=== PATIENT | male | born 1970 | race Two or more races ===

== ENCOUNTER 2018-07-22 09:22 | Inpatient (IN) | payer SELFPAY ==
[~2018-07-22] VITALS: Ht 170.2 cm; Wt 80.5 kg
--- NOTE | 2018-07-22 09:30 | NUR ---
ED Nurse Note: patient was brought by RA from the street, complaining for abdomen pain 01/19, no N/V/D. pt. has unsteady gait, AAO x 4, skin is dry, has some abrasions on his arms, patient has jaundice. per patient he had 1 botle of beer last night. pt was placed on gown and connected to monotor.
[2018-07-22] MEDS ORDERED: Isovue-300 100ml vial INJ PRN (09:45)
[2018-07-22] MEDS ORDERED: Morphine Sulfate 4mg/ml Inj (IV/IM USE ONLY) IVP ONE (09:45)
[2018-07-22] MEDS ORDERED: LORazepam Inj 2mg/ml 1ml IV ONE (09:45)
[2018-07-22 09:53] LABS: HEMATOCRIT 38.5 % (42.0-52.0); MEAN CORPUSCULAR VOLUME 112 FL (80-99); PLATELET COUNT 136 K/UL (150-450); RED BLOOD COUNT 3.43 M/UL (4.70-6.10); RED CELL DISTRIBUTION WIDTH 14.2 % (11.6-14.8); WHITE BLOOD COUNT 6.8 K/UL (4.8-10.8)
[2018-07-22 10:02] LABS: ANION GAP 6 mmol/L (5-15); BLOOD UREA NITROGEN 5 mg/dL (7-18); CALCIUM 8.4 MG/DL (8.5-10.1); CARBON DIOXIDE 26 MMOL/L (21-32); CHLORIDE 94 MMOL/L (98-107); CREATININE 0.8 MG/DL (0.55-1.30); POTASSIUM 3.9 MMOL/L (3.5-5.1); SODIUM 126 MMOL/L (136-145)
[2018-07-22 10:07] LABS: ALANINE AMINOTRANSFERASE 59 U/L (12-78); ALBUMIN 2.4 G/DL (3.4-5.0); ALBUMIN/GLOBULIN RATIO 0.4 (1.0-2.7); ALKALINE PHOSPHATASE 320 U/L (46-116); ASPARTATE AMINO TRANSFERASE 152 U/L (15-37); BILIRUBIN,TOTAL 10.1 MG/DL (0.2-1.0)
[2018-07-22 10:16] LABS: BILIRUBIN,DIRECT 7.7 MG/DL (0.0-0.3)
--- NOTE | 2018-07-22 10:22 | Emergency Room Report ---
History of Present Illness General Chief Complaint: Abdominal Pain Source: Patient, EMS Present Illness HPI 48-year-old male presents ED for evaluation. Patient brought in by EMS from the street. Complaining of abdominal pain. Left-sided, sharp, 7 out of 10, nonradiating. Patient admits to alcohol use. States he had a drink this morning. Appears tremulous. States he drinks every day. States he's had paracentesis done before on his abdomen. Denies chest pain or shortness of breath. Denies fevers or chills. No other aggravating relieving factors. Denies any other associated symptoms Allergies: Coded Allergies: No Known Allergies (Unverified , 07/22/18) Patient History Past Medical History: none Past Surgical History: none Pertinent Family History: none Social History: Denies: smoking, alcohol use, drug use Immunizations: UTD Reviewed Nursing Documentation: PMH: Agreed; PSxH: Agreed Nursing Documentation-PMH Past Medical History: No Stated History Review of Systems All Other Systems: negative except mentioned in HPI Physical Exam Vital Signs Date Time Temp Pulse Resp B/P (MAP) Pulse Ox O2 Delivery O2 Flow Rate FiO2 07/22/18 09:16 98.1 91 14 120/83 97 Room Air Sp02 EP Interpretation: reviewed, normal General Appearance: no apparent distress, alert, GCS 15, other - tremulous Head: normocephalic, atraumatic Eyes: bilateral eye normal inspection, bilateral eye PERRL, bilateral eye scleral icterus ENT: hearing grossly normal, normal pharynx, no angioedema, normal voice Neck: full range of motion, supple/symm/no masses Respiratory: chest non-tender, lungs clear, normal breath sounds, speaking full sentences Cardiovascular #1: regular rate, rhythm, no edema Cardiovascular #2: 2+ carotid (R), 2+ carotid (L), 2+ radial (R), 2+ radial (L) , 2+ dorsalis pedis (R), 2+ dorsalis pedis (L) Gastrointestinal: normal bowel sounds, soft, no guarding, no rebound, distended Rectal: deferred Genitourinary: normal inspection, no CVA tenderness Musculoskeletal: back normal, gait/station normal, normal range of motion, non- tender Neurologic: alert, oriented x3, responsive, motor strength/tone normal, sensory intact, speech normal Psychiatric: judgement/insight normal, memory normal, mood/affect normal, no suicidal/homicidal ideation Reflexes: 3+ bicep (R), 3+ bicep (L), 3+ tricep (R), 3+ tricep (L), 3+ knee (R) , 3+ knee (L) Skin: normal color, no rash, warm/dry, well hydrated Lymphatic: no adenopathy Medical Decision Making Diagnostic Impression: Primary Impression: Cirrhosis Qualified Codes: K70.31 - Alcoholic cirrhosis of liver with ascites Additional Impressions: Ascites Qualified Codes: K70.31 - Alcoholic cirrhosis of liver with ascites Liver failure Qualified Codes: K72.90 - Hepatic failure, unspecified without coma Jaundice Portal hypertension Alcohol withdrawal Qualified Codes: F10.230 - Alcohol dependence with withdrawal, uncomplicated ER Course Hospital Course 48 yo M presents with jaundice, tremulous, LUQ pain Differential diagnoses include: pancreatitis, splenic rupture, ascites Clinical course Patient placed on stretcher. playground monitor. After initial history and physical I ordered labs, IV fluids, ativan, pain medication and CT scan Labs - no leukocytosis, Hb/Hct stable. Na 126, LFTs markedly elevated, ETOH elevated CT abdomen and pelvis - cirrhotic liver, portal hypertension, ascites, s/p splenectomy Ascites is not causing shortness of breath or instability. No indication for an emergent paracentesis in ED. Can be done by IR Dr. Monsivais will consult and see the patient. patient will be admitted to Dr Castro for inpatient management I feel this is a highly complex case requiring extensive working including EKG/ Rhythm strip, Xray/CT/US, Blood/urine lab work, repeat exams while in ED, and administration of strong opiates/narcotics for pain control, admission to hospital or close patient follow up. Diagnosis - cirrhosis, ascites, liver failure, jaundice, portal hypertension, alcohol withdrawal Patient admitted to floor in serious condition Labs Test 07/22/18 09:35 White Blood Count 6.8 K/UL (4.8-10.8) Red Blood Count 3.43 M/UL (4.70-6.10) Hemoglobin 13.0 G/DL (14.2-18.0) Hematocrit 38.5 % (42.0-52.0) Mean Corpuscular Volume 112 FL (80-99) Mean Corpuscular Hemoglobin 37.8 PG (27.0-31.0) Mean Corpuscular Hemoglobin Concent 33.7 G/DL (32.0-36.0) Red Cell Distribution Width 14.2 % (11.6-14.8) Platelet Count 136 K/UL (150-450) Mean Platelet Volume 6.9 FL (6.5-10.1) Neutrophils (%) (Auto) % (45.0-75.0) Lymphocytes (%) (Auto) % (20.0-45.0) Monocytes (%) (Auto) % (1.0-10.0) Eosinophils (%) (Auto) % (0.0-3.0) Basophils (%) (Auto) % (0.0-2.0) Differential Total Cells Counted 100 Neutrophils % (Manual) 62 % (45-75) Lymphocytes % (Manual) 23 % (20-45) Monocytes % (Manual) 12 % (1-10) Eosinophils % (Manual) 3 % (0-3) Basophils % (Manual) 0 % (0-2) Band Neutrophils 0 % (0-8) Platelet Estimate Decreased Platelet Morphology Normal Macrocytosis 2+ Target Cells 1+ Sodium Level 126 MMOL/L (136-145) Potassium Level 3.9 MMOL/L (3.5-5.1) Chloride Level 94 MMOL/L (98-107) Carbon Dioxide Level 26 MMOL/L (21-32) Anion Gap 6 mmol/L (5-15) Blood Urea Nitrogen 5 mg/dL (7-18) Creatinine 0.8 MG/DL (0.55-1.30) Estimat Glomerular Filtration Rate > 60 mL/min (>60) Glucose Level 95 MG/DL (74-106) Calcium Level 8.4 MG/DL (8.5-10.1) Total Bilirubin 10.1 MG/DL (0.2-1.0) Direct Bilirubin 7.7 MG/DL (0.0-0.3) Aspartate Amino Transf (AST/SGOT) 152 U/L (15-37) Alanine Aminotransferase (ALT/SGPT) 59 U/L (12-78) Alkaline Phosphatase 320 U/L (46-116) Total Protein 7.8 G/DL (6.4-8.2) Albumin 2.4 G/DL (3.4-5.0) Globulin 5.4 g/dL Albumin/Globulin Ratio 0.4 (1.0-2.7) Lipase 321 U/L (73-393) Serum Alcohol 239 mg/dL CT/MRI/US Diagnostic Results CT/MRI/US Diagnostic Results : Imaging Test Ordered: CT A/P Impression 1. Nodular liver surface suggestive of cirrhosis with moderate amount of ascites. Splenomegaly with paraesophageal varices suggestive of portal hypertension. 2. Status post splenectomy. Last Vital Signs Date Time Temp Pulse Resp B/P (MAP) Pulse Ox O2 Delivery O2 Flow Rate FiO2 07/22/18 09:16 98.1 91 14 120/83 97 Room Air Status: improved Disposition: ADMITTED INPATIENT Condition: Serious Scripts No Active Prescriptions or Reported Meds Yobani Fountain MD Jul 22, 2018 10:22
--- NOTE | 2018-07-22 10:30 | NUR ---
ED Nurse Note: patient went for CT of abdomen
--- NOTE | 2018-07-22 10:50 | NUR ---
ED Nurse Note: pt. came back from CT VSS, no s/s of acute disstress, pt connected back to monitor
[2018-07-22 10:52] VITALS: BP 138/87
[2018-07-22 11:12] VITALS: BP 114/68
--- NOTE | 2018-07-22 11:25 | Diagnostic Imaging Report ---
INDICATION: Abdominal pain TECHNIQUE: Multiple, contiguous axial cuts of the abdomen and pelvis are obtained from the lung bases to the ischial tuberosities. Sagittal and coronal reformatted images are available. One or more of the following dose reduction techniques were used: automated exposure control, adjustment of the mA and/or kV according to patient size, use of iterative reconstruction technique. COMPARISON: None FINDINGS: Mild bilateral lower lobe subsegmental atelectasis. The lung bases are otherwise clear. The liver surface is nodular, may be suggestive of cirrhosis. Moderate amount of ascites. Status post cholecystectomy. Splenomegaly at 13.7 cm indicative of portal hypertension. Paraesophageal varices are seen. The bile ducts and pancreas are normal. The adrenal gland are unremarkable. The kidneys are normal in size and contour. No stones, lesions or hydronephrosis. The appendix is unremarkable, as is the rest of the GI tract. Aorta is normal caliber. No adenopathy or extraluminal air. The osseous structures are normal IMPRESSION: 1. Nodular liver surface suggestive of cirrhosis with moderate amount of ascites. Splenomegaly with paraesophageal varices suggestive of portal hypertension. 2. Status post splenectomy. CTDI: 19.07 mGy DLP: 1183.55 mGycm
--- NOTE | 2018-07-22 12:07 | NUR ---
ED Nurse Note: pt prepared for inpt admission awaiting bed assignment. pt cleansed and swabs obtained. skin with mutliple abrasion and ecchymosis, pictures taken. pt tolerates well. no new orders noted
--- NOTE | 2018-07-22 12:38 | NUR ---
CASE MANAGEMENT: INITIAL REVIEW 48 YO M REY FROM THE STREET CC: ABD PAIN PMHx: DENIES SI:ETOH WITHDRAWAL. JAUNDICE. CIRRHOSIS. T 98.1 HR 91 RR 14 B/P 120/83 SATS 97% ON RA NA 126 CL 94 BUN 5 CA 8.4 TBILI 10.1 DBILI 7.7 AST 152 ALP 320 IS: PEPCID IV X1 MORPHINE IV X1 NS BOLUS X1 ATIVAN IV X1 PATIENT ADMITTED TO MED/SURG 07/22/2018 @ 1113 DCP: TO BE ARRANGED Addendum: 07/22/18 at 1532 by Ai Carmen CM INTERQUAL MET FOR ACUTE
--- NOTE | 2018-07-22 12:47 | NUR ---
ED Nurse Note: ATTEMPTED TO GIVE REPORT TO DAVID RN NOT AVAILABLE AND TO CALL BACK
[2018-07-22 12:48] VITALS: BP 103/77
--- NOTE | 2018-07-22 13:15 | NUR ---
ED Nurse Note: REPORT GIVEN TO 4 DAVID RN. PT WITH MINI COG TEST INITIATED IN ED PT UNABLE TO PERFOR. HOMELESS DC CRITERIA PAPERS SENT WITH PT CHART TO [facility] FOR PTS DC FROM INPATIENT WHEN PERFORMED
[2018-07-22] MEDS ORDERED: LORazepam Inj 2mg/ml 1ml IV PRN (14:45)
[2018-07-22 16:00] VITALS: BP 124/79
--- NOTE | 2018-07-22 16:44 | NUR ---
NURSE NOTES: Pt is difficult to assess intoxicated at this time. Wakes up spontaneously to answer some questions. Pt has been sleeping since arrival on floor. Pt is malodorous. Presence of bilateral edema . Abdomen is large and distended. Per report of Er nurse pt had incontinence episode of BM in ER. Bowel sounds present. Pt also has a small skin concern to left hip area
[2018-07-22] MEDS: Lactulose 20gm/30ml UDC ORAL SCH (18:28)
[2018-07-22] MEDS: Thiamine 100mg in D5W 55ml IVPB SCH (18:50)
[2018-07-22] MEDS: Folic Acid 1 MG, Magnesium Sulfate 2,000 MG, Multivitamin - 12 Injection 10 ML in Sodiu... IV SCH (18:50)
--- NOTE | 2018-07-22 19:26 | NUR ---
NURSE NOTES: Dr Jacobs called to inform him that pt has scrotal swelling as well as bilateral edema, and abdominal distention. Dr gave orders for paracentesis, and to elevate scrotal area . Pt family has been at bed side since earlier in shift. Informed mortgage underwriter that that pt does not have any other medical history besides alcohol abuse, cirrhosis. pt does not have hx of DM or heart issues. Per ex- has been seperated for over 5 years, but does want to be informed about any changes. Pt is slightly more talkative since admittance , but still remains to fall asleep quickly when spoken too. Orders placed for paracentesis, and order for Tylenol 325 mg tid for pain
[2018-07-22 20:00] VITALS: BP 141/89
--- NOTE | 2018-07-22 20:50 | NUR ---
NURSE NOTES: Received report from MOISES Buck. Patient A&Ox2. On room air, no signs labored breathing. IV intact, patent, and infusing IV fluids. Patient complaining of 10/10 pain and nausea. Notified MD to receive addition orders and received them. Will implement and continue to monitor. Bed in lowest position with call light in reach.
--- NOTE | 2018-07-22 20:58 | NUR ---
HAND-OFF: Report given to Aishwarya DE LEON.
--- NOTE | 2018-07-22 20:59 | NUR ---
NURSE NOTES: MD also aware of HR off 115, orders for pain medication have been give. MD also aware that patient has bilateral edema but SCDs have dev ordered. Will put in order for venous duplex per MD before SCDs can be applied.
[2018-07-22] MEDS: Morphine Sulfate 2mg/ml Inj IVP PRN (22:20)
[2018-07-23] VITALS: BP 118/63
[2018-07-23 04:00] VITALS: BP 110/65
--- NOTE | 2018-07-23 07:30 | NUR ---
NURSE NOTES: Received pt from MOISES LU. Pt is orient x3. No SOB or acute respiratory distress noted. pt has in tact iv access RAC 20g is running well. Dr RUCKER visited pt and is aware Urin is reddish with no new order.all needs attended, bed is locked and is in the lowest position. call light within easy reach. will continue to monitor.
[2018-07-23 08:00] VITALS: BP 106/68
[2018-07-23 08:15] LABS: ANION GAP 9 mmol/L (5-15); BLOOD UREA NITROGEN 5 mg/dL (7-18); CALCIUM 7.8 MG/DL (8.5-10.1); CARBON DIOXIDE 23 MMOL/L (21-32); CHLORIDE 99 MMOL/L (98-107); CREATININE 0.8 MG/DL (0.55-1.30); POTASSIUM 4.2 MMOL/L (3.5-5.1); SODIUM 131 MMOL/L (136-145)
--- NOTE | 2018-07-23 08:15 | History and Physical Report ---
DATE OF ADMISSION: 07/22/2018 CHIEF COMPLAINT: Cirrhosis, ascites, and end-stage liver disease. HISTORY OF PRESENT ILLNESS: The patient is a 48-year-old male. He has a history of cirrhosis, presented with complaints of alcohol intoxication. He was noted to be jaundiced with a bilirubin of 10. According to the patient, he has been drinking for "years." On evaluation of the emergency room, the patient had a CT scan of the abdomen showed moderate ascites with a nodular-appearing liver consistent with cirrhosis. The patient is now admitted with complaints of abdominal pain. He is noted to have lower extremity edema. PAST MEDICAL HISTORY: As above. PAST SURGICAL HISTORY: Includes cholecystectomy. CURRENT MEDICATIONS: Reconciled and reviewed. ALLERGIES: None. FAMILY HISTORY: Unknown. SOCIAL HISTORY: There is no known history of tobacco or drugs. The patient has been drinking for many years. PHYSICAL EXAMINATION: VITAL SIGNS: Temperature 98, pulse 106, respirations 18, and blood pressure 118/63. GENERAL: The patient is well developed. He is icteric. NECK: Supple. HEART: Regular rate and rhythm. LUNGS: Clear. ABDOMEN: Soft and distended with a fluid wave. EXTREMITIES: No clubbing or cyanosis. 1 to 2+ pitting edema. The patient has multiple abrasions on his feet. LABORATORY DATA: White count 6 and hemoglobin 13. Sodium 126 and potassium 3.9. Bilirubin of 10. Alcohol level was 239. ASSESSMENT: This is an unfortunate male with a history of end-stage liver disease, admitted with compensated liver failure secondary to persistent alcohol use. He has ascites and hyponatremia due to his liver disease. PLAN: 1. Fluid restriction. 2. Therapeutic paracentesis. 3. PPI treatment. 4. Ativan and IV hydration with multivitamins, thiamine, and folic acid. 5. we will follow up paracentesis results. Jeni Jalloh JOB#: [id number] CC:
--- NOTE | 2018-07-23 08:17 | NUR ---
HAND-OFF: Report given to MOISES Sharma.
--- NOTE | 2018-07-23 08:24 | NUR ---
NURSE NOTES: Received plt [address] jewell left massage regarding plt and HR waiting to call back. will continue to monitor.
[2018-07-23] MEDS: Spironolactone 50mg tab ORAL SCH (08:53)
[2018-07-23] MEDS: Lactulose 20gm/30ml UDC ORAL SCH ×3 (08:53→18:00)
--- NOTE | 2018-07-23 10:07 | NUR ---
NURSE NOTES: Dr RUCKER called back and he is aware about Temperature, HR, PLT, no new order. will continue to monitor.
[2018-07-23 12:00] VITALS: BP 108/64
[2018-07-23 12:16] LABS: INR 1.6 (0.9-1.1)
[2018-07-23 12:17] LABS: HEMATOCRIT 29.9 % (42.0-52.0); HEMOGLOBIN 10.2 G/DL (14.2-18.0); MEAN CORPUSCULAR VOLUME 113 FL (80-99); PLATELET COUNT 100 K/UL (150-450); RED BLOOD COUNT 2.64 M/UL (4.70-6.10); RED CELL DISTRIBUTION WIDTH 14.7 % (11.6-14.8); WHITE BLOOD COUNT 6.3 K/UL (4.8-10.8)
--- NOTE | 2018-07-23 12:37 | Consultation ---
History of Present Illness General Date patient seen: Jul 23, 2018 Reason for Hospitalization: Abdominal Pain Present Illness HPI 48 year old male with heavy EtOH history who is a poor historian presented with abdominal pain. states pain left side upper abdomen discomfort generalized. mild nausea. came in for evaluation of abdominal pain. CT demonstrated ascites and liver cirrhosis. surgery called to evaluate for abdominal pain. patient seen, chart reviewed, patient examined. Allergies: Coded Allergies: No Known Allergies (Unverified , 07/22/18) Medication History No Active Prescriptions or Reported Meds Patient History History Provided By: Patient, Medical Record, PMD Healthcare decision maker Resuscitation status Full Code Advanced Directive on File Past Medical/Surgical History Past Medical/Surgical History: (1) Abdominal pain (2) Ascites (3) Cirrhosis (4) Jaundice (5) Liver failure (6) Portal hypertension (7) Alcohol withdrawal Review of Systems Review of Symptoms General ROS: no weight loss or fever Psychological ROS: no depression or mood changes, no memory loss Ophthalmic ROS: no visual changes or eye irritation ENT ROS: no nasal congestion, hearing loss, dizziness Allergy and Immunology ROS: no allergic symptoms or urticaria Hematological and Lymphatic ROS: no swollen glands, unusual bleeding or bruising Endocrine ROS: no polyuria, polydipsia, weight changes, temperature intolerance Respiratory ROS: no cough, shortness of breath, or wheezing Cardiovascular ROS: no chest pain or dyspnea on exertion Gastrointestinal ROS: denies abdominal pain, bright red blood in stool. Musculoskeletal ROS: no myalgias or arthralgias Neurological ROS: no TIA or stroke symptoms Dermatological ROS: no new or changing skin lesions, rashes or pruritis Physical Exam Physical Exam General appearance: alert, cooperative, no distress, appears stated age Head: Normocephalic, without obvious abnormality, atraumatic Eyes: conjunctivae/corneas clear. PERRL, EOM's intact. Fundi benign Throat: Lips, mucosa, and tongue normal. Teeth and gums normal Neck: supple, symmetrical, trachea midline, no adenopathy, thyroid: not enlarged, symmetric, no tenderness/mass/nodules, no carotid bruit and no JVD Lungs: clear to auscultation bilaterally Heart: regular rate and rhythm, S1, S2 normal, no murmur, click, rub or gallop Abdomen: soft, non-tender. Bowel sounds normal. No masses, no organomegaly Extremities: extremities normal, atraumatic, no cyanosis or edema Pulses: 2+ and symmetric Skin: Skin color, texture, turgor normal. No rashes or lesions Neurologic: Grossly normal Last 24 Hour Vital Signs Date Time Temp Pulse Resp B/P (MAP) Pulse Ox O2 Delivery O2 Flow Rate FiO2 07/23/18 09:00 Room Air 07/23/18 08:54 124 106/68 07/23/18 08:00 99.8 124 20 106/68 (81) 98 07/23/18 04:00 99.2 116 18 110/65 (80) 95 07/23/18 00:00 98.7 106 18 118/63 (81) 94 07/22/18 21:00 Room Air 07/22/18 20:00 97.6 115 18 141/89 (106) 95 07/22/18 20:00 07/22/18 16:26 Room Air 07/22/18 16:00 Room Air 07/22/18 16:00 97.5 124/79 (94) 07/22/18 15:46 Room Air 07/22/18 15:41 Room Air 07/22/18 13:12 82 18 103/77 99 Room Air 07/22/18 12:48 82 18 103/77 99 Room Air Intake and Output 07/22/18 07/23/18 18:59 06:59 Intake Total 2260 ml 116 ml Output Total 400 ml 250 ml Balance 1860 ml -134 ml Intake Oral 260 ml 60 ml IV Total 2000 ml 56 ml Output Urine Total 400 ml 250 ml # Voids 1 # Bowel Movements 2 Laboratory Tests Test 07/23/18 07:00 07/23/18 11:45 Sodium Level 131 MMOL/L (136-145) L Potassium Level 4.2 MMOL/L (3.5-5.1) Chloride Level 99 MMOL/L (98-107) Carbon Dioxide Level 23 MMOL/L (21-32) Anion Gap 9 mmol/L (5-15) Blood Urea Nitrogen 5 mg/dL (7-18) L Creatinine 0.8 MG/DL (0.55-1.30) Estimat Glomerular Filtration Rate > 60 mL/min (>60) Glucose Level 73 MG/DL (74-106) L Calcium Level 7.8 MG/DL (8.5-10.1) L Ammonia 62 umol/L (11-32) H White Blood Count Pending Red Blood Count Pending Hemoglobin Pending Hematocrit Pending Mean Corpuscular Volume Pending Mean Corpuscular Hemoglobin Pending Mean Corpuscular Hemoglobin Concent Pending Red Cell Distribution Width Pending Platelet Count Pending Mean Platelet Volume Pending Neutrophils (%) (Auto) Pending Lymphocytes (%) (Auto) Pending Monocytes (%) (Auto) Pending Eosinophils (%) (Auto) Pending Basophils (%) (Auto) Pending Prothrombin Time Pending Prothromb Time International Ratio Pending Activated Partial Thromboplast Time Pending Height (Feet): 5 Height (Inches): 7.00 Weight (Pounds): 178 Medications Current Medications Medications (Trade) Dose Ordered Sig/Jm Route PRN Reason Start Time Stop Time Status Last Admin Dose Admin Acetaminophen (Tylenol) 325 mg TIDPRN PRN ORAL Mild Pain/Temp > 100.5 07/22/18 18:45 08/21/18 18:44 07/22/18 20:30 Folic Acid 1 mg/ Magnesium Sulfate 2000 mg/ Multivitamins 10 ml/Sodium Chloride 1,014.2 ml @ 125 mls/ hr Q24H IV 07/22/18 16:00 08/21/18 15:59 07/22/18 18:50 Furosemide (Lasix) 40 mg DAILY IV 07/23/18 09:00 08/22/18 08:59 07/23/18 08:54 Iopamidol (Isovue-300 100ml) 100 ml NOW PRN INJ Radiology Procedure 07/22/18 09:45 Labetalol HCl (Normodyne) 100 mg Q12HR ORAL 07/23/18 09:00 08/22/18 08:59 07/23/18 08:54 Lactulose (Cephulac) 30 gm THREE TIMES A DAY ORAL 07/22/18 18:00 08/21/18 17:59 07/23/18 08:53 Lorazepam (Ativan 2mg/ml 1ml) 1 mg Q4H PRN IV Agitation/withdrawal symptoms 07/22/18 14:45 07/29/18 14:44 Morphine Sulfate (Morphine Sulfate) 0.5 mg Q4H PRN IVP Pain 4-10 07/22/18 21:15 07/29/18 21:14 07/22/18 22:20 Ondansetron HCl (Zofran) 4 mg Q4H PRN IVP Nausea & Vomiting 07/22/18 21:15 08/21/18 21:14 Pantoprazole (Protonix) 40 mg DAILY ORAL 07/23/18 09:00 08/22/18 08:59 07/23/18 08:53 Sodium Chloride 1,000 ml @ 75 mls/hr [id number] IV 07/22/18 14:45 08/21/18 14:44 07/23/18 04:35 Spironolactone (Aldactone) 50 mg DAILY ORAL 07/23/18 09:00 08/22/18 08:59 07/23/18 08:53 Thiamine HCl 100 mg/Dextrose 56 ml @ 112 mls/hr Q24H IVPB 07/22/18 16:00 08/21/18 15:59 07/22/18 18:50 Assessment/Plan Problem List: (1) Abdominal pain Assessment & Plan: abdominal pain likely secondary to enlarged spleedn CT noted. no acute surgical intervention planned medical management of decompensated cirrhosis fluid restriction will consider paracentesis if needed trend labs thank you ICD Codes: R10.9 - Unspecified abdominal pain SNOMED: [id number] [facility] [place] Hospital declaration INPATIENT level of care is warranted for this patient because patient is a 89 year old with who presents with suspicion of . I have a high level of concern because . Patient is at high risk for . Plan of care/treatment include . Patient care is expected to be greater than 2 midnights. OBSERVATION level of care is warranted for this patient. Patient is a 89 year old with who presents with . Patient will be admitted for 1 midnight, but if additional night(s) is/are necessary, patient will be converted to inpatient status for the entire hospitalization Disposition: Once the patient is stable to leave the hospital, I anticipate the patient will likely be discharged to the following environment: Estimated discharge date: I spent 70 minutes on this patient's case, and minutes was dedicated to counseling and/or care coordination. MIPS (Merit-based Incentive Payment System) Applicable CPT: 74818, 02191 CHECK ALL THAT ARE MET: Measure #5 (CHF): All ages. Prescribe MAXIMO/ARB upon discharge for patients with left ventricular systolic dysfunction. If not, the reason is clearly documented in the medical chart. Measure #8 (CHF): All ages. Prescribe a beta manjula upon discharge for patients with left ventricular systolic dysfunction. If not, the reason is clearly documented in the medical chart. Measure #47 Advance care plan or surrogate decision maker documented in the medical record. Measure #130 The provider has documented, updated, or reviewed the patients current medication list and has documented it in the patients note. Measure #374 (All): Send report to referring provider. Measure #407(Sepsis due to MSSA bacteremia): Age 18+ Patient treated with a beta-lactam antibiotic (Nafcillin, Oxacillin or Cefazolin) as definitive therapy. MEDICAL COMPLEXITY High complexity medical decision making (need 2/3 categories) Problem - need 4 points Acute/new problem with new plan for workup (4 points, 1 max) Acute/new problem without additional workup (3 points, 1 max) Unstable chronic problem actively being managed (2 point each, 2 max) Stable chronic problem actively being managed (1 point each, 2 max) Self-limited/transient process (constipation, muscle ache, etc) (1 point each , 2 max) Data - need 4 points Reviewed labs/imaging studies (1 points, 2 max) Independent review of imaging (EKG, xrays, etc) (2 points, 2 max) Discussed case with consult/other MD/RN (2 points, 2 max) High Risk - qualify if have one of the following: Severe exacerbation of acute problem, acute mental status change, IV narcotics , monitoring drug levels (vancomycin, INR, tacrolimus etc) Zoran Monsivais Jul 23, 2018 12:37
--- NOTE | 2018-07-23 14:16 | NUR ---
NURSE NOTES: paracentesis finished with out put 5.7 lit. will continue to monitor.
--- NOTE | 2018-07-23 14:18 | Pre-Procedure Note/Attestation ---
Pre-Procedure Note/Attestation Complete Prior to Procedure Planned Procedure: not applicable Procedure Narrative: paracentesis Indications for Procedure Pre-Operative Diagnosis: ascites Attestation I attest that I discussed the nature of the procedure; its benefits; risks and complications; and alternatives (and the risks and benefits of such alternatives ), prior to the procedure, with the patient (or the patient's legal real estate representative). I attest that, if there was a reasonable possibility of needing a blood transfusion, the patient (or the patient's legal real estate representative) was given the [facility] standardized written summary, pursuant to the Trent Anay Blood Safety Act ([place] Health and Safety Code # 1645, as amended). I attest that I re-evaluated the patient just prior to the surgery and that there has been no change in the patient's H&P, except as documented below: Prasanth Bates MD Jul 23, 2018 14:18
--- NOTE | 2018-07-23 14:19 | Brief Operative Note ---
Immediate Post Operative Note Operative Note Chief Complaint: abdominal distention Pre-op Diagnosis: ascites Procedure: Paracentesis Post-op Diagnosis: same Post-op Diagnosis: same as pre-op Findings: consistent w/pre-op dx studies Surgeon: Kathy BATES Anesthesia: local Specimen: yes - fluid sent to the lab Complications: none Condition: stable Fluids: none Implant(s) used?: No Prasanth Bates MD Jul 23, 2018 14:19
[2018-07-23] MEDS: Thiamine 100mg in D5W 55ml IVPB SCH (15:40)
[2018-07-23] MEDS: Folic Acid 1 MG, Magnesium Sulfate 2,000 MG, Multivitamin - 12 Injection 10 ML in Sodiu... IV SCH (15:40)
[2018-07-23 16:00] VITALS: BP 104/59
--- NOTE | 2018-07-23 16:46 | NUR ---
Social Service Note MARIELENA spoke with both t's Ana Niki [phone] and India Niki [phone] to obtain history. Dgt's last seen patient during . Dgt's believe patient is homeless. Patient's Alexandra Tay has been from patient for about 5 years. Patient is a chronic alcoholic. India states she noticed patient with yellow eyes and significant weight loss during April. MARIELENA addressed code status, hospice and placement. Patient's will meet with [facility] tomorrow to complete application. India will attempt to speak with patient to determine if he understands the severity of his illness with her family. MARIELENA discussed with Dr. Castro with will discuss with family. Will monitor and follow up.
--- NOTE | 2018-07-23 17:25 | Diagnostic Imaging Report ---
Indications: Ascites Technique: Ultrasound used to localize optimal puncture site. Sterile prepping and draping . Local anesthesia with 1% lidocaine. Under real-time ultrasound guidance, puncture peritoneal space using paracentesis needle. Stylet removed. Catheter placed to vacuum bottle suction. Total 5.7 liters of fluid aspirated. Patient tolerated procedure well, without immediate complication. Specimen was sent to the lab Findings: Followup sonography demonstrates complete resolution of peritoneal fluid. Impression: Successful ultrasound-guided paracentesis, yielding 5.7 liters of fluid
--- NOTE | 2018-07-23 19:22 | NUR ---
HAND-OFF: Report given to VIDAL.
[2018-07-23 20:00] VITALS: BP 110/65
[2018-07-24] VITALS: BP 96/55
--- NOTE | 2018-07-24 02:00 | NUR ---
NURSE NOTES: Received patient in bed, and DTR by bedside. On RA, no SOB, no acute distress. IV intact, patent on RAC running fluids. Patient is shaky with unstable gait. Reminded to use call light for any assistance. Bed in lowest position, locked, alarms on. Call light in reach.
[2018-07-24 04:00] VITALS: BP 107/52
--- NOTE | 2018-07-24 07:15 | NUR ---
HAND-OFF: Report given to Edith DE LEON.
--- NOTE | 2018-07-24 07:20 | NUR ---
NURSE NOTES: Received pt from MOISES DRAKE. Pt is alert and orient x3. No SOB or acute respiratory distress noted. pt is eating breakfast by him self. pt is shaking and has unsteady walk. pt has intact iv access RAC 20g is running well. All needs attended, bed is locked and is in the lowest position. call light within easy reach. will continue to monitor.
[2018-07-24 08:00] VITALS: BP 113/59
--- NOTE | 2018-07-24 08:39 | General Progress Note ---
Assessment/Plan Problem List: (1) Cirrhosis ICD Codes: K74.60 - Unspecified cirrhosis of liver SNOMED: 73342952 Qualifiers: Qualified Codes: K70.31 - Alcoholic cirrhosis of liver with ascites (2) Jaundice ICD Codes: R17 - Unspecified jaundice SNOMED: 50667747 (3) Liver failure ICD Codes: K72.90 - Hepatic failure, unspecified without coma SNOMED: 19047599 Qualifiers: Qualified Codes: K72.90 - Hepatic failure, unspecified without coma (4) Portal hypertension ICD Codes: K76.6 - Portal hypertension SNOMED: 81234538 (5) Abdominal pain ICD Codes: R10.9 - Unspecified abdominal pain SNOMED: 33803617 (6) Alcohol withdrawal ICD Codes: F10.239 - Alcohol dependence with withdrawal, unspecified SNOMED: 570830956 Qualifiers: Qualified Codes: F10.230 - Alcohol dependence with withdrawal, uncomplicated Status: stable, progressing Assessment/Plan follow up labs. diuretics if sodium ok. d/w dtr poor prognosis Subjective ROS Limited/Unobtainable: No Constitutional: Reports: malaise, weakness HEENT: Reports: no symptoms Cardiovascular: Reports: no symptoms Respiratory: Reports: no symptoms Gastrointestinal/Abdominal: Reports: no symptoms Genitourinary: Reports: no symptoms Neurologic/Psychiatric: Reports: depressed, pre-existing deficit Endocrine: Reports: no symptoms Hematologic/Lymphatic: Reports: no symptoms Allergies: Coded Allergies: No Known Allergies (Unverified , 07/22/18) All Systems: reviewed and negative except above Subjective calm. less abd pain. s/p paracentesis. more comfortable. Objective Last 24 Hour Vital Signs Date Time Temp Pulse Resp B/P (MAP) Pulse Ox O2 Delivery O2 Flow Rate FiO2 07/24/18 04:00 98.6 79 20 107/52 (70) 98 07/24/18 00:00 98.7 73 20 96/55 (69) 96 07/23/18 21:00 87 110/65 07/23/18 21:00 Room Air 07/23/18 20:00 99.4 87 20 110/65 (80) 94 07/23/18 16:54 99.0 07/23/18 16:00 101.8 80 20 104/59 (74) 95 07/23/18 12:00 99.5 91 20 108/64 (79) 94 07/23/18 09:00 Room Air 07/23/18 08:54 124 106/68 Intake and Output 07/23/18 07/24/18 19:00 07:00 Intake Total 1536 ml 1000 ml Output Total 800 ml 400 ml Balance 736 ml 600 ml Intake Oral 480 ml 250 ml IV Total 1056 ml 750 ml Output Urine Total 800 ml 400 ml Laboratory Tests 07/23/18 11:45: White Blood Count 6.3, Red Blood Count 2.64L, Hemoglobin 10.2L, Hematocrit 29.9L , Mean Corpuscular Volume 113H, Mean Corpuscular Hemoglobin 38.5H, Mean Corpuscular Hemoglobin Concent 34.0, Red Cell Distribution Width 14.7, Platelet Count 100L, Mean Platelet Volume 6.8, Neutrophils (%) (Auto) , Lymphocytes (%) ( Auto) , Monocytes (%) (Auto) , Eosinophils (%) (Auto) , Basophils (%) (Auto) , Differential Total Cells Counted 100, Neutrophils % (Manual) 74, Lymphocytes % ( Manual) 15L, Monocytes % (Manual) 10, Eosinophils % (Manual) 1, Basophils % ( Manual) 0, Band Neutrophils 0, Platelet Estimate DecreasedL, Platelet Morphology Normal, Macrocytosis 1+, Target Cells 2+, Prothrombin Time 16.9H, Prothromb Time International Ratio 1.6H, Activated Partial Thromboplast Time 35H 07/23/18 14:00: Body Fluid Source Paracentesis, Body Fluid Volume 24, Body Fluid Appearance Hazy , Body Fluid RBC 216, Body Fluid Total Nucleated Cells 52, Body Fluid Polynuclear WBCs (%) 7, Body Fluid Mononuclear WBCs (%) 56, Body Fluid Mesothelial Cells (%) 37 Height (Feet): 5 Height (Inches): 7.00 Weight (Pounds): 178 General Appearance: WD/WN Neck: supple Cardiovascular: regular rhythm Respiratory/Chest: lungs clear Abdomen: normal bowel sounds, non tender, soft, no organomegaly Edema: no edema noted Arm (L), no edema noted Arm (R), no edema noted Leg (L), no edema noted Leg (R), no edema noted Pedal (L), no edema noted Pedal (R), no edema noted 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
[2018-07-24] MEDS: Lactulose 20gm/30ml UDC ORAL SCH ×3 (09:00→17:08)
[2018-07-24] MEDS: Spironolactone 50mg tab ORAL SCH (09:18)
[2018-07-24 10:24] LABS: ALANINE AMINOTRANSFERASE 36 U/L (12-78); ALBUMIN 1.6 G/DL (3.4-5.0); ALBUMIN/GLOBULIN RATIO 0.4 (1.0-2.7); ALKALINE PHOSPHATASE 219 U/L (46-116); ANION GAP 6 mmol/L (5-15); ASPARTATE AMINO TRANSFERASE 99 U/L (15-37); BILIRUBIN,TOTAL 8.8 MG/DL (0.2-1.0); BLOOD UREA NITROGEN 6 mg/dL (7-18); CALCIUM 7.3 MG/DL (8.5-10.1); CARBON DIOXIDE 26 MMOL/L (21-32); CHLORIDE 102 MMOL/L (98-107); CREATININE 0.8 MG/DL (0.55-1.30); POTASSIUM 3.1 MMOL/L (3.5-5.1); SODIUM 134 MMOL/L (136-145)
[2018-07-24 10:27] LABS: BILIRUBIN,DIRECT 6.3 MG/DL (0.0-0.3)
--- NOTE | 2018-07-24 11:33 | NUR ---
NURSE NOTES: K 3.1 Dr jewell is aware all orders noted and carried out. will continue to monitor.
[2018-07-24 12:00] VITALS: BP 103/56
--- NOTE | 2018-07-24 14:22 | Surgery Progress Note ---
Surgery Progress Note Subjective Additional Comments no acute events. s/p paracentesis. pain improved. wants water. labs improved Objective Last 24 Hour Vital Signs Date Time Temp Pulse Resp B/P (MAP) Pulse Ox O2 Delivery O2 Flow Rate FiO2 07/24/18 12:00 98.3 76 18 103/56 (72) 97 07/24/18 09:19 82 113/59 07/24/18 09:00 Room Air 07/24/18 08:00 98.5 82 18 113/59 (77) 99 07/24/18 04:00 98.6 79 20 107/52 (70) 98 07/24/18 00:00 98.7 73 20 96/55 (69) 96 07/23/18 21:00 87 110/65 07/23/18 21:00 Room Air 07/23/18 20:00 99.4 87 20 110/65 (80) 94 07/23/18 16:54 99.0 07/23/18 16:00 101.8 80 20 104/59 (74) 95 I&O Intake and Output 07/23/18 07/24/18 18:59 06:59 Intake Total 1536 ml 1000 ml Output Total 800 ml 400 ml Balance 736 ml 600 ml Intake Oral 480 ml 250 ml IV Total 1056 ml 750 ml Output Urine Total 800 ml 400 ml Cardiovascular: RSR Respiratory: clear Abdomen: soft, distended, non-tender, present bowel sounds Laboratory Tests Test 07/24/18 09:35 Sodium Level 134 MMOL/L (136-145) L Potassium Level 3.1 MMOL/L (3.5-5.1) L Chloride Level 102 MMOL/L (98-107) Carbon Dioxide Level 26 MMOL/L (21-32) Anion Gap 6 mmol/L (5-15) Blood Urea Nitrogen 6 mg/dL (7-18) L Creatinine 0.8 MG/DL (0.55-1.30) Estimat Glomerular Filtration Rate > 60 mL/min (>60) Glucose Level 110 MG/DL (74-106) H Calcium Level 7.3 MG/DL (8.5-10.1) L Total Bilirubin 8.8 MG/DL (0.2-1.0) H Direct Bilirubin 6.3 MG/DL (0.0-0.3) H Aspartate Amino Transf (AST/SGOT) 99 U/L (15-37) H Alanine Aminotransferase (ALT/SGPT) 36 U/L (12-78) Alkaline Phosphatase 219 U/L (46-116) H Total Protein 6.0 G/DL (6.4-8.2) L Albumin 1.6 G/DL (3.4-5.0) L Globulin 4.4 g/dL Albumin/Globulin Ratio 0.4 (1.0-2.7) L Plan Problems: (1) Abdominal pain Assessment & Plan: abdominal pain likely secondary to enlarged spleen CT noted. no acute surgical intervention planned medical management of decompensated cirrhosis fluid restriction s/p paracentesis. prognosis poor trend labs thank you Zoran Monsivais Jul 24, 2018 14:22
[2018-07-24] MEDS: Folic Acid 1 MG, Magnesium Sulfate 2,000 MG, Multivitamin - 12 Injection 10 ML in Sodiu... IV SCH (15:56)
[2018-07-24] MEDS: Thiamine 100mg in D5W 55ml IVPB SCH (15:57)
[2018-07-24 16:00] VITALS: BP 101/57
--- NOTE | 2018-07-24 16:00 | NUR ---
NURSE NOTES: pt is positive for VRE rectum, called Dr jewell x3 left massage no called back. Dr ramsey [id number] pt , he is aware no new order. will continue to monitor.
--- NOTE | 2018-07-24 19:26 | NUR ---
HAND-OFF: Report given to MOISES LAWSON.
--- NOTE | 2018-07-24 19:55 | NUR ---
NURSE NOTES: Received patient awake in bed, family at the bedside, pt able to verbalize needs, pt denies pain, no s/s of acute distress. IV site patent, asymptomatic, dressing dry and intact, IVF currently running at 125ml/hr. Bed on lowest position, 3 side rails up, family and ghost writer helped pt to the bathroom, returned safely to bed. Fluid restriction noted.
[2018-07-24 20:00] VITALS: BP 105/57
[2018-07-25 01:00] VITALS: BP 104/62
[2018-07-25 04:00] VITALS: BP 104/53
--- NOTE | 2018-07-25 07:11 | NUR ---
HAND-OFF: Report given to MOISES Naranjo. Endorsed fluid restriction.
[2018-07-25 08:00] VITALS: BP 105/66
[2018-07-25] MEDS: Spironolactone 50mg tab ORAL SCH (08:29)
[2018-07-25] MEDS: Lactulose 20gm/30ml UDC ORAL SCH ×3 (08:30→17:31)
--- NOTE | 2018-07-25 08:47 | General Progress Note ---
Assessment/Plan Problem List: (1) Cirrhosis ICD Codes: K74.60 - Unspecified cirrhosis of liver SNOMED: 86181832 Qualifiers: Qualified Codes: K70.31 - Alcoholic cirrhosis of liver with ascites (2) Jaundice ICD Codes: R17 - Unspecified jaundice SNOMED: 81845802 (3) Liver failure ICD Codes: K72.90 - Hepatic failure, unspecified without coma SNOMED: 84620685 Qualifiers: Qualified Codes: K72.90 - Hepatic failure, unspecified without coma (4) Portal hypertension ICD Codes: K76.6 - Portal hypertension SNOMED: 68819814 (5) Abdominal pain ICD Codes: R10.9 - Unspecified abdominal pain SNOMED: 65126776 (6) Alcohol withdrawal ICD Codes: F10.239 - Alcohol dependence with withdrawal, unspecified SNOMED: 634023773 Qualifiers: Qualified Codes: F10.230 - Alcohol dependence with withdrawal, uncomplicated Status: stable, progressing Assessment/Plan follow up labs. diuretics if sodium ok. d/w dtr poor prognosis dc planning Subjective ROS Limited/Unobtainable: No Constitutional: Reports: malaise, weakness HEENT: Reports: no symptoms Cardiovascular: Reports: no symptoms Respiratory: Reports: no symptoms Gastrointestinal/Abdominal: Reports: no symptoms Genitourinary: Reports: no symptoms Neurologic/Psychiatric: Reports: no symptoms Endocrine: Reports: no symptoms Hematologic/Lymphatic: Reports: no symptoms Allergies: Coded Allergies: No Known Allergies (Unverified , 07/22/18) All Systems: reviewed and negative except above Subjective calm. less abd pain. s/p paracentesis. more comfortable. alert and oriented Objective Last 24 Hour Vital Signs Date Time Temp Pulse Resp B/P (MAP) Pulse Ox O2 Delivery O2 Flow Rate FiO2 07/25/18 04:00 99.2 78 18 104/53 (70) 95 07/25/18 01:00 99.5 83 18 104/62 (76) 95 07/24/18 21:13 78 101/57 07/24/18 21:00 Room Air 07/24/18 20:00 99.8 84 18 105/57 (73) 96 07/24/18 16:00 98.7 78 18 101/57 (72) 99 07/24/18 12:00 98.3 76 18 103/56 (72) 97 2/12/19 09:19 82 113/59 07/24/18 09:00 Room Air Intake and Output 07/24/18 07/25/18 19:00 07:00 Intake Total 1461 ml 1035 ml Output Total 1200 ml Balance 261 ml 1035 ml Intake Oral 480 ml 110 ml IV Total 981 ml 925 ml Output Urine Total 1200 ml # Voids 3 # Bowel Movements 3 Laboratory Tests 07/24/18 09:35: Sodium Level 134L, Potassium Level 3.1L, Chloride Level 102, Carbon Dioxide Level 26, Anion Gap 6, Blood Urea Nitrogen 6L, Creatinine 0.8, Estimat Glomerular Filtration Rate > 60, Glucose Level 110H, Calcium Level 7.3L, Total Bilirubin 8.8H, Direct Bilirubin 6.3H, Aspartate Amino Transf (AST/SGOT) 99H, Alanine Aminotransferase (ALT/SGPT) 36, Alkaline Phosphatase 219H, Total Protein 6.0L, Albumin 1.6L, Globulin 4.4, Albumin/Globulin Ratio 0.4L Height (Feet): 5 Height (Inches): 7.00 Weight (Pounds): 177 Objective General Appearance: WD/WN Neck: supple Cardiovascular: regular rhythm Respiratory/Chest: lungs clear Abdomen: normal bowel sounds, non tender, soft, no organomegaly Edema: no edema noted Arm (L), no edema noted Arm (R), no edema noted Leg (L), no edema noted Leg (R), no edema noted Pedal (L), no edema noted Pedal (R), no edema noted Generalized 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
[2018-07-25 10:00] LABS: AMMONIA 92 umol/L (11-32)
[2018-07-25 10:08] LABS: ALANINE AMINOTRANSFERASE 30 U/L (12-78); ALBUMIN 1.6 G/DL (3.4-5.0); ALBUMIN/GLOBULIN RATIO 0.4 (1.0-2.7); ALKALINE PHOSPHATASE 197 U/L (46-116); ANION GAP 8 mmol/L (5-15); ASPARTATE AMINO TRANSFERASE 85 U/L (15-37); BILIRUBIN,DIRECT 5.6 MG/DL (0.0-0.3); BILIRUBIN,TOTAL 7.1 MG/DL (0.2-1.0); BLOOD UREA NITROGEN 11 mg/dL (7-18); CALCIUM 7.1 MG/DL (8.5-10.1); CARBON DIOXIDE 23 MMOL/L (21-32); CHLORIDE 102 MMOL/L (98-107); SODIUM 133 MMOL/L (136-145)
[2018-07-25] MEDS: Morphine Sulfate 2mg/ml Inj IVP PRN (11:55)
[2018-07-25 12:00] VITALS: BP 100/52
--- NOTE | 2018-07-25 13:11 | Surgery Progress Note ---
Surgery Progress Note Subjective Additional Comments no acute events. pain resolved. no n/v/f/c. tolerating diet. labs okay Objective Last 24 Hour Vital Signs Date Time Temp Pulse Resp B/P (MAP) Pulse Ox O2 Delivery O2 Flow Rate FiO2 07/25/18 12:00 98.8 80 20 100/52 (68) 97 07/25/18 09:00 Room Air 07/25/18 08:30 83 105/66 07/25/18 08:00 98.2 83 18 105/66 (79) 98 07/25/18 04:00 99.2 78 18 104/53 (70) 95 07/25/18 01:00 99.5 83 18 104/62 (76) 95 07/24/18 21:13 78 101/57 07/24/18 21:00 Room Air 07/24/18 20:00 99.8 84 18 105/57 (73) 96 07/24/18 16:00 98.7 78 18 101/57 (72) 99 I&O Intake and Output 07/24/18 07/25/18 18:59 06:59 Intake Total 1536 ml 1035 ml Output Total 1200 ml Balance 336 ml 1035 ml Intake Oral 480 ml 110 ml IV Total 1056 ml 925 ml Output Urine Total 1200 ml # Voids 3 # Bowel Movements 3 Cardiovascular: RSR Respiratory: clear Abdomen: soft, flat, non-tender, present bowel sounds Extremities: no cyanosis Laboratory Tests Test 07/25/18 09:30 Sodium Level 133 MMOL/L (136-145) L Potassium Level 3.0 MMOL/L (3.5-5.1) L Chloride Level 102 MMOL/L (98-107) Carbon Dioxide Level 23 MMOL/L (21-32) Anion Gap 8 mmol/L (5-15) Blood Urea Nitrogen 11 mg/dL (7-18) Creatinine 1.0 MG/DL (0.55-1.30) Estimat Glomerular Filtration Rate > 60 mL/min (>60) Glucose Level 112 MG/DL (74-106) H Calcium Level 7.1 MG/DL (8.5-10.1) L Total Bilirubin 7.1 MG/DL (0.2-1.0) H Direct Bilirubin 5.6 MG/DL (0.0-0.3) H Aspartate Amino Transf (AST/SGOT) 85 U/L (15-37) H Alanine Aminotransferase (ALT/SGPT) 30 U/L (12-78) Alkaline Phosphatase 197 U/L (46-116) H Ammonia 92 umol/L (11-32) H Total Protein 5.6 G/DL (6.4-8.2) L Albumin 1.6 G/DL (3.4-5.0) L Globulin 4.0 g/dL Albumin/Globulin Ratio 0.4 (1.0-2.7) L Plan Problems: (1) Abdominal pain Assessment & Plan: abdominal pain likely secondary to enlarged spleen CT noted. no acute surgical intervention planned medical management of decompensated cirrhosis fluid restriction s/p paracentesis. prognosis poor trend labs thank you Zoran Monsivais Jul 25, 2018 13:11
--- NOTE | 2018-07-25 14:57 | NUR ---
RD ASSESSMENT & RECOMMENDATIONS SEE CARE ACTIVITY FOR COMPLETE ASSESSMENT DAILY ESTIMATED NEEDS: Needs based on Liver dysfunction/ 76kg abw 25-30 kcals/kg 9731-6567 total kcals 1-1.5 g protein/kg 76-114 g total protein 1 L fluid restriction per MD NUTRITION DIAGNOSIS: Decreased sodium intake needs R/T liver dysfunction as evidenced by dx of cirrhosis, liver failure, and ascites, s/p paracentesis w/ 5.7 L removed. CURRENT DIET:REGULAR w/ 1 L fluid restriction PO DIET RECOMMENDATIONS: LOW NA/ texture as tolerated ADDITIONAL RECOMMENDATIONS: * Standing wt as able for accurate CBW * Monitor lytes daily while on diuretics, replete as needed * Fluid restriction per MD
--- NOTE | 2018-07-25 15:40 | NUR ---
Social Service Note MARIELENA met with patient's dgt [place] at bedside. SW explained skilled care, medi-elder coverage and homeless placement. Dgt states her mother (pt's ex-) and younger dgt will not be able to provide housing to patient. Patient will not relocate to [facility] and dgt is currently in school daytime caregiver and works. Family believes it is to soon to agree for hospice as patient has shown improvement in responding to medical intervention. MARIELENA contacted [facility] authority to assist with placement and possible substance abuse support. MARIELENA recommended PT eval and treatment. Will continue to monitor and assist.
[2018-07-25 15:56] VITALS: BP 114/68
[2018-07-25] MEDS: Folic Acid 1 MG, Magnesium Sulfate 2,000 MG, Multivitamin - 12 Injection 10 ML in Sodiu... IV SCH (17:31)
[2018-07-25] MEDS: Thiamine 100mg in D5W 55ml IVPB SCH (17:31)
--- NOTE | 2018-07-25 19:53 | NUR ---
HAND-OFF: Report given to Rodri KIM RN.
[2018-07-25 20:00] VITALS: BP 107/64
--- NOTE | 2018-07-25 20:15 | NUR ---
NURSE NOTES: Received report from Jose A Beard RN. Patient A&Ox4, primarily Gambian speaking. On room air, no signs of distress or labored breathing. IV intact, patent and infusing IV fluids. Bed in lowest position with call light in reach. Will continue with plan of care.
[2018-07-26] VITALS: BP 104/57
--- NOTE | 2018-07-26 07:24 | General Progress Note ---
Assessment/Plan Problem List: (1) Cirrhosis ICD Codes: K74.60 - Unspecified cirrhosis of liver SNOMED: 65396234 Qualifiers: Qualified Codes: K70.31 - Alcoholic cirrhosis of liver with ascites (2) Jaundice ICD Codes: R17 - Unspecified jaundice SNOMED: 79348398 (3) Liver failure ICD Codes: K72.90 - Hepatic failure, unspecified without coma SNOMED: 79048796 Qualifiers: Qualified Codes: K72.90 - Hepatic failure, unspecified without coma (4) Portal hypertension ICD Codes: K76.6 - Portal hypertension SNOMED: 88163068 (5) Abdominal pain ICD Codes: R10.9 - Unspecified abdominal pain SNOMED: 85323447 (6) Alcohol withdrawal ICD Codes: F10.239 - Alcohol dependence with withdrawal, unspecified SNOMED: 316598117 Qualifiers: Qualified Codes: F10.230 - Alcohol dependence with withdrawal, uncomplicated Status: stable, progressing Assessment/Plan follow up labs. diuretics if sodium ok. d/w dtr poor prognosis dc planning Subjective ROS Limited/Unobtainable: No Constitutional: Reports: malaise, weakness HEENT: Reports: no symptoms Cardiovascular: Reports: no symptoms Respiratory: Reports: no symptoms Gastrointestinal/Abdominal: Reports: abdomen distended Genitourinary: Reports: no symptoms Neurologic/Psychiatric: Reports: no symptoms Endocrine: Reports: no symptoms Hematologic/Lymphatic: Reports: no symptoms Allergies: Coded Allergies: No Known Allergies (Unverified , 07/22/18) All Systems: reviewed and negative except above Subjective calm. less abd pain. s/p paracentesis. more comfortable. alert and oriented labs pending Objective Last 24 Hour Vital Signs Date Time Temp Pulse Resp B/P (MAP) Pulse Ox O2 Delivery O2 Flow Rate FiO2 07/26/18 00:00 98.8 81 18 104/57 (73) 97 07/25/18 21:00 Room Air 07/25/18 21:00 82 107/64 07/25/18 20:00 98.5 82 18 107/64 (78) 97 07/25/18 15:56 97.7 77 19 114/68 (83) 98 07/25/18 12:00 98.8 80 20 100/52 (68) 97 07/25/18 09:00 Room Air 07/25/18 08:30 83 105/66 07/25/18 08:00 98.2 83 18 105/66 (79) 98 Intake and Output 07/25/18 07/26/18 19:00 07:00 Intake Total 1515 ml 625 ml Balance 1515 ml 625 ml Intake Oral 840 ml IV Total 675 ml 625 ml # Voids 8 3 # Bowel Movements 1 2 Laboratory Tests 07/25/18 09:30: Sodium Level 133L, Potassium Level 3.0L, Chloride Level 102, Carbon Dioxide Level 23, Anion Gap 8, Blood Urea Nitrogen 11, Creatinine 1.0, Estimat Glomerular Filtration Rate > 60, Glucose Level 112H, Calcium Level 7.1L, Total Bilirubin 7.1H, Direct Bilirubin 5.6H, Aspartate Amino Transf (AST/SGOT) 85H, Alanine Aminotransferase (ALT/SGPT) 30, Alkaline Phosphatase 197H, Ammonia 92H, Total Protein 5.6L, Albumin 1.6L, Globulin 4.0, Albumin/Globulin Ratio 0.4L Height (Feet): 5 Height (Inches): 7.00 Weight (Pounds): 177 Objective General Appearance: WD/WN Neck: supple Cardiovascular: regular rhythm Respiratory/Chest: lungs clear Abdomen: normal bowel sounds, non tender, soft, no organomegaly Edema: no edema noted Arm (L), no edema noted Arm (R), no edema noted Leg (L), no edema noted Leg (R), no edema noted Pedal (L), no edema noted Pedal (R), no edema noted 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
--- NOTE | 2018-07-26 07:34 | NUR ---
HAND-OFF: Report given to Jose A Beard RN.
[2018-07-26 08:00] VITALS: BP 100/58
[2018-07-26] MEDS: Lactulose 20gm/30ml UDC ORAL SCH ×3 (09:17→17:21)
[2018-07-26] MEDS: Spironolactone 50mg tab ORAL SCH (09:17)
--- NOTE | 2018-07-26 10:30 | NUR ---
PT EVALUATION NOTE: Patient seen for PT evaluation. Patient is independent with all functional mobility. Skilled inpatient PT intervention not indicated at this time, patient discharged from PT, Jose A RN notified. Discharge disposition to be determined. No DME needs at this time.
--- NOTE | 2018-07-26 11:24 | NUR ---
NURSE NOTES: RN LEFT MESSAGE FOR FREDY REGARDING FAMILY BRINGING IN MEDI-[employer]ICHOL PAPERWORK AND REQUEST FOR ROSS'S NOTE FOR MISSING SCHOOL YESTERDAY. PT'S MEDI[employer]NICHOL PAPERWORK PLACED IN PT'S CHART.
[2018-07-26 12:00] VITALS: BP 108/64
[2018-07-26 15:41] VITALS: BP 119/86
[2018-07-26] MEDS: Folic Acid 1 MG, Magnesium Sulfate 2,000 MG, Multivitamin - 12 Injection 10 ML in Sodiu... IV SCH (16:26)
[2018-07-26] MEDS: Thiamine 100mg in D5W 55ml IVPB SCH (16:26)
--- NOTE | 2018-07-26 17:07 | Surgery Progress Note ---
Surgery Progress Note Subjective Additional Comments no acute events. comfortable. pain improving. still with LUQ discomfort Objective Last 24 Hour Vital Signs Date Time Temp Pulse Resp B/P (MAP) Pulse Ox O2 Delivery O2 Flow Rate FiO2 07/26/18 15:41 97.5 64 18 119/86 (97) 100 07/26/18 12:00 98.9 75 18 108/64 (79) 98 07/26/18 09:00 Room Air 07/26/18 09:00 86 100/58 07/26/18 08:00 97.4 86 19 100/58 (72) 96 07/26/18 00:00 98.8 81 18 104/57 (73) 97 07/25/18 21:00 Room Air 07/25/18 21:00 82 107/64 07/25/18 20:00 98.5 82 18 107/64 (78) 97 I&O Intake and Output 07/25/18 07/26/18 19:00 07:00 Intake Total 1515 ml 700 ml Balance 1515 ml 700 ml Intake Oral 840 ml IV Total 675 ml 700 ml # Voids 8 3 # Bowel Movements 1 2 Drains: none Cardiovascular: RSR Respiratory: clear Abdomen: soft, non-tender, present bowel sounds, non-distended - fluid Extremities: other Plan Problems: (1) Abdominal pain Assessment & Plan: abdominal pain likely secondary to enlarged spleen CT noted. no acute surgical intervention planned medical management of decompensated cirrhosis fluid restriction s/p paracentesis. prognosis poor trend labs pain improving spoke with daughter at bedside. s he understands his condition thank you Zoran Monsivais Jul 26, 2018 17:07
--- NOTE | 2018-07-26 19:31 | NUR ---
HAND-OFF: Report given to Guille PRESTON RN.
[2018-07-26 20:00] VITALS: BP 93/50
--- NOTE | 2018-07-26 20:00 | NUR ---
NURSE NOTES: Patient received in bed, aox4, family at bedside. NAD. IV intact and patent. Noted with decreased BP, patient denies any symptoms, no dizizines, nausea or weakness at this time. Instructed to call for assistance prior to ambulating, verbalized understanding. Call light in reach, Will continue to monitor.
--- NOTE | 2018-07-26 20:45 | NUR ---
CASE MANAGEMENT: REVIEW 07/26/2018 SI:ETOH WITHDRAWAL. JAUNDICE. CIRRHOSIS. T 97.5 HR 64 RR 18 B/P 119/86 SATS 100% ON RA NO LABS TODAY IS: IVF @ 75 mL/HR PROTONIX PO QD LASIX IV QD MULTIVITAMINS IV @ 125 mL/HR THIAMINE IV Q24H MED/SURG STATUS DCP: TO BE ARRANGED
[2018-07-27] VITALS: BP 94/49
[2018-07-27] MEDS ORDERED: Thiamine 100mg tab ORAL SCH
[2018-07-27] MEDS ORDERED: Spironolactone 50mg tab ORAL SCH
[2018-07-27] MEDS ORDERED: Furosemide 40mg tab ORAL SCH
[2018-07-27 04:00] VITALS: BP 118/58
--- NOTE | 2018-07-27 06:06 | General Progress Note ---
Assessment/Plan Problem List: (1) Cirrhosis ICD Codes: K74.60 - Unspecified cirrhosis of liver SNOMED: 20117321 Qualifiers: Qualified Codes: K70.31 - Alcoholic cirrhosis of liver with ascites (2) Jaundice ICD Codes: R17 - Unspecified jaundice SNOMED: 09665160 (3) Liver failure ICD Codes: K72.90 - Hepatic failure, unspecified without coma SNOMED: 83460652 Qualifiers: Qualified Codes: K72.90 - Hepatic failure, unspecified without coma (4) Portal hypertension ICD Codes: K76.6 - Portal hypertension SNOMED: 48822244 (5) Abdominal pain ICD Codes: R10.9 - Unspecified abdominal pain SNOMED: 77097314 (6) Alcohol withdrawal ICD Codes: F10.239 - Alcohol dependence with withdrawal, unspecified SNOMED: 809723978 Qualifiers: Qualified Codes: F10.230 - Alcohol dependence with withdrawal, uncomplicated Status: stable Assessment/Plan follow up labs. diuretics if sodium ok. d/w dtr poor prognosis add lexapro dc planning Subjective ROS Limited/Unobtainable: No Constitutional: Reports: malaise, weakness HEENT: Reports: no symptoms Cardiovascular: Reports: no symptoms Respiratory: Reports: no symptoms Gastrointestinal/Abdominal: Reports: no symptoms Genitourinary: Reports: no symptoms Neurologic/Psychiatric: Reports: no symptoms Endocrine: Reports: no symptoms Hematologic/Lymphatic: Reports: no symptoms Allergies: Coded Allergies: No Known Allergies (Unverified , 07/22/18) All Systems: reviewed and negative except above Subjective no complaints. family concerned pt is depressed. no si/hi. +diarrhea- pn lactulose Objective Last 24 Hour Vital Signs Date Time Temp Pulse Resp B/P (MAP) Pulse Ox O2 Delivery O2 Flow Rate FiO2 07/27/18 04:00 97.7 72 19 118/58 (78) 99 07/27/18 00:00 98.4 79 19 94/49 (64) 95 07/26/18 21:00 Room Air 07/26/18 20:29 63 93/50 07/26/18 20:00 98.7 63 18 93/50 (64) 94 07/26/18 15:41 97.5 64 18 119/86 (97) 100 07/26/18 12:00 98.9 75 18 108/64 (79) 98 07/26/18 09:00 Room Air 07/26/18 09:00 86 100/58 07/26/18 08:00 97.4 86 19 100/58 (72) 96 Intake and Output 07/26/18 07/27/18 19:00 07:00 Intake Total 1506 ml 914.2 ml Balance 1506 ml 914.2 ml IV Total 906 ml 914.2 ml Other 600 ml Height (Feet): 5 Height (Inches): 7.00 Weight (Pounds): 177 Objective General Appearance: WD/WN Neck: supple Cardiovascular: regular rhythm Respiratory/Chest: lungs clear Abdomen: normal bowel sounds, non tender, soft, no organomegaly Edema: no edema noted Arm (L), no edema noted Arm (R), no edema noted Leg (L), no edema noted Leg (R), no edema noted Pedal (L), no edema noted Pedal (R), no edema noted Generalized 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
--- NOTE | 2018-07-27 07:28 | NUR ---
HAND-OFF: Report given to Edith DE LEON.
[2018-07-27 08:00] VITALS: BP 115/66
--- NOTE | 2018-07-27 08:02 | NUR ---
NURSE NOTES: Received pt from RN TABITHA. Pt is alert and orient x4. No SOB or acute respiratory distress noted. pt has intact iv access LFA 22g is running well. all needs attended, bed is locked and is in the lowest position. call light within easy reach. will continue to monitor.
[2018-07-27] MEDS: Spironolactone 50mg tab ORAL SCH (08:38)
[2018-07-27] MEDS: Lactulose 20gm/30ml UDC ORAL SCH ×3 (08:38→17:28)
[2018-07-27 09:25] LABS: AMMONIA 42 umol/L (11-32)
[2018-07-27 09:35] LABS: ALANINE AMINOTRANSFERASE 37 U/L (12-78); ALBUMIN 1.7 G/DL (3.4-5.0); ALBUMIN/GLOBULIN RATIO 0.4 (1.0-2.7); ALKALINE PHOSPHATASE 199 U/L (46-116); ANION GAP 7 mmol/L (5-15); ASPARTATE AMINO TRANSFERASE 90 U/L (15-37); BILIRUBIN,TOTAL 6.6 MG/DL (0.2-1.0); BLOOD UREA NITROGEN 14 mg/dL (7-18); CALCIUM 7.8 MG/DL (8.5-10.1); CARBON DIOXIDE 24 MMOL/L (21-32); CHLORIDE 105 MMOL/L (98-107); POTASSIUM 3.1 MMOL/L (3.5-5.1); SODIUM 136 MMOL/L (136-145)
[2018-07-27 09:38] LABS: BILIRUBIN,DIRECT 5.1 MG/DL (0.0-0.3)
--- NOTE | 2018-07-27 10:27 | NUR ---
NURSE NOTES: called Dr RUCKER regarding k level and drainage from paracentesis site, left massage, waiting to call back. will continue to monitor.
[2018-07-27 12:00] VITALS: BP 110/61
--- NOTE | 2018-07-27 14:29 | Surgery Progress Note ---
Surgery Progress Note Subjective Additional Comments no acute events. doing well. comfortable. Objective Last 24 Hour Vital Signs Date Time Temp Pulse Resp B/P (MAP) Pulse Ox O2 Delivery O2 Flow Rate FiO2 07/27/18 09:00 Room Air 07/27/18 08:38 84 115/66 07/27/18 08:00 98.1 84 20 115/66 (82) 98 07/27/18 04:00 97.7 72 19 118/58 (78) 99 07/27/18 00:00 98.4 79 19 94/49 (64) 95 07/26/18 21:00 Room Air 07/26/18 20:29 63 93/50 07/26/18 20:00 98.7 63 18 93/50 (64) 94 07/26/18 15:41 97.5 64 18 119/86 (97) 100 I&O Intake and Output 07/26/18 07/27/18 19:00 07:00 Intake Total 1506 ml 1289.2 ml Balance 1506 ml 1289.2 ml Intake Oral 150 ml IV Total 906 ml 1139.2 ml Other 600 ml # Voids 2 # Bowel Movements 1 Cardiovascular: RSR Respiratory: clear Abdomen: soft, flat, tenderness - minimal LUQ, non-distended Extremities: other Laboratory Tests Test 07/27/18 08:53 Sodium Level 136 MMOL/L (136-145) Potassium Level 3.1 MMOL/L (3.5-5.1) L Chloride Level 105 MMOL/L (98-107) Carbon Dioxide Level 24 MMOL/L (21-32) Anion Gap 7 mmol/L (5-15) Blood Urea Nitrogen 14 mg/dL (7-18) Creatinine 1.0 MG/DL (0.55-1.30) Estimat Glomerular Filtration Rate > 60 mL/min (>60) Glucose Level 131 MG/DL (74-106) H Calcium Level 7.8 MG/DL (8.5-10.1) L Total Bilirubin 6.6 MG/DL (0.2-1.0) H Direct Bilirubin 5.1 MG/DL (0.0-0.3) H Aspartate Amino Transf (AST/SGOT) 90 U/L (15-37) H Alanine Aminotransferase (ALT/SGPT) 37 U/L (12-78) Alkaline Phosphatase 199 U/L (46-116) H Ammonia 42 umol/L (11-32) H Total Protein 6.2 G/DL (6.4-8.2) L Albumin 1.7 G/DL (3.4-5.0) L Globulin 4.5 g/dL Albumin/Globulin Ratio 0.4 (1.0-2.7) L Plan Problems: (1) Abdominal pain Assessment & Plan: abdominal pain likely secondary to enlarged spleen CT noted. no acute surgical intervention planned medical management of decompensated cirrhosis fluid restriction s/p paracentesis. prognosis poor trend labs pain improving spoke with daughter at bedside. s he understands his condition okay to d/c from surgical standpoint thank you Zoran Monsivais Jul 27, 2018 14:29
[2018-07-27 16:00] VITALS: BP 103/57
--- NOTE | 2018-07-27 16:53 | NUR ---
NURSE NOTES: AGAIN CALLED DR. RUCKER REGARDING K LEVEL AND DRAINAGE FROM PARACENTESIS SITE, LEFT MASSAGE, WAITING TO CALL BACK. WILL CONTINUE TO MONITOR.
--- NOTE | 2018-07-27 17:00 | NUR ---
NURSE NOTES: Dr jewell called back and ordered to KCL 40MEQ PO ONCE and COVER THE SITE OF PARACENTESIS WITH PAD. NOTED AND CARRIED OUT. WILL CONTINUE TO MONITOR.
--- NOTE | 2018-07-27 17:09 | NUR ---
Social Work Kathy in Intake, [facility] has accepted patient to the following location: [address] [facility], [place] phone: [phone]. Patient informed by this SW with Chiquis, Case Management [place]ian Interpretation and in agreement with discharge to this location (signed consent form by patient in front of chart). Nursing to arrange cab to this location upon discharge. This left a message for daughter, Castillo Prince ([phone]) regarding discharge, location and contact number (informed daughter patient does not qualify for care home placement due to no insurance). Patient remains alert/oriented x4, making his own decisions and showing independence with ADLS, ambulation. This Sw also sent referral for long term care administrator homelessness/substance abuse ([facility]). Spoke with Arias ([phone]), intake who explains they will not have any openings until next week; Arias to follow up with patient at [facility].
[2018-07-27] MEDS: Thiamine 100mg in D5W 55ml IVPB SCH (17:38)
[2018-07-27] MEDS ORDERED: SPIRONOLACTONE50 MG ORAL (18:08)
[2018-07-27] MEDS ORDERED: FUROSEMIDE40 MG ORAL (18:08)
[2018-07-27] MEDS ORDERED: PROTONIX40 MG ORAL (18:09)
[2018-07-27] MEDS ORDERED: LABETALOL H5 MG/1 M1 PO (18:09)
[2018-07-27] MEDS ORDERED: FOLIC ACID1 MG ORAL (18:10)
[2018-07-27] MEDS ORDERED: VITAMIN B-1100 MG ORAL (18:10)
[2018-07-27] MEDS ORDERED: LABETALOL HCL100 MG ORAL (18:13)
--- NOTE | 2018-07-27 19:11 | NUR ---
NURSE NOTES: Received D/C order. pt is stable. V/S stable. all discharge assessments and instructions done and pt and his daughter CARMELINA verbally confirmed to understand all. pt has prescription and all meds received from pharmacy and given to pt and instructed them one by one and pt and his daughter CARMELINA verbally confirmed to understand all. pt has Pam[place] about labetalol. paracentesis site covered with pad as order. pt is aware about fluid restrictions 1lit/24hours. all belongings are with pt. called taxi to pick pt up. waiting for taxi. will continue to monitor.
--- NOTE | 2018-07-27 19:54 | NUR ---
HAND-OFF: Report given to MOISES LU. Pt signed homeless discharge checklist.
--- NOTE | 2018-07-27 20:10 | NUR ---
NURSE NOTES: Patient discharged to the address of rec care, per SW notes, via taxi. Accompanied to taxi via wheelchair, all belongings with patient, patient with family. IV and ID band removed. Taxi voucher given to certified driver examiner. Remained stable and free from injury.
--- NOTE | 2018-07-30 07:53 | Discharge Summary ---
Discharge Summary Discharge Summary _ DATE OF ADMISSION: 07/22/2018 DATE OF DISCHARGE: 07/27/2018 DISCHARGED BY: Dr. Castro REASON FOR ADMISSION: 48 years old male with past medical history of cirrhosis, alcohol abuse, abuse, status post cholecystectomy, presented with alcohol intoxication and complaints of abdominal pain. Upon evaluation patient was jaundiced. Total bilirubin 10.1, direct bilirubin 7.7. AST 152, ALT 59. Sodium 126. Albumin 2.4. Serum alcohol level 231. Platelet count 136. CT of the abdomen pelvis revealed evidence of cirrhosis with moderate amount of ascites. Splenomegaly with paraesophageal varices suggestive of portal hypertension. Patient admitted to Med Surg floor for further management. CONSULTANTS: Surgery Dr. Monsivais [facility]: Patient admitted and started on IV fludis with multivitamins, thiamine and folic acid. Ativan was on board as needed for withdrawal symptoms or seizures. Therapeutic paracentesis was done the same day which yielded 5.7 L of fluid. Follow-up ultrasound revealed complete resolution of peritoneal fluid. Culture of ascitic fluid was negative. Pathology of ascitic fluid was negative for malignant cells. Patient was started on PPI. Surgery consult was requested due to complaints of abdominal pain. No acute surgical intervention was necessary at this time. Surgeon recommended medical management of decompensated cirrhosis. Patient started on diuresis with close monitoring of volumes , electrolytes and renal parameters. Sodium normalized 136 on the day of discharge. Potassium replaced. Bilirubin and LFTs were closely monitored, showed small trend down. Beta-manjula provided for management of portal hypertension. Venous duplex bilateral lower extremity revealed no evidence of DVT. Supportive care provided. Pain management was addressed. Patient was able to tolerate diet. Patient was counseled on abstinence from ETOH. Placement was found at recuperative care. Patient was stable for discharge FINAL DIAGNOSES: Decompensated liver failure secondary to persistent alcohol use Cirrhosis Ascites , s/p paracentesis Hyponatremia-resolved Portal hypertension Alcohol withdrawal DISCHARGE MEDICATIONS: See Medication Reconciliation list. DISCHARGE INSTRUCTIONS: Patient was discharged to recuperative care. Patient was counseled on abstinence from ETOH. I have been assigned to dictate discharge summary for this account. I was not involved in the patient's management Ophelia Wang NP Jul 30, 2018 07:53
--- NOTE | 2018-07-30 21:54 | Diagnostic Imaging Report ---
APPROVED REPORT CPT Code: 75217 Present Symptoms Lower Extremity Pain: Bilateral Lower Extremity Edema: Bilateral BILATERAL: Imaging reveals a patent deep venous system bilaterally. There is no evidence of thrombus within the common femoral, superficial femoral, popliteal or tibial segments. The greater saphenous veins are also within normal limits. Doppler indicates normal spontaneous flow within these segments.
== END 2018-07-27 20:14 | DRG 433 ==
LOC: EDBD 09:22 → EMR 10:33 → 4E 11:13 → EDBEDREQ 12:12 → 4E 07-23 01:05
PROC: 0W9G3ZZ Drainage of Peritoneal Cavity, Percutaneous Approach (ICD-10-PCS; principal; 2018-07-22)
DX: K70.31 Alcoholic cirrhosis of liver with ascites (principal); F10.239 Alcohol dependence with withdrawal, unspecified; E87.1 Hypo-osmolality and hyponatremia; K76.6 Portal hypertension; Z90.49 Acquired absence of other specified parts of digestive tract; Z59.0 Homelessness
CPT/HCPCS: 36415; 74177; 76942; 80048; 80053; 80329; 82140; 82248; 83690; 85007; 85025; 85610; 85730; 87070; 87081; 87205; 88104; 89051; 93970; 96361; 96374; 96375; 99285; J8499

== ENCOUNTER 2018-08-09 22:17 | Emergency (ER) | payer SELFPAY ==
[~2018-08-09] VITALS: Ht 177.8 cm; Wt 95.3 kg
[~2018-08-09 22:17] MED LIST: FOLIC ACID1 MG ORAL; FUROSEMIDE40 MG ORAL; LABETALOL H5 MG/1 M1 PO; LABETALOL HCL100 MG ORAL; PROTONIX40 MG ORAL; SPIRONOLACTONE50 MG ORAL; VITAMIN B-1100 MG ORAL
[2018-08-09 22:20] VITALS: BP 100/63
--- NOTE | 2018-08-09 22:20 | NUR ---
ED Nurse Note: Patient biba from a senior care c/o abdominal pain for 1 hour, patient rates his pain a 10/10 pain. patient is alert and oriented x4
[2018-08-09] MEDS ORDERED: Morphine Sulfate 2mg/ml Inj(IV/IM USE ONLY) IM ONE (22:45)
[2018-08-09] MEDS ORDERED: OXYCODONE HCL5 M2 ORAL (23:06)
--- NOTE | 2018-08-09 23:06 | Emergency Room Report ---
History of Present Illness General Chief Complaint: Abdominal Pain Source: Patient Present Illness HPI This is a 48-year-old male with a history of decompensated cirrhosis secondary to alcohol abuse. He was admitted here 3 weeks ago in had workup done. He had paracentesis. Negative for neoplastic process. He said he stopped drinking since then. He presents with chief complaint abdominal pain. Increasing distention. Pain is chronic in nature. Was in the last couple days. No fever chills but no nausea no vomiting. Pain is 7 out of 10. He said he did not receive any pain medication. Just got medical insurance and has not follow-up with any doctor yet. No fever or chills. No drainage. Allergies: Coded Allergies: No Known Allergies (Unverified , 07/22/18) Patient History Past Medical History: see triage record, old chart reviewed Past Surgical History: other Pertinent Family History: none Social History: Reports: alcohol use Immunizations: other Reviewed Nursing Documentation: PMH: Agreed; PSxH: Agreed Nursing Documentation-PMH Past Medical History: No Stated History Hx Gastrointestinal Problems: Yes Hx Neurological Problems: No Hx Cerebrovascular Accident: No Hx Transient Ischemic Attacks: No Hx Dementia: No Hx Alzheimer's Disease: No Hx Parkinson's Disease: No Hx Meningitis: No Hx Encephalitis: No Hx Seizures: No Hx Epilepsy: No Hx Multiple Sclerosis: No Hx Cerebral Palsy: No Hx Amyotrophic Lat Sclerosis: No Hx Guillian-[place] Syndrome: No Hx Paralysis: No Hx Peripheral Neuropathy: No Hx Spinal Cord Injury: No Hx Head Trauma: No Hx Traumatic Brain Injury: No Hx Memory Loss: No Hx Concentration Difficulty: No Hx Tremors: No Hx Vertigo: No Hx Headaches: No Hx Aphasia: No Hx Dysphasia: No Hx Weakness: Yes Hx Fatigue: Yes Review of Systems Eye: Denies: eye pain, blurred vision ENT: Denies: ear pain, nose congestion, throat swelling Respiratory: Denies: cough, shortness of breath Cardiovascular: Denies: chest pain, palpitations Gastrointestinal: Reports: abdominal pain; Denies: diarrhea, nausea, vomiting Musculoskeletal: Denies: back pain, joint pain Skin: Denies: rash Neurological: Denies: headache, numbness Endocrine: Denies: increased thirst, increased urine Hematologic/Lymphatic: Denies: easy bruising All Other Systems: negative except mentioned in HPI Physical Exam Vital Signs Date Time Temp Pulse Resp B/P (MAP) Pulse Ox O2 Delivery O2 Flow Rate FiO2 08/09/18 22:16 98.2 71 16 100/63 94 Room Air vitals normal Sp02 EP Interpretation: reviewed, normal General Appearance: well appearing, no apparent distress, alert Head: normocephalic, atraumatic Eyes: bilateral eye PERRL, bilateral eye EOMI, bilateral eye scleral icterus, bilateral eye other ENT: hearing grossly normal, normal pharynx Neck: full range of motion, supple, no meningismus Respiratory: chest non-tender, lungs clear, normal breath sounds Cardiovascular #1: regular rate, rhythm, no murmur Gastrointestinal: normal bowel sounds, no mass, no organomegaly, no bruit, non- distended, tenderness - mild, ascites; soft Musculoskeletal: back normal, gait/station normal, normal range of motion Neurologic: alert, oriented x3 Psychiatric: mood/affect normal Skin: warm/dry, jaundice Medical Decision Making Diagnostic Impression: Primary Impression: Abdominal pain Qualified Codes: R10.84 - Generalized abdominal pain Additional Impression: Cirrhosis of liver with ascites Qualified Codes: K70.31 - Alcoholic cirrhosis of liver with ascites ER Course Patient with exacerbation of chronic abdominal pain with cirrhosis and ascites. He has no fever to indicate that he has spontaneous bacterial peritonitis. Abdominal exam is soft. No distention. I see no need for paracentesis at this moment in time. Discussed the case with patient and his daughters regarding follow-up with liver specialist and possible transplant. We'll discharge home. Last Vital Signs Date Time Temp Pulse Resp B/P (MAP) Pulse Ox O2 Delivery O2 Flow Rate FiO2 08/09/18 22:16 98.2 71 16 100/63 94 Room Air Status: improved Disposition: HOME, SELF-CARE Condition: Stable Scripts Oxycodone Hcl* (OXYCODONE HCL*) 5 Mg Capsule 5 MG ORAL Q6H PRN for For Pain, #30 CAP 0 Refills Prov: Kye Mistry MD 08/09/18 Additional Instructions: Follow-up with [facility] or [facility] within a week. You will need a referral to the liver specialist. Return if symptom worsen. Kye Mistry MD Aug 09, 2018 23:06
[2018-08-10] VITALS: BP 115/67
--- NOTE | 2018-08-10 | NUR ---
ER DISCHARGE NOTE: Patient is cleared to be discharged per ERMD, pt is aox4, on room air, with stable vital signs. pt was given dc and prescription instructions, pt was able to verbalize understanding, pt id band removed pt is able to ambulate with steady gait. pt took all belongings. Patient was given taxi voucher as a method of transportation, daughter states that he is unable to be given a ride home unless its a taxi voucher
[2018-08-11] MEDS ORDERED: PROTONIX40 MG ORAL (17:55)
[2018-08-11] MEDS ORDERED: SPIRONOLACTONE50 MG ORAL (17:55)
== END 2018-08-10 | disposition home or self-care (01) ==
LOC: EDBD 22:17 → EMR 22:50
DX: K70.31 Alcoholic cirrhosis of liver with ascites (principal); R10.84 Generalized abdominal pain
CPT/HCPCS: 99283; J2270

== ENCOUNTER 2018-09-02 16:52 | Emergency (ER) | payer SELFPAY ==
[~2018-09-02] VITALS: Ht 180.3 cm; Wt 86.2 kg
[~2018-09-02 16:52] MED LIST changes: +OXYCODONE HCL5 M2 ORAL
[2018-09-02 16:53] VITALS: BP 116/90
--- NOTE | 2018-09-02 17:00 | NUR ---
ED Nurse Note: Patient biba from group home c/o bilateral leg swelling as well as a distended adbdomen for 3 days. patient was just here last month for the same reasons. at time of arrival patient does not present with an edema however patients abdomen is distended.
--- NOTE | 2018-09-02 17:11 | Emergency Room Report ---
History of Present Illness General Chief Complaint: Edema Source: Patient, EMS Present Illness HPI Patient present with complaints of swelling to his legs and increased discomfort from the pressure Reports that he was at [facility] 2 weeks ago He takes diuretics however has not been taking them over the past few days Denies any chest pain or shortness of breath denies any back or flank pain Patient reports increased difficulty ambulating given the swelling Patient has had fairly extensive workup with inpatient hospitalization last month revealing liver cirrhosis and ascites Allergies: Coded Allergies: No Known Allergies (Unverified , 07/22/18) Patient History Past Medical History: see triage record Pertinent Family History: none Reviewed Nursing Documentation: PMH: Agreed; PSxH: Agreed Nursing Documentation-PMH Hx Cardiac Problems: Yes Hx Gastrointestinal Problems: Yes Hx Neurological Problems: No Hx Cerebrovascular Accident: No Hx Transient Ischemic Attacks: No Hx Dementia: No Hx Alzheimer's Disease: No Hx Parkinson's Disease: No Hx Meningitis: No Hx Encephalitis: No Hx Seizures: No Hx Epilepsy: No Hx Multiple Sclerosis: No Hx Cerebral Palsy: No Hx Amyotrophic Lat Sclerosis: No Hx Guillian-[place] Syndrome: No Hx Paralysis: No Hx Peripheral Neuropathy: No Hx Spinal Cord Injury: No Hx Head Trauma: No Hx Traumatic Brain Injury: No Hx Memory Loss: No Hx Concentration Difficulty: No Hx Tremors: No Hx Vertigo: No Hx Headaches: No Hx Aphasia: No Hx Dysphasia: No Hx Weakness: Yes Hx Fatigue: Yes Review of Systems All Other Systems: negative except mentioned in HPI Physical Exam Vital Signs Date Time Temp Pulse Resp B/P (MAP) Pulse Ox O2 Delivery O2 Flow Rate FiO2 09/02/18 16:46 98.2 101 16 116/90 99 Room Air Sp02 EP Interpretation: reviewed, normal General Appearance: no apparent distress Eyes: bilateral eye PERRL, bilateral eye EOMI ENT: normal pharynx Neck: supple, thyroid normal Respiratory: lungs clear, no retraction, no accessory muscle use Cardiovascular #1: regular rate, rhythm Gastrointestinal: other - Distended abdomen with ascites and hepatomegaly Musculoskeletal: other - Edema involving bilateral lower extremity Neurologic: alert, oriented x3, responsive Skin: other - As noted above Lymphatic: no adenopathy Medical Decision Making Diagnostic Impression: Primary Impression: Edema Additional Impression: Cirrhosis ER Course With the history exam and presentation, multiple differentials considered, including but not limited to appendicitis, gastritis, cholecystitis, diverticulitis Given the patient's history consideration for worsening ascites as well Patient requires further diuretic input Also requires appropriate outpatient follow-up Does not meet any criteria for further emergency evaluation further Last Vital Signs Date Time Temp Pulse Resp B/P (MAP) Pulse Ox O2 Delivery O2 Flow Rate FiO2 09/02/18 16:46 98.2 101 16 116/90 99 Room Air Status: unchanged Disposition: HOME, SELF-CARE Condition: Improved Additional Instructions: Patient is provided with the discharge instructions notified to follow up with primary doctor in the next 2-3 days otherwise return to the er with any worsening symptoms. Please note that this report is being documented using Synchro technology. This can lead to erroneous entry secondary to incorrect interpretation by the dictating instrument. Lonnie Orellana DO Sep 02, 2018 17:11
[2018-09-02 19:10] VITALS: BP 129/85
--- NOTE | 2018-09-02 19:30 | NUR ---
ER DISCHARGE NOTE: Patient is cleared to be discharged per ERMD, pt is aox4, on room air, with stable vital signs. pt was given dc and prescription instructions, pt was able to verbalize understanding, pt id band removed without complications. pt is able to ambulate with steady gait. pt took all belongings.
== END 2018-09-02 19:30 | disposition home or self-care (01) ==
LOC: EDBD 16:52 → EMR 17:25
DX: R60.0 Localized edema (principal); K74.60 Unspecified cirrhosis of liver
CPT/HCPCS: 99282

== ENCOUNTER 2018-09-05 16:44 | Inpatient (IN) | payer MEDICAID ==
[~2018-09-05] VITALS: Ht 162.6 cm; Wt 90.7 kg
--- NOTE | 2018-09-05 17:15 | Emergency Room Report ---
History of Present Illness General Chief Complaint: Abdominal Pain Source: Patient Present Illness HPI 48-year-old male presents ED for evaluation. Patient complaining of abdominal pain and distention for the last 9 days. Pain is sharp, 10 out of 10, nonradiating. States he has history of cirrhosis. States his last paracentesis was in July here at [facility]. Denies fevers or chills. Denies chest pain or shortness of breath. No other aggravating relieving factors. Denies any other associated symptoms Allergies: Coded Allergies: No Known Allergies (Unverified , 07/22/18) Patient History Past Medical History: HTN, other - cirrhosis Past Surgical History: none Pertinent Family History: none Social History: Reports: alcohol use; Denies: smoking, drug use Immunizations: UTD Reviewed Nursing Documentation: PMH: Agreed; PSxH: Agreed Nursing Documentation-PMH Past Medical History: No History, Except For Hx Cardiac Problems: Yes Hx Gastrointestinal Problems: Yes - cirrhosis Hx Neurological Problems: No Hx Cerebrovascular Accident: No Hx Transient Ischemic Attacks: No Hx Dementia: No Hx Alzheimer's Disease: No Hx Parkinson's Disease: No Hx Meningitis: No Hx Encephalitis: No Hx Seizures: No Hx Epilepsy: No Hx Multiple Sclerosis: No Hx Cerebral Palsy: No Hx Amyotrophic Lat Sclerosis: No Hx Guillian-Davidson Syndrome: No Hx Paralysis: No Hx Peripheral Neuropathy: No Hx Spinal Cord Injury: No Hx Head Trauma: No Hx Traumatic Brain Injury: No Hx Memory Loss: No Hx Concentration Difficulty: No Hx Tremors: No Hx Vertigo: No Hx Headaches: No Hx Aphasia: No Hx Dysphasia: No Hx Weakness: Yes Hx Fatigue: Yes Review of Systems All Other Systems: negative except mentioned in HPI Physical Exam Vital Signs Date Time Temp Pulse Resp B/P (MAP) Pulse Ox O2 Delivery O2 Flow Rate FiO2 09/05/18 16:54 98.1 117 28 150/94 98 Room Air Sp02 EP Interpretation: reviewed, normal General Appearance: no apparent distress, alert, GCS 15, non-toxic Head: normocephalic, atraumatic Eyes: bilateral eye normal inspection, bilateral eye PERRL ENT: hearing grossly normal, normal pharynx, no angioedema, normal voice Neck: full range of motion, supple/symm/no masses Respiratory: chest non-tender, lungs clear, normal breath sounds, speaking full sentences Cardiovascular #1: regular rate, rhythm, no edema Cardiovascular #2: 2+ carotid (R), 2+ carotid (L), 2+ radial (R), 2+ radial (L) , 2+ dorsalis pedis (R), 2+ dorsalis pedis (L) Gastrointestinal: normal bowel sounds, no guarding, no rebound, tenderness Rectal: deferred Genitourinary: normal inspection, no CVA tenderness Musculoskeletal: back normal, gait/station normal, normal range of motion, non- tender Neurologic: alert, oriented x3, responsive, motor strength/tone normal, sensory intact, speech normal Psychiatric: judgement/insight normal, memory normal, mood/affect normal, no suicidal/homicidal ideation Reflexes: 3+ bicep (R), 3+ bicep (L), 3+ tricep (R), 3+ tricep (L), 3+ knee (R) , 3+ knee (L) Skin: normal color, no rash, warm/dry, well hydrated Lymphatic: no adenopathy Medical Decision Making Diagnostic Impression: Primary Impression: Cirrhosis Qualified Codes: K74.60 - Unspecified cirrhosis of liver; R18.8 - Other ascites Additional Impression: Abdominal pain Qualified Codes: R10.84 - Generalized abdominal pain ER Course Hospital Course 48-year-old male presents ED for evaluation of abdominal pain and distention. History of cirrhosis Differential diagnoses include: Cirrhosis, ascites, SBP Clinical course Patient placed on stretcher. night monitor. After initial history and physical I ordered labs, IV fluids, Labs - no leukocytosis, Hb/Hct stable, coags ok, K 3.0, LFTs elevated Patient afebrile, nontoxic appearing. No suspicion for SBP. Potassium repleted. No emergent indication for paracentesis in ER. Can be done by radiology Case discussed with Dr. Byrd and he agreed to accept the patient to his service for further care and support I feel this is a highly complex case requiring extensive working including EKG/ Rhythm strip, Xray/CT/US, Blood/urine lab work, repeat exams while in ED, and administration of strong opiates/narcotics for pain control, admission to hospital or close patient follow up. Diagnosis - cirrhosis, abdominal pain Patient admitted to floor in serious condition Labs Test 09/05/18 17:45 09/05/18 20:20 White Blood Count 9.2 K/UL (4.8-10.8) Red Blood Count 3.32 M/UL (4.70-6.10) Hemoglobin 11.6 G/DL (14.2-18.0) Hematocrit 34.1 % (42.0-52.0) Mean Corpuscular Volume 103 FL (80-99) Mean Corpuscular Hemoglobin 35.1 PG (27.0-31.0) Mean Corpuscular Hemoglobin Concent 34.1 G/DL (32.0-36.0) Red Cell Distribution Width 11.8 % (11.6-14.8) Platelet Count 196 K/UL (150-450) Mean Platelet Volume 4.8 FL (6.5-10.1) Neutrophils (%) (Auto) 50.2 % (45.0-75.0) Lymphocytes (%) (Auto) 25.3 % (20.0-45.0) Monocytes (%) (Auto) 17.0 % (1.0-10.0) Eosinophils (%) (Auto) 6.1 % (0.0-3.0) Basophils (%) (Auto) 1.5 % (0.0-2.0) Prothrombin Time 14.1 SEC (9.30-11.50) Prothromb Time International Ratio 1.4 (0.9-1.1) Activated Partial Thromboplast Time 30 SEC (23-33) Sodium Level 140 MMOL/L (136-145) Potassium Level 3.0 MMOL/L (3.5-5.1) Chloride Level 104 MMOL/L (98-107) Carbon Dioxide Level 28 MMOL/L (21-32) Anion Gap 9 mmol/L (5-15) Blood Urea Nitrogen 13 mg/dL (7-18) Creatinine 0.9 MG/DL (0.55-1.30) Estimat Glomerular Filtration Rate > 60 mL/min (>60) Glucose Level 94 MG/DL (74-106) Calcium Level 8.5 MG/DL (8.5-10.1) Total Bilirubin 2.4 MG/DL (0.2-1.0) Direct Bilirubin 1.6 MG/DL (0.0-0.3) Aspartate Amino Transf (AST/SGOT) 40 U/L (15-37) Alanine Aminotransferase (ALT/SGPT) 26 U/L (12-78) Alkaline Phosphatase 174 U/L (46-116) Total Protein 7.4 G/DL (6.4-8.2) Albumin 2.0 G/DL (3.4-5.0) Globulin 5.4 g/dL Albumin/Globulin Ratio 0.4 (1.0-2.7) Lipase 231 U/L (73-393) Urine Color Lizzeth Urine Appearance Slightly cloudy Urine pH 6 (4.5-8.0) Urine Specific [place] 1.020 (1.005-1.035) Urine Protein 1+ (NEGATIVE) Urine Glucose (UA) Negative (NEGATIVE) Urine Ketones Negative (NEGATIVE) Urine Blood 1+ (NEGATIVE) Urine Nitrite Negative (NEGATIVE) Urine Bilirubin 2+ (NEGATIVE) Urine Ictotest Positive (NEGATIVE) Urine Urobilinogen 12 MG/DL (0.0-1.0) Urine Leukocyte Esterase 1+ (NEGATIVE) Urine RBC 2-4 /HPF (0 - 0) Urine WBC 2-4 /HPF (0 - 0) Urine Squamous Epithelial Cells Moderate /LPF (NONE/OCC) Urine Bacteria Few /HPF (NONE) Urine Mucus Moderate /LPF (NONE/OCC) Last Vital Signs Date Time Temp Pulse Resp B/P (MAP) Pulse Ox O2 Delivery O2 Flow Rate FiO2 09/05/18 16:54 98.1 117 28 150/94 98 Room Air Status: improved Disposition: ADMITTED INPATIENT Condition: Serious Yobani Fountain MD Sep 05, 2018 17:15
--- NOTE | 2018-09-05 17:16 | NUR ---
ED Nurse Note: Pt arrived to ED c/o Abd pain. Pt states having Hx of cirrhosis. Pt has a distended abd. Pt is AAOx 4respirations ar eeven aand unlabored. Pt is able to ambualte with stady gait w/ assistance of walker.
[2018-09-05 18:01] LABS: BASOPHILS % (AUTO) 1.5 % (0.0-2.0); EOSINOPHILS % (AUTO) 6.1 % (0.0-3.0); HEMATOCRIT 34.1 % (42.0-52.0); HEMOGLOBIN 11.6 G/DL (14.2-18.0); LYMPHOCYTES % (AUTO) 25.3 % (20.0-45.0); MEAN CORPUSCULAR VOLUME 103 FL (80-99); NEUTROPHILS % (AUTO) 50.2 % (45.0-75.0); PLATELET COUNT 196 K/UL (150-450); RED BLOOD COUNT 3.32 M/UL (4.70-6.10); RED CELL DISTRIBUTION WIDTH 11.8 % (11.6-14.8); WHITE BLOOD COUNT 9.2 K/UL (4.8-10.8)
[2018-09-05 18:08] LABS: INR 1.4 (0.9-1.1)
[2018-09-05 18:19] LABS: ANION GAP 9 mmol/L (5-15); BLOOD UREA NITROGEN 13 mg/dL (7-18); CALCIUM 8.5 MG/DL (8.5-10.1); CARBON DIOXIDE 28 MMOL/L (21-32); CHLORIDE 104 MMOL/L (98-107); CREATININE 0.9 MG/DL (0.55-1.30); SODIUM 140 MMOL/L (136-145)
[2018-09-05 18:33] LABS: ALANINE AMINOTRANSFERASE 26 U/L (12-78); ALBUMIN/GLOBULIN RATIO 0.4 (1.0-2.7); ALKALINE PHOSPHATASE 174 U/L (46-116); ASPARTATE AMINO TRANSFERASE 40 U/L (15-37); BILIRUBIN,TOTAL 2.4 MG/DL (0.2-1.0)
[2018-09-05 18:43] LABS: BILIRUBIN,DIRECT 1.6 MG/DL (0.0-0.3)
--- NOTE | 2018-09-05 19:09 | NUR ---
HAND-OFF: Report given to piter COON.
[2018-09-05] MEDS ORDERED: NS w/KCl 40mEq 1,000 ML IV SCH (19:15)
--- NOTE | 2018-09-05 19:46 | NUR ---
ED Nurse Note: Urine collected; sent down to lab.
[2018-09-05 20:03] VITALS: BP 137/99
--- NOTE | 2018-09-05 20:35 | NUR ---
NURSE NOTES: Received a report from David Ornelas. Waiting for pt's arrival.
--- NOTE | 2018-09-05 20:38 | NUR ---
ED Nurse Note: Report given to MOISES Mcdonald. Patient to be admitted to Med Surg 420-2 under the care of MD Rochelle.
[2018-09-05 20:44] LABS: APPEARANCE,URINE SLIGHTLY CLOUDY; BILIRUBIN, URINE 2+ (NEGATIVE); GLUCOSE, URINE (UA) NEGATIVE (NEGATIVE); KETONES,URINE NEGATIVE (NEGATIVE); LEUKOCYTE ESTERASE ,URINE 1+ (NEGATIVE); NITRITE,URINE NEGATIVE (NEGATIVE); PH,URINE 6 (4.5-8.0); PROTEIN,URINE 1+ (NEGATIVE); UROBILINOGEN,URINE 12 MG/DL (0.0-1.0)
--- NOTE | 2018-09-05 20:45 | NUR ---
TRANSFER TO FLOOR: Patient transfered to Med Surg with 420-2 with [facility].
[2018-09-05 20:53] LABS: COLOR,URINE AMBER
--- NOTE | 2018-09-05 21:00 | NUR ---
NURSE NOTES: Pt has arrived in the unit. AAOX4. Grenadian speaker but can understand Spanish. Daughter and at the bedside. IV site is patent and intact. Skin is intact. Abdominal distension. C/O ABD pain, rated 9/10. Will give pain med later. Swollen scrotum, retracted penis. Lower extremities are also swollen. Belongings checked and with the pt. Bed in lowest position. Call light within reach. Will continue to monitor.
--- NOTE | 2018-09-05 21:05 | History & Physical ---
History and Physical History & Physicial History and Physical HPI 48-year-old male with history of Cirrhosis, ascites, Hypertension. Patient complaining of abdominal pain and distention for the last 9 days. Pain is sharp , 10 out of 10, nonradiating. States he has history of cirrhosis. States his last paracentesis was [place] [facility] Denies fevers or chills. Denies chest pain or shortness of breath. No other aggravating relieving factors. Denies any other associated symptoms Allergies: No Known Allergies Past Medical History: Hypertension, other - cirrhosis All Other Systems: negative except mentioned in HPI Physical Exam Vital Signs Noted Date Time Temp Pulse Resp B/P (MAP) Pulse Ox O2 Delivery O2 Flow Rate FiO2 09/05/18 16:54 98.1 117 28 150/94 98 Room Air General Appearance: no apparent distress, alert, GCS 15, non-toxic Head: normocephalic, atraumatic Eyes: bilateral eye normal inspection, bilateral eye PERRL ENT: hearing grossly normal, normal pharynx, no angioedema, normal voice Neck: full range of motion, supple/symm/no masses Respiratory: chest non-tender, lungs clear, normal breath sounds, speaking full sentences Cardiovascular: HS1, HS2, RRR, Regular rate, rhythm, no edema Gastrointestinal: normal bowel sounds, no guarding, no rebound, tenderness Genitourinary: normal inspection, no CVA tenderness Musculoskeletal: back normal, gait/station normal, normal range of motion, non- tender Neurologic: alert, oriented x3, responsive, motor strength/tone normal, sensory intact, speech normal Psychiatric: judgement/insight normal, memory normal, mood/affect normal, no suicidal/homicidal ideation Reflexes: intact Skin: normal color, no rash, warm/dry, well hydrated, mild edema LE Lymphatic: no adenopathy Impression: Cirrhosis Ascites R/o SBP H/o Hypertension Plan Lasix PRN Supplement K [employer] Meds Ceftriaxone 1 G daily US Paracentesis LE Dupplex r/o DVT Nitish Rosado MD Sep 05, 2018 21:04
[2018-09-05] MEDS ORDERED: Acetaminophen 500mg (ES) tab ORAL PRN (21:15)
[2018-09-05] MEDS ORDERED: oxyCODONE 5mg IR tab ORAL PRN (21:30)
[2018-09-05] MEDS: cefTRIAXone 1 GM in D5W 55 ML IVPB SCH (22:13)
[2018-09-05 23:54] VITALS: BP 124/80
[2018-09-06 04:00] VITALS: BP 111/70
--- NOTE | 2018-09-06 06:57 | NUR ---
HAND-OFF: Report given to Ankit Velazquez RN.
[2018-09-06 06:58] LABS: INR 1.5 (0.9-1.1)
[2018-09-06 07:13] LABS: ANION GAP 7 mmol/L (5-15); BLOOD UREA NITROGEN 12 mg/dL (7-18); CARBON DIOXIDE 27 MMOL/L (21-32); CHLORIDE 107 MMOL/L (98-107); CREATININE 0.7 MG/DL (0.55-1.30); POTASSIUM 3.5 MMOL/L (3.5-5.1); SODIUM 141 MMOL/L (136-145)
[2018-09-06 07:25] LABS: BASOPHILS % (AUTO) 1.3 % (0.0-2.0); EOSINOPHILS % (AUTO) 7.3 % (0.0-3.0); HEMOGLOBIN 10.7 G/DL (14.2-18.0); LYMPHOCYTES % (AUTO) 32.4 % (20.0-45.0); MEAN CORPUSCULAR VOLUME 104 FL (80-99); NEUTROPHILS % (AUTO) 42.9 % (45.0-75.0); PLATELET COUNT 163 K/UL (150-450); RED BLOOD COUNT 3.07 M/UL (4.70-6.10); RED CELL DISTRIBUTION WIDTH 12.2 % (11.6-14.8); WHITE BLOOD COUNT 5.9 K/UL (4.8-10.8)
--- NOTE | 2018-09-06 07:33 | NUR ---
NURSE NOTES: received report from MOISES Lindsay patient in bed. alert, verbally responsive. no respiratory distress noted. no c/o pain at this time. IV intact. SCD in place. bed in the lowest position. call light within reach. alarm on. will continue to monitor.
[2018-09-06 08:00] VITALS: BP 123/78
[2018-09-06] MEDS: Thiamine 100mg tab ORAL SCH (08:44)
[2018-09-06] MEDS: Spironolactone 50mg tab ORAL SCH ×2 (08:44→17:40)
[2018-09-06] MEDS ORDERED: Furosemide 40mg tab ORAL SCH (09:00)
--- NOTE | 2018-09-06 09:00 | General Progress Note ---
Assessment/Plan Assessment/Plan ascites cirrhosis fluid overload PLAN tap diurese dc once stable and fluid removed Subjective Allergies: Coded Allergies: No Known Allergies (Unverified , 07/22/18) Subjective noted abdominal discomfort Objective Last 24 Hour Vital Signs Date Time Temp Pulse Resp B/P (MAP) Pulse Ox O2 Delivery O2 Flow Rate FiO2 09/06/18 08:44 96 123/78 09/06/18 04:00 98.4 90 18 111/70 (84) 100 09/05/18 23:54 99.0 101 20 124/80 (95) 95 09/05/18 23:06 Room Air 09/05/18 20:45 98.1 100 22 137/99 100 Room Air 09/05/18 20:03 98.1 100 22 137/99 100 Room Air 09/05/18 17:13 117 28 Room Air 09/05/18 16:54 98.1 117 28 150/94 98 Room Air Intake and Output 09/05/18 09/06/18 18:59 06:59 Intake Total 0 ml 655 ml Balance 0 ml 655 ml Intake Oral 0 ml IV Total 655 ml # Voids 2 Laboratory Tests 09/05/18 17:45: White Blood Count 9.2, Red Blood Count 3.32L, Hemoglobin 11.6L, Hematocrit 34.1L , Mean Corpuscular Volume 103H, Mean Corpuscular Hemoglobin 35.1H, Mean Corpuscular Hemoglobin Concent 34.1, Red Cell Distribution Width 11.8, Platelet Count 196, Mean Platelet Volume 4.8L, Neutrophils (%) (Auto) 50.2, Lymphocytes ( %) (Auto) 25.3, Monocytes (%) (Auto) 17.0H, Eosinophils (%) (Auto) 6.1H, Basophils (%) (Auto) 1.5, Prothrombin Time 14.1H, Prothromb Time International Ratio 1.4H, Activated Partial Thromboplast Time 30, Sodium Level 140, Potassium Level 3.0L, Chloride Level 104, Carbon Dioxide Level 28, Anion Gap 9, Blood Urea Nitrogen 13, Creatinine 0.9, Estimat Glomerular Filtration Rate > 60, Glucose Level 94, Calcium Level 8.5, Total Bilirubin 2.4H, Direct Bilirubin 1.6H , Aspartate Amino Transf (AST/SGOT) 40H, Alanine Aminotransferase (ALT/SGPT) 26 , Alkaline Phosphatase 174H, Total Protein 7.4, Albumin 2.0L, Globulin 5.4, Albumin/Globulin Ratio 0.4L, Lipase 231 09/05/18 20:20: Urine Color Lizzeth, Urine Appearance Slightly cloudy, Urine pH 6, Urine Specific [place] 1.020, Urine Protein 1+H, Urine Glucose (UA) Negative, Urine Ketones Negative, Urine Blood 1+H, Urine Nitrite Negative, Urine Bilirubin 2+H, Urine Ictotest Positive, Urine Urobilinogen 12H, Urine Leukocyte Esterase 1+H, Urine RBC 2-4H, Urine WBC 2-4, Urine Squamous Epithelial Cells ModerateH, Urine Bacteria Few, Urine Mucus ModerateH 09/06/18 06:15: White Blood Count 5.9, Red Blood Count 3.07L, Hemoglobin 10.7L, Hematocrit 32.0L , Mean Corpuscular Volume 104H, Mean Corpuscular Hemoglobin 34.7H, Mean Corpuscular Hemoglobin Concent 33.3, Red Cell Distribution Width 12.2, Platelet Count 163, Mean Platelet Volume 5.6L, Neutrophils (%) (Auto) 42.9L, Lymphocytes (%) (Auto) 32.4, Monocytes (%) (Auto) 16.0H, Eosinophils (%) (Auto) 7.3H, Basophils (%) (Auto) 1.3, Prothrombin Time 15.4H, Prothromb Time International Ratio 1.5H, Sodium Level 141, Potassium Level 3.5, Chloride Level 107, Carbon Dioxide Level 27, Anion Gap 7, Blood Urea Nitrogen 12, Creatinine 0.7, Estimat Glomerular Filtration Rate > 60, Glucose Level 80, Calcium Level 8.0L Height (Feet): 5 Height (Inches): 4.00 Weight (Pounds): 200 Objective WDWN NAD clear breath sounds bilaterally without rhonchi or wheeze [id number] without MRG NABS nontender ascites no CC edema nonfocal Tj Byrd MD Sep 06, 2018 09:00
--- NOTE | 2018-09-06 11:07 | NUR ---
Social Service Note SW met with patient and charge nurse who provided Estonian translation. Patient is alert, oriented and verbally responsive. SW familiar with patient from previous admission. Patient was chronically homeless at that time with a long history of ETOH abuse. Upon discharge patient was placed at [facility]. Patient is currently not homeless and is residing in an [facility] program call [address] [place] [address], [facility] [address] [facility] [address] . SW spoke with Charles Singletary who indicated patient may return to facility at anytime. Patient will need to arrive with discharge paperwork. Patient may also return over the weekend. Patient is also in agreement to return to facility. Patient states he has not drunk alcohol since discharge from the hospital. Taxi will be provide upon discharge for transportation back to the hospital. Will monitor and be available as needed.
--- NOTE | 2018-09-06 11:47 | NUR ---
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 PHOS 174 IS:NS IV x1L K-DUR 20meq ROXICODONE 5mg CEFTRIAXONE 5mg LASIX 40mg IV ADMITTED TO MED/SURG DC PLAN: RETURN TO [facility] TO SERVE [facility]
[2018-09-06 12:00] VITALS: BP_SYST 110; BP_SYST 64; BP_DIAS 64
--- NOTE | 2018-09-06 12:11 | Diagnostic Imaging Report ---
APPROVED REPORT CPT Code: 31147 Present Symptoms Lower Extremity Edema: Bilateral Comments: Screening Technically difficult study due to edema BILATERAL: Imaging reveals a patent deep venous system bilaterally. There is no evidence of thrombus within the common femoral, superficial femoral, popliteal or tibial segments. The greater saphenous veins are within normal limits. Doppler indicates normal spontaneous flow within these segments.
--- NOTE | 2018-09-06 15:08 | Diagnostic Imaging Report ---
Indications: Ascites Procedure: Informed consent obtained. Ultrasound used to localize optimal puncture site. Sterile prepping and draping over the optimum site. Local anesthesia with 1% lidocaine. Under real-time ultrasound guidance, puncture of the peritoneal space performed using paracentesis needle. Digital image was saved and archived. Stylet removed. Catheter placed to vacuum bottle suction. Fluid was aspirated. Patient tolerated procedure well, without immediate complication. Findings: Followup sonography demonstrates complete resolution of peritoneal fluid Impression: Successful ultrasound-guided paracentesis, yielding 6.2 liters of fluid
[2018-09-06 16:00] VITALS: BP 108/60
--- NOTE | 2018-09-06 19:00 | NUR ---
NURSE NOTES: Pt has arrived in the unit. AAOX4. Luxembourger speaker but can understand Tajik. Daughter and at the bedside. IV site is patent and intact. Band aid on the abdomen, no bleeding noted. Bed in lowest position. Call light within reach. Will continue to monitor. Addendum: 09/06/18 at 1918 by SAMMY RAJAN RN Received a report from Ankit Velazquez RN. AAOX4. Luxembourger speaker but can understand Tajik. Daughter and at the bedside. IV site is patent and intact. Band aid on the abdomen, no bleeding noted. Bed in lowest position. Call light within reach. Will continue to monitor.
--- NOTE | 2018-09-06 19:34 | NUR ---
HAND-OFF: Report given to MOISES Lindsay.
[2018-09-06 20:00] VITALS: BP 99/55
[2018-09-06] MEDS: cefTRIAXone 1 GM in D5W 55 ML IVPB SCH (21:29)
[2018-09-07] VITALS: BP 108/61
[2018-09-07 04:00] VITALS: BP 95/61
--- NOTE | 2018-09-07 07:16 | NUR ---
HAND-OFF: Report given to MOISES Interiano.
--- NOTE | 2018-09-07 07:40 | NUR ---
NURSE NOTES: pt in bed with no sob nor in any form of distress noted. denies any pain at this time. Breathing regular and unlabored. denies any pain at this time. will continue to monitor
[2018-09-07 08:00] VITALS: BP 111/59
[2018-09-07] MEDS: Spironolactone 50mg tab ORAL SCH (08:56)
[2018-09-07] MEDS: Thiamine 100mg tab ORAL SCH (08:56)
--- NOTE | 2018-09-07 11:22 | Pulmonology Progress Note ---
Assessment/Plan Assessment/Plan Pulmonary Progress Note Assessment/Plan ascites cirrhosis fluid overload PLAN s/p tap 6.2L diurese ga planning today Subjective Allergies: Coded Allergies: No Known Allergies (Unverified , 07/22/18) Subjective noted abdominal discomfort Objective Vital Signs Noted Laboratory Tests Noted LE Dupplex negative DVT 09/05/18 17:45: White Blood Count 9.2, Red Blood Count 3.32L, Hemoglobin 11.6L, Hematocrit 34.1L , Mean Corpuscular Volume 103H, Mean Corpuscular Hemoglobin 35.1H, Mean Corpuscular Hemoglobin Concent 34.1, Red Cell Distribution Width 11.8, Platelet Count 196, Mean Platelet Volume 4.8L, Neutrophils (%) (Auto) 50.2, Lymphocytes ( %) (Auto) 25.3, Monocytes (%) (Auto) 17.0H, Eosinophils (%) (Auto) 6.1H, Basophils (%) (Auto) 1.5, Prothrombin Time 14.1H, Prothromb Time International Ratio 1.4H, Activated Partial Thromboplast Time 30, Sodium Level 140, Potassium Level 3.0L, Chloride Level 104, Carbon Dioxide Level 28, Anion Gap 9, Blood Urea Nitrogen 13, Creatinine 0.9, Estimat Glomerular Filtration Rate > 60, Glucose Level 94, Calcium Level 8.5, Total Bilirubin 2.4H, Direct Bilirubin 1.6H , Aspartate Amino Transf (AST/SGOT) 40H, Alanine Aminotransferase (ALT/SGPT) 26 , Alkaline Phosphatase 174H, Total Protein 7.4, Albumin 2.0L, Globulin 5.4, Albumin/Globulin Ratio 0.4L, Lipase 231 09/05/18 20:20: Urine Color Lizzeth, Urine Appearance Slightly cloudy, Urine pH 6, Urine Specific [place] 1.020, Urine Protein 1+H, Urine Glucose (UA) Negative, Urine Ketones Negative, Urine Blood 1+H, Urine Nitrite Negative, Urine Bilirubin 2+H, Urine Ictotest Positive, Urine Urobilinogen 12H, Urine Leukocyte Esterase 1+H, Urine RBC 2-4H, Urine WBC 2-4, Urine Squamous Epithelial Cells ModerateH, Urine Bacteria Few, Urine Mucus ModerateH 09/06/18 06:15: White Blood Count 5.9, Red Blood Count 3.07L, Hemoglobin 10.7L, Hematocrit 32.0L , Mean Corpuscular Volume 104H, Mean Corpuscular Hemoglobin 34.7H, Mean Corpuscular Hemoglobin Concent 33.3, Red Cell Distribution Width 12.2, Platelet Count 163, Mean Platelet Volume 5.6L, Neutrophils (%) (Auto) 42.9L, Lymphocytes (%) (Auto) 32.4, Monocytes (%) (Auto) 16.0H, Eosinophils (%) (Auto) 7.3H, Basophils (%) (Auto) 1.3, Prothrombin Time 15.4H, Prothromb Time International Ratio 1.5H, Sodium Level 141, Potassium Level 3.5, Chloride Level 107, Carbon Dioxide Level 27, Anion Gap 7, Blood Urea Nitrogen 12, Creatinine 0.7, Estimat Glomerular Filtration Rate > 60, Glucose Level 80, Calcium Level 8.0L Height (Feet): 5 Height (Inches): 4.00 Weight (Pounds): 200 Objective WDWN NAD clear breath sounds bilaterally without rhonchi or wheeze [id number] without MRG NABS nontender ascites no CC edema nonfocal Subjective ROS Limited/Unobtainable: No Allergies: Coded Allergies: No Known Allergies (Unverified , 07/22/18) Objective Last 24 Hour Vital Signs Date Time Temp Pulse Resp B/P (MAP) Pulse Ox O2 Delivery O2 Flow Rate FiO2 09/07/18 09:35 Room Air 09/07/18 08:57 86 111/59 09/07/18 08:00 98.2 86 18 111/59 (76) 96 09/07/18 04:00 98.1 84 18 95/61 (72) 95 09/07/18 00:00 98.5 85 18 108/61 (77) 95 09/06/18 21:00 90 99/55 09/06/18 21:00 Room Air 09/06/18 20:00 98.5 90 19 99/55 (70) 96 09/06/18 16:00 98.1 75 18 108/60 (76) 95 09/06/18 12:00 98.0 86 18 64/64 (64) 95 09/06/18 12:00 98.0 86 18 110/64 (79) 95 Intake and Output 09/06/18 09/07/18 18:59 06:59 Intake Total 360 ml 175 ml Output Total 750 ml 300 ml Balance -390 ml -125 ml Intake Oral 360 ml 120 ml IV Total 55 ml Output Urine Total 750 ml 300 ml # Bowel Movements 1 Microbiology Date/Time Source Procedure Growth Status 09/05/18 21:50 Rectum VRE Culture - Final NO VANCOMYCIN RESISTANT ENTEROCOCCUS ... Complete Current Medications Medications (Trade) Dose Ordered Sig/Jm Route PRN Reason Start Time Stop Time Status Last Admin Dose Admin Acetaminophen (Tylenol) 500 mg Q8H PRN ORAL PAIN 1-6 09/05/18 21:15 10/05/18 21:14 Ceftriaxone Sodium 1 gm/ Dextrose 55 ml @ 110 mls/hr Q24H IVPB 09/05/18 22:00 09/12/18 21:59 09/06/18 21:29 Folic Acid (Folate) 1 mg DAILY ORAL 09/06/18 09:00 10/06/18 08:59 09/07/18 08:56 Furosemide (Lasix) 40 mg DAILY IV 09/06/18 09:00 10/06/18 08:59 09/07/18 08:56 Labetalol HCl (Normodyne) 100 mg Q12HR ORAL 09/06/18 09:00 10/06/18 08:59 09/07/18 08:57 Ondansetron HCl (Zofran) 4 mg Q8H PRN IVP Nausea & Vomiting 09/05/18 21:15 10/05/18 21:14 Oxycodone HCl (Roxicodone) 5 mg Q6H PRN ORAL For Severe Pain 09/05/18 21:30 09/12/18 21:29 09/05/18 23:12 Pantoprazole (Protonix) 40 mg DAILY ORAL 09/06/18 09:00 10/06/18 08:59 09/07/18 08:56 Spironolactone (Aldactone) 50 mg BID ORAL 09/06/18 09:00 10/06/18 08:59 09/07/18 08:56 Thiamine HCl (Vitamin B1) 100 mg DAILY ORAL 09/06/18 09:00 10/06/18 08:59 09/07/18 08:56 Nitish Rosado MD Sep 07, 2018 11:22
[2018-09-07 12:00] VITALS: BP 109/58
[2018-09-07] MEDS ORDERED: FUROSEMIDE20 M1 ORAL (12:38)
[2018-09-07] MEDS ORDERED: D5 1/2NS 1000ml IV ONE (15:10)
--- NOTE | 2018-09-07 15:13 | NUR ---
NURSE NOTES: pt discharged to [facility] program call [facility] [address] [facility], located at [address] [place] [address] via Taxi with stable condition. pt denies any pain nor discomfort. All medication refill given to the pt and verbalized understanding how to take them. all belongings given to the pt and signed.
--- NOTE | 2018-09-10 12:34 | Discharge Summary ---
Discharge Summary Discharge Summary _ DATE OF ADMISSION: 09/05/2018 DATE OF DISCHARGE: 09/07/2018 DISCHARGED BY: Dr. Byrd REASON FOR ADMISSION: 48 years old male with past medical history of hypertension, cirrhosis, presented to emergency department complaint of abdominal pain and distention for the last 9 days. Pain described as sharp, nonradiating, 10 out of 10 on a scale 1-10. Last paracentesis was done in July at [facility]. Patient denied fever and chills. Patient denied chest pain or shortness of breath. Upon evaluation patient was tachycardic heart rate 117, tachypneic with respiratory rate 28. Blood pressure was elevated 150/94. Pulse oximetry was stable on room air. Laboratory workup revealed no leukocytosis, hemoglobin 11.6, hematocrit 34.1. Platelet count 196. INR 1.4. Potassium 3.0. BUN 13, creatinine 0.9. Glucose 94. AST 40, ALT 26. Total bilirubin 2.4, direct bilirubin 1.6. Albumin 2.0. Lipase 231. Patient admitted for further management HOSPITAL COURSE: Patient admitted to medical surgical floor. Ultrasound-guided paracentesis yielded 6.2 L of fluid. Pathology of pleural fluid was done on previous admission, in July, and revealed no evidence of malignant cells. Venous duplex bilateral lower extremity revealed no evidence of acute DVT. Patient initially started on empiric antibiotic for possible spontaneous bacterial peritonitis. Patient was on diuresis with lasix and Aldactone with close monitoring of volumes and cardiorenal parameters. Blood pressure was managed with beta-manjula and diuretics. Blood pressure stable. Potassium was corrected as needed. Folic acid and thiamine were continued. GI prophylaxis provided. Pain management was addressed. Supportive care provided. Patient clinically stabilized and was ready for patient was discharged home FINAL DIAGNOSES: Ascites Fluid overload Status post ultrasound-guided paracentesis Cirrhosis Hypertension DISCHARGE MEDICATIONS: See Medication Reconciliation list. DISCHARGE INSTRUCTIONS: Patient was discharged home. Follow up with primary care provider in one week. I have been assigned to dictate discharge summary for this account. I was not involved in the patient's management. Ophelia Wang NP Sep 10, 2018 12:34
== END 2018-09-07 15:11 | disposition home or self-care (01) ==
LOC: EMR 17:23 → 4E 19:12 → EDBEDREQ 20:19
PROC: 0W9G3ZZ Drainage of Peritoneal Cavity, Percutaneous Approach (ICD-10-PCS; principal; 2018-09-06)
DX: R18.8 Other ascites (principal); K74.60 Unspecified cirrhosis of liver; E87.79 Other fluid overload; I10 Essential (primary) hypertension
CPT/HCPCS: 36415; 76942; 80048; 80053; 81003; 82248; 83690; 85025; 85610; 85730; 87081; 93970; 99285; J8499

== ENCOUNTER 2018-09-15 10:35 | Inpatient (IN) | payer MEDICAID ==
[~2018-09-15] VITALS: Ht 190.5 cm; Wt 107.0 kg
[~2018-09-15 10:35] MED LIST changes: +FUROSEMIDE20 M1 ORAL
--- NOTE | 2018-09-15 10:50 | NUR ---
ED Nurse Note: Patient walked into ED from home, patient ambulates with walker, patient c/o abdominal pain for 3 days. patient reports 9/10 pain. Alert awake x4, daughter by the bedside.
[2018-09-15] MEDS ORDERED: DiphenhydrAMINE 50mg/ml Inj IVP ONE (11:00)
[2018-09-15] MEDS ORDERED: Morphine Sulfate 2mg/ml Inj(IV/IM USE ONLY) IVP ONE (11:00)
[2018-09-15 11:30] LABS: INR 1.4 (0.9-1.1)
[2018-09-15 11:33] LABS: BASOPHILS % (AUTO) 1.6 % (0.0-2.0); EOSINOPHILS % (AUTO) 11.4 % (0.0-3.0); HEMATOCRIT 33.3 % (42.0-52.0); HEMOGLOBIN 11.4 G/DL (14.2-18.0); LYMPHOCYTES % (AUTO) 27.6 % (20.0-45.0); MEAN CORPUSCULAR VOLUME 101 FL (80-99); MONOCYTES % (AUTO) 17.2 % (1.0-10.0); NEUTROPHILS % (AUTO) 42.2 % (45.0-75.0); PLATELET COUNT 165 K/UL (150-450); RED BLOOD COUNT 3.31 M/UL (4.70-6.10); RED CELL DISTRIBUTION WIDTH 12.4 % (11.6-14.8); WHITE BLOOD COUNT 7.1 K/UL (4.8-10.8)
[2018-09-15 11:34] LABS: ANION GAP 3 mmol/L (5-15); BLOOD UREA NITROGEN 8 mg/dL (7-18); CALCIUM 8.1 MG/DL (8.5-10.1); CARBON DIOXIDE 30 MMOL/L (21-32); CHLORIDE 105 MMOL/L (98-107); SODIUM 138 MMOL/L (136-145)
[2018-09-15 11:35] LABS: AMMONIA 79 umol/L (11-32)
--- NOTE | 2018-09-15 11:45 | NUR ---
ED Nurse Note: patient went down for xray
--- NOTE | 2018-09-15 11:50 | NUR ---
Note rexcarlo in EDM - 09/15/18 at 1201 by CORRINAO ED Nurse Note: Patient walked into ED from home, patient ambulates with walker, patient c/o abdominal pain for 3 days. patient reports 9/10 pain. Alert awake x4, daughter by the bedside.
[2018-09-15 11:51] LABS: ALANINE AMINOTRANSFERASE 17 U/L (12-78); ALBUMIN 1.9 G/DL (3.4-5.0); ALBUMIN/GLOBULIN RATIO 0.4 (1.0-2.7); ALKALINE PHOSPHATASE 131 U/L (46-116); ASPARTATE AMINO TRANSFERASE 34 U/L (15-37); BILIRUBIN,TOTAL 2.2 MG/DL (0.2-1.0); CREATINE KINASE 45 U/L (26-308)
[2018-09-15 11:53] LABS: BILIRUBIN,DIRECT 1.4 MG/DL (0.0-0.3)
--- NOTE | 2018-09-15 11:57 | NUR ---
ED Nurse Note: patient came back from xray
[2018-09-15 11:58] VITALS: BP 109/63
[2018-09-15 12:01] LABS: CREATININE 0.9 MG/DL (0.55-1.30)
--- NOTE | 2018-09-15 12:10 | Diagnostic Imaging Report ---
INDICATION: Abdominal Pain COMPARISON: None FINDINGS: Single frontal view demonstrates a normal cardiomediastinal silhouette. There is elevation of right hemidiaphragm with opacity in the right lower lung zone. The lungs are clear. No pleural effusions. The visualized osseous structures are within normal limits. IMPRESSION: There is elevation of right hemidiaphragm with opacity in the right lower lung zone.
--- NOTE | 2018-09-15 12:48 | Diagnostic Imaging Report ---
INDICATION: Abdominal Pain COMPARISON: None FINDINGS: Single frontal view of the abdomen demonstrates prominent centralized small bowel within the abdomen suggestive of ascites. No evidence of organomegaly, abnormal calcifications or obvious soft tissue masses. The osseous structures are intact. IMPRESSION: Prominent centralized small bowel suggestive of ascites, given prominence of bowel, if clinical concern dedicated CT of the abdomen and pelvis can be obtained.
[2018-09-15 13:12] LABS: APPEARANCE,URINE CLEAR; BILIRUBIN, URINE NEGATIVE (NEGATIVE); COLOR,URINE PALE YELLOW; GLUCOSE, URINE (UA) NEGATIVE (NEGATIVE); KETONES,URINE NEGATIVE (NEGATIVE); LEUKOCYTE ESTERASE ,URINE NEGATIVE (NEGATIVE); NITRITE,URINE NEGATIVE (NEGATIVE); PH,URINE 7 (4.5-8.0); PROTEIN,URINE NEGATIVE (NEGATIVE); UROBILINOGEN,URINE 1 MG/DL (0.0-1.0)
[2018-09-15 13:27] VITALS: BP 108/72
[2018-09-15] MEDS ORDERED: Lidocaine 1% 10mg/ml/Epi 0.005mg/ml 30ml vial INJ ONE (13:45)
--- NOTE | 2018-09-15 14:00 | NUR ---
ED Nurse Note: bedside diagnostic paracentesis done without complication. specimen collected by Dr. Nash and sent down to lab.
--- NOTE | 2018-09-15 14:02 | Emergency Room Report ---
History of Present Illness General Chief Complaint: Abdominal Pain Source: Patient, Medical Record Present Illness HPI Patient presents with increased abdominal pain and distention. There is a history of ascites. He was tapped several weeks ago as an outpatient here. He states he is felt chills. The pain is significant and is abdomen diffusely. Does not radiate. He denies any dysuria. This feels somewhat similar to when he had his ascites before but the pain is sharper at this time. The pain is rated 9/10 in pressure and aching somewhat sharp. The patient has a history of cirrhosis. He denies confusion. His daughters oversee his care. There is no nausea, vomiting, diarrhea, melena. Patient has easy bruising. There is no trauma. He denies alcohol use recently. Allergies: Coded Allergies: No Known Allergies (Unverified , 07/22/18) Patient History Past Medical History: see triage record Social History: Denies: alcohol use - In the past Social History Narrative With daughters Nursing Documentation-H Hx Cardiac Problems: Yes Hx Gastrointestinal Problems: Yes - cirrhosis Hx Neurological Problems: No Hx Cerebrovascular Accident: No Hx Transient Ischemic Attacks: No Hx Dementia: No Hx Alzheimer's Disease: No Hx Parkinson's Disease: No Hx Meningitis: No Hx Encephalitis: No Hx Seizures: No Hx Epilepsy: No Hx Multiple Sclerosis: No Hx Cerebral Palsy: No Hx Amyotrophic Lat Sclerosis: No Hx Guillian-Alpine Syndrome: No Hx Paralysis: No Hx Peripheral Neuropathy: No Hx Spinal Cord Injury: No Hx Head Trauma: No Hx Traumatic Brain Injury: No Hx Memory Loss: No Hx Concentration Difficulty: No Hx Tremors: No Hx Vertigo: No Hx Headaches: No Hx Aphasia: No Hx Dysphasia: No Hx Weakness: Yes Hx Fatigue: Yes Review of Systems All Other Systems: negative except mentioned in HPI Physical Exam Vital Signs Date Time Temp Pulse Resp B/P (MAP) Pulse Ox O2 Delivery O2 Flow Rate FiO2 09/15/18 10:45 98.1 83 18 110/74 96 09/15/18 11:58 Room Air 21 Sp02 EP Interpretation: reviewed, normal General Appearance: no apparent distress, alert, GCS 15, Chronically Ill Head: normocephalic Eyes: bilateral eye PERRL, bilateral eye scleral icterus ENT: moist mucus membranes Neck: supple Respiratory: lungs clear, normal breath sounds Cardiovascular #1: regular rate, rhythm, edema Cardiovascular #2: 2+ radial (R) Gastrointestinal: no rebound, distended, guarding, tenderness, other - Fluid wave Genitourinary: no CVA tenderness Musculoskeletal: back normal, normal range of motion, no calf tenderness Neurologic: alert, motor strength/tone normal, DTRs symmetric, cerebellar normal, speech normal, other - No asterixis, oriented - X2 Psychiatric: mood/affect normal Skin: warm/dry, other - [place] Procedures Additional Procedure Procedure Narrative Paracentesis Betadine prep and draped.: 1% lidocaine with epinephrine infused intradermally and then deep with a 21-gauge needle. 18-gauge needle to aspirate 60 mils of straw-colored ascites fluid. No bleeding. Samples sent to the lab. Tolerated well. Minimal leakage from site after tap. Pressure dressing applied. 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 Differential includes reaccumulation of ascites, spontaneous bacterial peritonitis, urinary tract infection, liver failure, coagulopathy, encephalopathy amongst others. Evaluation with EKG, chest x-ray, abdominal film and labs. Treatment with mild analgesia and Pepcid. Will attempt to perform therapeutic paracentesis via ultrasound with radiology.. CXR with atelectasis vs infiltrate. Ascites with abd film. White count normal. INR 1.4.Elevated alk phos. Elevated ammonia. Radiology unable to perform therapeutic paracentesis. Concern about abdominal pain - possible SBP. Needs diagnostic paracentesis and antibiotics. Diagnostic paracentesis. 60 ml of straw colored fluid. Samples sent to lab. Leaking post paracentesis. Patient somewhat improvedPatient admitted to the hospital. Message left with daughter. Antibiotics begun post paracentesis. Admitted med Dr. Delaney. Dr. Moseley notified. Consideration for therapeutic paracentesis when radiology available. Clinically not encephalopathic. Lactulose not administered in the emergency department. Laboratory Tests Test 09/15/18 11:10 09/15/18 13:03 09/15/18 14:00 White Blood Count 7.1 K/UL (4.8-10.8) Red Blood Count 3.31 M/UL (4.70-6.10) L Hemoglobin 11.4 G/DL (14.2-18.0) L Hematocrit 33.3 % (42.0-52.0) L Mean Corpuscular Volume 101 FL (80-99) H Mean Corpuscular Hemoglobin 34.4 PG (27.0-31.0) H Mean Corpuscular Hemoglobin Concent 34.2 G/DL (32.0-36.0) Red Cell Distribution Width 12.4 % (11.6-14.8) Platelet Count 165 K/UL (150-450) Mean Platelet Volume 5.7 FL (6.5-10.1) L Neutrophils (%) (Auto) 42.2 % (45.0-75.0) L Lymphocytes (%) (Auto) 27.6 % (20.0-45.0) Monocytes (%) (Auto) 17.2 % (1.0-10.0) H Eosinophils (%) (Auto) 11.4 % (0.0-3.0) H Basophils (%) (Auto) 1.6 % (0.0-2.0) Prothrombin Time 14.2 SEC (9.30-11.50) H Prothrombin Time INR 1.4 (0.9-1.1) H PTT 30 SEC (23-33) Sodium Level 138 MMOL/L (136-145) Potassium Level 4.0 MMOL/L (3.5-5.1) Chloride Level 105 MMOL/L (98-107) Carbon Dioxide Level 30 MMOL/L (21-32) Anion Gap 3 mmol/L (5-15) L Blood Urea Nitrogen 8 mg/dL (7-18) Creatinine 0.9 MG/DL (0.55-1.30) Estimate Glomerular Filtration Rate > 60 mL/min (>60) Glucose Level 79 MG/DL (74-106) Lactic Acid Level 1.60 mmol/L (0.4-2.0) Calcium Level 8.1 MG/DL (8.5-10.1) L Total Bilirubin 2.2 MG/DL (0.2-1.0) H Direct Bilirubin 1.4 MG/DL (0.0-0.3) H Aspartate Amino Transferase (AST) 34 U/L (15-37) Alanine Aminotransferase (ALT) 17 U/L (12-78) Alkaline Phosphatase 131 U/L (46-116) H Ammonia 79 umol/L (11-32) H Total Creatine Kinase 45 U/L (26-308) Total Protein 6.8 G/DL (6.4-8.2) Albumin 1.9 G/DL (3.4-5.0) L Globulin 4.9 g/dL Albumin/Globulin Ratio 0.4 (1.0-2.7) L Lipase 118 U/L (73-393) Urine Color Pale yellow Urine Appearance Clear Urine pH 7 (4.5-8.0) Urine Specific [place] 1.005 (1.005-1.035) Urine Protein Negative (NEGATIVE) Urine Glucose (UA) Negative (NEGATIVE) Urine Ketones Negative (NEGATIVE) Urine Blood Negative (NEGATIVE) Urine Nitrite Negative (NEGATIVE) Urine Bilirubin Negative (NEGATIVE) Urine Urobilinogen 1 MG/DL (0.0-1.0) H Urine Leukocyte Esterase Negative (NEGATIVE) Body Fluid Source Paracentesis Body Fluid Volume 3 mL Body Fluid Appearance Clear (Clear) Body Fluid RBC 157 /CUMM Body Fluid Total Nucleated Cells 81 /CUMM Body Fluid Polynuclear WBCs (%) 11 % Body Fluid Mononuclear WBCs (%) 78 % Body Fluid Mesothelial Cells (%) 18 % Body Fluid Glucose Pending Body Fluid Total Protein Pending Body Fluid Lactate Dehydrogenase Pending EKG Diagnostic Results Rate: normal Rhythm: NSR ST Segments: no acute changes - LVH - NSSTTW changes Rhythm Strip Diag. Results EP Interpretation: yes Rhythm: NSR, no PVC's, no ectopy Chest X-Ray Diagnostic Results Chest X-Ray Diagnostic Results : Chest X-Ray Ordered: Yes # of Views/Limited/Complete: 1 View Indication: Other EP Interpretation: Yes Interpretation: no effusion, no pneumothorax, other - R infiltrate vs atelectasis Impression: Other PA Scribe Text Electronically signed by Nitish Nash MD Other X-Ray Diagnostic Results Other X-Ray Diagnostic Results : X-Ray ordered: abd # of Views/Limited Vs Complete: 2 View Indication: Pain EP Interpretation: Yes Interpretation: nonspecific bowel gas, no sbo, other - ascites Impression: Other Electronically Signed by: Electronically signed by Nitish Nash MD Last Vital Signs Date Time Temp Pulse Resp B/P (MAP) Pulse Ox O2 Delivery O2 Flow Rate FiO2 09/15/18 20:41 75 119/70 09/15/18 20:00 98.2 19 96 09/15/18 16:06 Room Air 09/15/18 15:34 21 Status: improved Disposition: ADMITTED INPATIENT Condition: Serious Referrals: NOT CHOSEN IPA/,REFERRING (PCP) Nitish Nash MD Sep 15, 2018 14:02
[2018-09-15] MEDS ORDERED: Cefepime 1gm vial IM ONE (14:15)
[2018-09-15] MEDS ORDERED: Cefepime HCl 1 GM in D5W 55 ML IVPB ONE (14:15)
[2018-09-15] MEDS ORDERED: Phytonadione 10 mg/mL 1ml amp SUBQ ONE (14:15)
--- NOTE | 2018-09-15 14:30 | NUR ---
ED Nurse Note: PRESSURE DRESSING APPLIED BY DR. GODOY ON THE PARACENTESIS SITE.
--- NOTE | 2018-09-15 15:25 | NUR ---
Cas rice in EDM - 09/15/18 at 1532 by CORRINAO ED Nurse Note: PATIENT WENT DOWN FOR CT SCAN A/O X4, VSS.
--- NOTE | 2018-09-15 15:25 | NUR ---
ED Nurse Note: PATIENT TRANSFERRED TO 4E, REPORT GIVEN TO HUMPHREY RN, PATIENT WENT UP WITH ALL OF HIS BELONGINGS.
[2018-09-15 15:42] VITALS: BP 120/71
--- NOTE | 2018-09-15 16:09 | NUR ---
NURSE NOTES: PT ARRIVED ON UNIT IN STABLE CONDITION. VSS. ALL BELONGINGS REVIEWED AND ACCOUNTED. PT HAS [employer] AND $65 NICK AND WALKER AT BEDSIDE. PT DOES NOT WANT TO PLACE BELONGINGS IN SAFE. PT SIGNED RELEASE OF LIABILITY. IN NO APPARENT DISTRESS AT THIS TIME. PT WITH PRESSURE DRESSING TO ANTERIOR ABDOMEN FROM PARACENTESIS DONE IN ER. DR RODRIGUEZ COVERING FOR DR WILLIS AND MADE AWARE OF ADMISSION AND REQUEST FOR ADMISSION ORDERS.
--- NOTE | 2018-09-15 16:42 | NUR ---
NURSE NOTES: RECEIVED ADMISSION ORDERS FROM DR RODRIGUEZ. HOME MEDICATIONS AND ABNORMAL LABS REVIEWED WITH DR RODRIGUEZ. ORDER TO START CLEAR LIQUID DIET TO SEE IF PT TOLERATES . TO CONSULT DR COX FOR GI. RN CALLED AND SPOKE TO DR COX AND MADE AWARE OF NEW CONSULT.
--- NOTE | 2018-09-15 19:26 | NUR ---
HAND-OFF: Report given to Wei GRAHAM LVN.
--- NOTE | 2018-09-15 19:30 | NUR ---
NURSE NOTES: RECEIVED PATIENT LYING IN BED, APPEAR TO BE ASLEEP, EASILY AWAKENED, ALERT/ORIENTED X4, DENIES PAIN, NO SIGNS AND SYMPTOMS OF ACUTE CARDIO RESPIRATORY DISTRESS/SHORTNESS OF BREATH, DENIES CHEST PAIN. BILATERAL LOWER EXTREMITIES EDEMATOUS, +2 PITTED EDEMA, ELEVATED EACH EXTREMITY ON PILLOW LENGTHWISE WITH HEELS FLOATING. ABDOMEN LARGE, HYPOACTIVE BOWEL SOUNDS, S/P US GUIDED PARACENTESIS IN ER, 60ML FLUID DRAINED, BAND AID INTACT TO ANTERIOR/DISTAL/MEDIAL ASPECT OF ABDOMEN, NO STAIN NOTED. SIDE RAILS UP X3/BED IN LOWEST POSITION FOR SAFETY. ENCOURAGED PATIENT TO UTILIZE CALL LIGHT FOR ASSISTANCE FOR PREVENTIVE MEASURES, VERBALIZED UNDERSTANDING. BED ALARM ACTIVATED/ZONE 1. LG CELL PHONE REMAIN AT BEDSIDE, REFUSE TO SEND TO SAFE.
--- NOTE | 2018-09-15 19:54 | History and Physical ---
History of Present Illness General Date patient seen: Sep 15, 2018 Time patient seen: 19:33 Reason for Hospitalization: Abdominal Pain Present Illness HPI CC: increased abdominal pain and distention. HPI: 48 yo man with history of recently diagnosed cirrhosis s/p paracentesis several weeks ago as an outpatient here at [facility] returns with abdominal pain and swelling. He states he has felt chills but has not documented a fever. The pain is significant and is abdomen diffusely. Does not radiate. He denies any dysuria. This feels somewhat similar to when he had his ascites before but the pain is sharper at this time. The pain is rated 9/10 in pressure and aching somewhat sharp. The patient has a history of cirrhosis. He denies confusion. His daughters oversee his care. There is no nausea, vomiting, diarrhea, melena. Patient has easy bruising. There is no trauma. He denies alcohol use recently. In the ED, a diagnostic paracentesis was performed and IV antibiotics started. Patient was admitted for symptom control PMHX; As per HPI HTN SHx: History of EtOH abuse in past, none recently No tobacco FHx:Reviewed by me; not pertinent for this encounter Allergies: Coded Allergies: No Known Allergies (Unverified , 07/22/18) Medication History Scheduled Folic Acid* (Folic Acid*), 1 MG ORAL DAILY, (Reported) Furosemide* (Lasix*), 40 MG ORAL DAILY, (Reported) Furosemide* (Lasix*), 20 MG ORAL DAILY, (Reported) Labetalol Hcl* (Normodyne*), 100 MG ORAL BID, (Reported) Pantoprazole* (Protonix*), 40 MG ORAL DAILY Spironolactone* (Aldactone*), 50 MG ORAL BID Thiamine Hcl* (Vitamin B-1*), 100 MG ORAL DAILY, (Reported) Scheduled PRN Oxycodone Hcl* (Oxycodone Hcl*), 5 MG ORAL Q6H PRN for For Pain Patient History Limited by: language barrier History Provided By: Patient, Medical Record, Caregiver Healthcare decision maker N Resuscitation status Full Code Advanced Directive on File Review of Systems Constitutional: Reports: malaise, weakness Eye: Reports: no symptoms Respiratory: Reports: no symptoms Cardiovascular: Reports: no symptoms Gastrointestinal: Reports: abdominal pain, nausea Genitourinary: Reports: no symptoms Musculoskeletal: Reports: no symptoms Psychiatric: Reports: no symptoms Neurological: Reports: no symptoms Endocrine: Reports: no symptoms Hematologic/Lymphatic: Reports: no symptoms All Other Systems: negative except mentioned in HPI Physical Exam General Appearance: moderate distress Lines, tubes and drains: peripheral HEENT: normocephalic, atraumatic, anicteric, mucous membranes moist, PERRL, pharynx normal, supple Neck: non-tender, supple Respiratory/Chest: decreased breath sounds Breasts: no masses Cardiovascular/Chest: normal peripheral pulses, normal rate, regular rhythm Abdomen: normal bowel sounds, distended, tender, other - +fluid wave Genitourinary/Rectal: normal genital exam Extremities: normal range of motion, non-tender, moderate edema Skin Exam: normal pigmentation 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31 M/UL (4.70-6.10) L Hemoglobin 11.4 G/DL (14.2-18.0) L Hematocrit 33.3 % (42.0-52.0) L Mean Corpuscular Volume 101 FL (80-99) H Mean Corpuscular Hemoglobin 34.4 PG (27.0-31.0) H Mean Corpuscular Hemoglobin Concent 34.2 G/DL (32.0-36.0) Red Cell Distribution Width 12.4 % (11.6-14.8) Platelet Count 165 K/UL (150-450) Mean Platelet Volume 5.7 FL (6.5-10.1) L Neutrophils (%) (Auto) 42.2 % (45.0-75.0) L Lymphocytes (%) (Auto) 27.6 % (20.0-45.0) Monocytes (%) (Auto) 17.2 % (1.0-10.0) H Eosinophils (%) (Auto) 11.4 % (0.0-3.0) H Basophils (%) (Auto) 1.6 % (0.0-2.0) Prothrombin Time 14.2 SEC (9.30-11.50) H Prothromb Time International Ratio 1.4 (0.9-1.1) H Activated Partial Thromboplast Time 30 SEC (23-33) Sodium Level 138 MMOL/L (136-145) Potassium Level 4.0 MMOL/L (3.5-5.1) Chloride Level 105 MMOL/L (98-107) Carbon Dioxide Level 30 MMOL/L (21-32) Anion Gap 3 mmol/L (5-15) L Blood Urea Nitrogen 8 mg/dL (7-18) Creatinine 0.9 MG/DL (0.55-1.30) Estimat Glomerular Filtration Rate > 60 mL/min (>60) Glucose Level 79 MG/DL (74-106) Lactic Acid Level 1.60 mmol/L (0.4-2.0) Calcium Level 8.1 MG/DL (8.5-10.1) L Total Bilirubin 2.2 MG/DL (0.2-1.0) H Direct Bilirubin 1.4 MG/DL (0.0-0.3) H Aspartate Amino Transf (AST/SGOT) 34 U/L (15-37) Alanine Aminotransferase (ALT/SGPT) 17 U/L (12-78) Alkaline Phosphatase 131 U/L (46-116) H Ammonia 79 umol/L (11-32) H Total Creatine Kinase 45 U/L (26-308) Total Protein 6.8 G/DL (6.4-8.2) Albumin 1.9 G/DL (3.4-5.0) L Globulin 4.9 g/dL Albumin/Globulin Ratio 0.4 (1.0-2.7) L Lipase 118 U/L (73-393) Urine Color Pale yellow Urine Appearance Clear Urine pH 7 (4.5-8.0) Urine Specific [place] 1.005 (1.005-1.035) Urine Protein Negative (NEGATIVE) Urine Glucose (UA) Negative (NEGATIVE) Urine Ketones Negative (NEGATIVE) Urine Blood Negative (NEGATIVE) Urine Nitrite Negative (NEGATIVE) Urine Bilirubin Negative (NEGATIVE) Urine Urobilinogen 1 MG/DL (0.0-1.0) H Urine Leukocyte Esterase Negative (NEGATIVE) Body Fluid Source Paracentesis Body Fluid Volume 3 mL Body Fluid Appearance Clear (Clear) Body Fluid RBC 157 /CUMM Body Fluid Total Nucleated Cells 81 /CUMM Body Fluid Polynuclear WBCs (%) 11 % Body Fluid Mononuclear WBCs (%) 78 % Body Fluid Mesothelial Cells (%) 18 % Body Fluid Glucose Pending Body Fluid Total Protein Pending Body Fluid Lactate Dehydrogenase Pending Height (Feet): 6 Height (Inches): 3.00 Weight (Pounds): 235 Medications Current Medications Medications (Trade) Dose Ordered Sig/Jm Route PRN Reason Start Time Stop Time Status Last Admin Dose Admin Folic Acid (Folate) 1 mg DAILY ORAL 09/16/18 09:00 10/16/18 08:59 Furosemide (Lasix) 40 mg DAILY ORAL 09/16/18 09:00 10/16/18 08:59 Heparin Sodium (Porcine) (Heparin 5000 units/ml) 5,000 units EVERY 12 HOURS SUBQ 09/15/18 21:00 10/15/18 20:59 Labetalol HCl (Normodyne) 100 mg Q12HR ORAL 09/15/18 21:00 10/15/18 20:59 Pantoprazole (Protonix) 40 mg DAILY ORAL 09/16/18 09:00 10/16/18 08:59 Spironolactone (Aldactone) 50 mg EVERY 12 HOURS ORAL 09/15/18 21:00 10/15/18 20:59 Thiamine HCl (Vitamin B1) 100 mg DAILY ORAL 09/16/18 09:00 10/16/18 08:59 Assessment/Plan Status: not improved Status Narrative 48 yo man with decompensated cirrhosis of unclear etiology admitted for abdominal pain Assessment/Plan #Decompensated cirrhosis #abdominal pain -s/p diagnostic paracentesis in ED -f/u peritoneal fluid analysis to r/o SBP -IV antibiotics started in ED -continue furosemide/spirinolactone -elevated ammonia- will consider lactulose although patient does not appear to be encephalopathic -GI consult in AM -pain control/IV antiemetics as needed #anemia, macrocytic -No signs for GI bleed -continue to monitor closely -check B12, folate, TSH, iron studies, ferritin #HTN cont labetalol #Transaminitis #Elevated bilirubin -likely secondary to cirrhosis -GI consult as above DVT Prophylaxis: SCD's, heparin Code Status: Full Hospital Classification declaration: Based on this initial evaluation and depending on the patient's clinical course I anticipate that this patient will require hospitalization for at least 2-3 days Disposition: Once the patient is stable to leave the hospital I anticipate the patient will likely be discharged to the following environment: Home I spent 70 minutes on this patients care and 36 minutes was dedicated to counseling and care coordination Time of note may not reflect time of encounter Enrique Moseley MD Sep 15, 2018 19:54
[2018-09-15 20:00] VITALS: BP 119/70
[2018-09-15] MEDS: Spironolactone 50mg tab ORAL SCH (20:40)
[2018-09-15] MEDS: Heparin 5000 units/ml inj SUBQ SCH (20:42)
--- NOTE | 2018-09-15 23:39 | NUR ---
NURSE NOTES: RESTING WELL, NO SIGNS AND SYMPTOMS OF DISTRESS-
[2018-09-16] VITALS: BP 102/59
[2018-09-16 04:00] VITALS: BP 96/54
--- NOTE | 2018-09-16 06:36 | NUR ---
NURSE NOTES: RESTED WELL, NO SIGNIFICANT CHANGE OF CONDITION NOTED THROUGHOUT THE NIGHT. SAFETY MAINTAINED. NAD.
--- NOTE | 2018-09-16 07:07 | NUR ---
HAND-OFF: Report given to MOISES YIN.
--- NOTE | 2018-09-16 07:41 | NUR ---
NURSE NOTES: PT AXOX4, CALM, RESTING IN BED. PT STATES HE HAS PAIN 7/10 OF ANTERIOR ABDOMEN. BED IN LOWEST POSITION WITH BEDSIDE RAILS X2 RAISED. CALL LIGHT WITHIN REACH. LG PHONE AT BEDSIDE. WILL CONTINUE TO MONITOR.
[2018-09-16 08:00] VITALS: BP 102/67
[2018-09-16] MEDS: Furosemide 40mg tab ORAL SCH (08:17)
[2018-09-16] MEDS: Spironolactone 50mg tab ORAL SCH ×2 (08:17→21:01)
[2018-09-16] MEDS: Thiamine 100mg tab ORAL SCH (08:17)
[2018-09-16] MEDS: Heparin 5000 units/ml inj SUBQ SCH ×2 (08:23→21:00)
[2018-09-16 12:00] VITALS: BP 100/59
--- NOTE | 2018-09-16 12:25 | NUR ---
CASE MANAGEMENT: REVIEW 48/M PRESENTED TO ED FROM HOME CC: ABD PAIN 02/19 SI: ASCITES . CIRRHOSIS . RIGHT LOWER LOBE CONSOLIDATION VS ATELECTASIS PARACENTESIS 60ML 09/15 T 98.1 HR 83 RR 15 BP 109/63 SAT 96% ROOM AIR T-BILI 2.2 D-BILI 1.4 ALK PHOS 131 AMMONIA 79 PT / INR 14.2/1.4 IS: BENADRYL IV X1 MORPHINE IV X1 PEPCID IV X1 ZOFRAN IV X1 LIDOCAINE INJ X1 CEFEPIME IV X1 VIT K SQ X1 FLAGYL IV X1 PATIENT ADMITTED TO MED/SURG UNIT 09/15/2018 DCP: PATIENT IS FROM HOME
--- NOTE | 2018-09-16 13:33 | General Progress Note ---
Assessment/Plan Assessment/Plan Assessment - EtOH Cirrhosis - Ascites - Jaundice - Edema Recommendations - Agree with lasix and aldactone - therapeutic paracentesis - check AFP - consider Xifaxan Thank you Wilmer Flores MD Subjective Allergies: Coded Allergies: No Known Allergies (Unverified , 07/22/18) Objective Last 24 Hour Vital Signs Date Time Temp Pulse Resp B/P (MAP) Pulse Ox O2 Delivery O2 Flow Rate FiO2 09/16/18 12:00 98.3 74 18 100/59 (73) 96 09/16/18 09:00 Room Air 09/16/18 08:31 97 102/67 09/16/18 08:00 97.9 97 18 102/67 (79) 97 09/16/18 04:00 98.2 18 96/54 (68) 94 09/16/18 00:00 98.2 73 18 102/59 (73) 96 09/15/18 21:00 Room Air 09/15/18 20:41 75 119/70 09/15/18 20:00 98.2 75 19 119/70 (86) 96 09/15/18 16:06 Room Air 09/15/18 15:42 98.0 68 20 120/71 (87) 97 09/15/18 15:34 98.1 78 16 108/72 98 Room Air 21 Intake and Output 09/15/18 09/16/18 18:59 06:59 Intake Total 240 ml 120 ml Balance 240 ml 120 ml Intake Oral 240 ml 120 ml Laboratory Tests 09/15/18 14:00: Body Fluid Source Paracentesis, Body Fluid Volume 3, Body Fluid Appearance Clear , Body Fluid RBC 157, Body Fluid Total Nucleated Cells 81, Body Fluid Polynuclear WBCs (%) 11, Body Fluid Mononuclear WBCs (%) 78, Body Fluid Mesothelial Cells (%) 18, Body Fluid Glucose [Pending], Body Fluid Total Protein [Pending], Body Fluid Lactate Dehydrogenase [Pending] Height (Feet): 6 Height (Inches): 3.00 Weight (Pounds): 235 Wilmer Flores MD Sep 16, 2018 13:33
--- NOTE | 2018-09-16 15:46 | General Progress Note ---
Assessment/Plan Status: not improved Assessment/Plan #Decompensated cirrhosis #abdominal pain -s/p diagnostic paracentesis in ED -GI recs appreciated- check AFP, hepatitis panel -peritoneal fluid negative for SBP -continue furosemide/spironolactone -elevated ammonia- will consider rifaximin although patient does not appear to be encephalopathic -pain control/IV antiemetics as needed -Therapeutic paracentesis tomorrow AM by radiology #anemia, macrocytic -No signs for GI bleed -continue to monitor closely -check B12, folate, TSH, iron studies, ferritin #HTN cont labetalol #Transaminitis #Elevated bilirubin -likely secondary to cirrhosis -GI recs appreciated- will need hepatitis panel to elucidate etiology of cirrhosis although likely alcoholic DVT Prophylaxis: SCD's, heparin Code Status: Full Disposition: Once the patient is stable to leave the hospital, I anticipate the patient will likely be discharged to the following environment:Home I spent 45 minutes on this patient's case, and 24 minutes was dedicated to counseling and/or care coordination. Time of note may not reflect time of encounter. Subjective Date patient seen: Sep 16, 2018 Time patient seen: 15:36 ROS Limited/Unobtainable: No Constitutional: Reports: malaise, weakness HEENT: Reports: no symptoms Cardiovascular: Reports: no symptoms Respiratory: Reports: no symptoms Gastrointestinal/Abdominal: Reports: abdomen distended, abdominal pain, nausea , poor appetite Genitourinary: Reports: no symptoms Neurologic/Psychiatric: Reports: no symptoms Endocrine: Reports: no symptoms Hematologic/Lymphatic: Reports: no symptoms Allergies: Coded Allergies: No Known Allergies (Unverified , 07/22/18) All Systems: reviewed and negative except above Subjective Events of overnight noted; chart reviewed by me Patient with continued abdominal discomfort and distension Notes some leakage of ascitic fluid from diagnostic paracentesis puncture site Afebrile overnight Objective Last 24 Hour Vital Signs Date Time Temp Pulse Resp B/P (MAP) Pulse Ox O2 Delivery O2 Flow Rate FiO2 09/16/18 12:00 98.3 74 18 100/59 (73) 96 09/16/18 09:00 Room Air 09/16/18 08:31 97 102/67 09/16/18 08:00 97.9 97 18 102/67 (79) 97 09/16/18 04:00 98.2 18 96/54 (68) 94 09/16/18 00:00 98.2 73 18 102/59 (73) 96 09/15/18 21:00 Room Air 09/15/18 20:41 75 119/70 09/15/18 20:00 98.2 75 19 119/70 (86) 96 09/15/18 16:06 Room Air Intake and Output 09/15/18 09/16/18 18:59 06:59 Intake Total 240 ml 120 ml Balance 240 ml 120 ml Intake Oral 240 ml 120 ml Height (Feet): 6 Height (Inches): 3.00 Weight (Pounds): 235 General Appearance: mild distress, cachetic, thin EENT: PERRL/EOMI, scleral icterus, pale conjunctivae Neck: non-tender, normal inspection Cardiovascular: normal peripheral pulses, normal rate, regular rhythm Respiratory/Chest: chest wall non-tender, no accessory muscle use, decreased breath sounds Abdomen: decreased bowel sounds, distended Pelvis: normal external exam Extremities: normal range of motion Edema: moderate edema Neurologic: show girl II-XII grossly normal, no pronator drift Skin: warm/dry Lymphatic: normal anterior cervical (L), normal anterior cervical (R) Enrique Moseley MD Sep 16, 2018 15:46
[2018-09-16 16:00] VITALS: BP 108/65
[2018-09-16] MEDS: oxyCODONE HCL/Acetaminophen 5/325mg ORAL PRN (16:10)
--- NOTE | 2018-09-16 19:15 | Consultation ---
DATE OF CONSULTATION: 09/16/2018 GASTROENTEROLOGY CONSULTATION CONSULTING PHYSICIAN: Wilmer Flores M.D. REFERRING PHYSICIAN: Radha Delaney M.D. CHIEF COMPLAINT: I was asked to see this patient by Dr. Delaney for evaluation of cirrhosis. HISTORY OF PRESENT ILLNESS: The patient is a 48-year-old man with a history of alcoholic cirrhosis, who comes into the hospital due to abdominal distention. The patient apparently has drank for many years, but he did not carry the diagnosis of definitive cirrhosis until June of 2018 when he began showing signs of decompensated liver disease. He has been admitted in July for paresthesias and again and now was admitted overnight for abdominal distention and discomfort. The patient denies any nausea or vomiting, and has not had any endoscopy or colonoscopy. His stools are regular and brown. PAST MEDICAL HISTORY: Status post cholecystectomy. FAMILY HISTORY: Noncontributory. SOCIAL HISTORY: The patient is . He does have two children. He does not smoke. At this time, he does not drink alcohol. REVIEW OF SYSTEMS: Otherwise negative. PHYSICAL EXAMINATION: GENERAL: A pleasant man, seen in his room. HEENT: Normocephalic and atraumatic. Sclerae anicteric. Oropharynx is clear. NECK: Supple. CHEST: Clear to auscultation. CARDIOVASCULAR: Revealed regular rate. ABDOMEN: Soft and distended, but not tensed. There is no tenderness or organomegaly although examination was difficult due to the ascites. EXTREMITIES: Revealed 2+ edema. NEUROLOGIC: Grossly nonfocal and not suggestive of encephalopathy. LABORATORY AND DIAGNOSTIC DATA: Laboratory data was noted and CT scan of the abdomen from July was reviewed, showing cirrhosis versus ascites versus varices and status post cholecystectomy. The patient's ammonia was mildly elevated at 79. Paracentesis showed 81 white cells only. ASSESSMENT: This patient presents with ascites and alcoholic cirrhosis. He was apparently on the Lasix and Aldactone as an outpatient, although doses are unclear, which does not appear to be . He cannot recall his outpatient medications, but they should include Lasix and Aldactone at a dose adequate to achieve diuresis. He may also benefit from Xifaxan given that he has mild elevation in his ammonia although he does not appear to be grossly encephalopathic. His long-term prognosis will be limited by this liver disease and he should be seen at the transplant center for possible future liver transplant although at this time he needs to be evaluated first. He was also advised strongly to refrain from drinking alcohol. His hepatitis B and C markers should also be evaluated, and not already been checked in the previous visits. RECOMMENDATIONS: Per above discussion and per orders written in the chart. Thank you for asking me to participate in care this patient. Wilmer Flores M.D. DR: JAKI JOB#: [id number] CC:
--- NOTE | 2018-09-16 19:22 | NUR ---
HAND-OFF: Report given to MOISES MONROY.
[2018-09-16 20:00] VITALS: BP 104/67
--- NOTE | 2018-09-16 20:30 | NUR ---
NURSE NOTES: Received patient resting in bed, calm, alert and oriented x4. Family at bedside. Patient states he has pain 4/10 of anterior abdomen. Bed in the lowest position with bed alarms on. Call light is without reach. Will follow up with pain meds and will continue to monitor.
[2018-09-17 00:54] VITALS: BP 95/61
[2018-09-17 04:29] VITALS: BP 94/52
[2018-09-17 07:09] LABS: BASOPHILS % (AUTO) 1.6 % (0.0-2.0); EOSINOPHILS % (AUTO) 10.2 % (0.0-3.0); HEMATOCRIT 34.1 % (42.0-52.0); HEMOGLOBIN 11.4 G/DL (14.2-18.0); LYMPHOCYTES % (AUTO) 32.7 % (20.0-45.0); MEAN CORPUSCULAR VOLUME 102 FL (80-99); MONOCYTES % (AUTO) 14.8 % (1.0-10.0); NEUTROPHILS % (AUTO) 40.7 % (45.0-75.0); PLATELET COUNT 163 K/UL (150-450); RED BLOOD COUNT 3.33 M/UL (4.70-6.10); RED CELL DISTRIBUTION WIDTH 11.9 % (11.6-14.8); WHITE BLOOD COUNT 5.9 K/UL (4.8-10.8)
[2018-09-17 07:14] LABS: ALANINE AMINOTRANSFERASE 16 U/L (12-78); ALBUMIN 1.7 G/DL (3.4-5.0); ALBUMIN/GLOBULIN RATIO 0.4 (1.0-2.7); ALKALINE PHOSPHATASE 122 U/L (46-116); ANION GAP 6 mmol/L (5-15); ASPARTATE AMINO TRANSFERASE 33 U/L (15-37); BILIRUBIN,TOTAL 2.7 MG/DL (0.2-1.0); BLOOD UREA NITROGEN 8 mg/dL (7-18); CALCIUM 8.2 MG/DL (8.5-10.1); CARBON DIOXIDE 28 MMOL/L (21-32); CHLORIDE 103 MMOL/L (98-107); FERRITIN 179 NG/ML (8-388); SODIUM 137 MMOL/L (136-145)
[2018-09-17 07:15] LABS: BILIRUBIN,DIRECT 1.4 MG/DL (0.0-0.3)
[2018-09-17 07:32] LABS: % IRON SATURATION 74 % (15-50); IRON 100 ug/dL (50-175); TOTAL IRON BINDING CAPACITY 135 ug/dL (250-450)
--- NOTE | 2018-09-17 07:37 | NUR ---
HAND-OFF: Report given to MOISES Lindsay.
[2018-09-17 08:00] VITALS: BP 135/69
--- NOTE | 2018-09-17 08:35 | NUR ---
NURSE NOTES: Patient is alert and oriented X4. Patient is Hebrew speaking. Patient reports pain on abdomen upon movement. Side rails are up X2, bed is locked, and in lowest position. Will continue to monitor.
[2018-09-17] MEDS: Heparin 5000 units/ml inj SUBQ SCH ×2 (09:00→20:28)
[2018-09-17] MEDS: Spironolactone 50mg tab ORAL SCH ×2 (09:20→21:00)
[2018-09-17] MEDS: Thiamine 100mg tab ORAL SCH (09:20)
[2018-09-17] MEDS: Furosemide 40mg tab ORAL SCH (09:20)
--- NOTE | 2018-09-17 10:10 | General Progress Note ---
Assessment/Plan Assessment/Plan #Decompensated cirrhosis #abdominal pain #Ascites -s/p diagnostic paracentesis in ED without evidence for SBP -therapeutic paracentesis planned for today -GI following -continue furosemide/spironolactone -pain control/IV antiemetics as needed #anemia, macrocytic -No signs for GI bleed -continue to monitor closely -check B12, folate, TSH, iron studies, ferritin #HTN cont labetalol #Transaminitis #Elevated bilirubin -likely secondary to cirrhosis -GI recs appreciated- will need hepatitis panel to elucidate etiology of cirrhosis although likely alcoholic DVT Prophylaxis: SCD's, heparin Code Status: Full Disposition: Once the patient is stable to leave the hospital, I anticipate the patient will likely be discharged to the following environment:Home I spent 45 minutes on this patient's case, and 24 minutes was dedicated to counseling and/or care coordination. Time of note may not reflect time of encounter. Subjective Date patient seen: Sep 17, 2018 Time patient seen: 10:00 ROS Limited/Unobtainable: No Constitutional: Denies: chills, fever HEENT: Denies: blurred vision, double vision Cardiovascular: Denies: chest pain, edema Respiratory: Denies: cough, orthopnea Gastrointestinal/Abdominal: Reports: abdomen distended, abdominal pain Allergies: Coded Allergies: No Known Allergies (Unverified , 07/22/18) Subjective Medicine follow up for cirrhosis and ascites. No new complaints. Awaiting therapeutic paracentesis today, Objective Last 24 Hour Vital Signs Date Time Temp Pulse Resp B/P (MAP) Pulse Ox O2 Delivery O2 Flow Rate FiO2 09/17/18 09:20 84 135/69 09/17/18 04:29 98.3 78 18 94/52 (66) 96 09/17/18 00:54 98.2 71 18 95/61 (72) 98 09/16/18 21:00 Room Air 09/16/18 21:00 77 99/55 09/16/18 20:00 98.5 77 18 104/67 (79) 96 09/16/18 16:00 98.6 77 19 108/65 (79) 98 09/16/18 12:00 98.3 74 18 100/59 (73) 96 Intake and Output 09/16/18 09/17/18 19:00 07:00 Intake Total 500 ml Output Total 450 ml Balance 500 ml -450 ml Intake Oral 500 ml Output Urine Total 450 ml # Voids 4 1 # Bowel Movements 2 1 Laboratory Tests 09/17/18 06:30: White Blood Count 5.9, Red Blood Count 3.33L, Hemoglobin 11.4L, Hematocrit 34.1L , Mean Corpuscular Volume 102H, Mean Corpuscular Hemoglobin 34.0H, Mean Corpuscular Hemoglobin Concent 33.3, Red Cell Distribution Width 11.9, Platelet Count 163, Mean Platelet Volume 5.9L, Neutrophils (%) (Auto) 40.7L, Lymphocytes (%) (Auto) 32.7, Monocytes (%) (Auto) 14.8H, Eosinophils (%) (Auto) 10.2H, Basophils (%) (Auto) 1.6, Sodium Level 137, Potassium Level 4.0, Chloride Level 103, Carbon Dioxide Level 28, Anion Gap 6, Blood Urea Nitrogen 8, Creatinine 1.0 , Estimat Glomerular Filtration Rate > 60, Glucose Level 85, Calcium Level 8.2L , Magnesium Level 1.4L, Iron Level 100, Total Iron Binding Capacity 135L, Percent Iron Saturation 74H, Unsaturated Iron Binding 35L, Ferritin 179, Total Bilirubin 2.7H, Direct Bilirubin 1.4H, Aspartate Amino Transf (AST/SGOT) 33, Alanine Aminotransferase (ALT/SGPT) 16, Alkaline Phosphatase 122H, Total Protein 6.4, Albumin 1.7L, Globulin 4.7, Albumin/Globulin Ratio 0.4L, Alpha Fetoprotein [Pending], Vitamin B12 Level 944, Folate 19.5, Thyroid Stimulating Hormone (TSH) 3.797H Height (Feet): 6 Height (Inches): 3.00 Weight (Pounds): 235 General Appearance: no apparent distress, alert Neck: normal alignment, normal inspection Cardiovascular: normal rate, regular rhythm Respiratory/Chest: lungs clear, normal breath sounds Abdomen: soft, distended, tender - Mild diffuse tenderness Extremities: non-tender 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
--- NOTE | 2018-09-17 12:00 | GI Progress Note ---
Assessment/Plan Problems: (1) Cirrhosis ICD Codes: K74.60 - Unspecified cirrhosis of liver SNOMED: 65728108 Qualifiers: Qualified Codes: K70.31 - Alcoholic cirrhosis of liver with ascites (2) Coagulopathy ICD Codes: D68.9 - Coagulation defect, unspecified SNOMED: 39138688 (3) Ascites ICD Codes: R18.8 - Other ascites SNOMED: 780371027 Qualifiers: Qualified Codes: K70.31 - Alcoholic cirrhosis of liver with ascites (4) Abdominal pain ICD Codes: R10.9 - Unspecified abdominal pain SNOMED: 24998831 Qualifiers: Qualified Codes: R10.84 - Generalized abdominal pain Status: unchanged Status Narrative Discussed with Dr. Govea Assessment/Plan Patient scheduled for paracentesis today, will replace albumin if necessary Patient will need to be on Lasix and Aldactone Lactulose plus Xifaxan Patient may benefit from a upper endoscopy as an outpatient Follow labs, follow-up hepatitis panel Avoid alcohol Advance to low-sodium diet Follow labs The patient was seen and examined at bedside and all new and available data was reviewed in the patients chart. I agree with the above findings, impression and plan. (Patient seen earlier today. Signature stamp does not reflect patient encounter time.). - Los Govea MD Subjective Subjective Abdominal distention Abdominal discomfort Objective Last 24 Hour Vital Signs Date Time Temp Pulse Resp B/P (MAP) Pulse Ox O2 Delivery O2 Flow Rate FiO2 09/17/18 09:20 84 135/69 09/17/18 08:45 Room Air 09/17/18 08:00 97.6 84 18 135/69 (91) 97 09/17/18 04:29 98.3 78 18 94/52 (66) 96 09/17/18 00:54 98.2 71 18 95/61 (72) 98 09/16/18 21:00 Room Air 09/16/18 21:00 77 99/55 09/16/18 20:00 98.5 77 18 104/67 (79) 96 09/16/18 16:00 98.6 77 19 108/65 (79) 98 09/16/18 12:00 98.3 74 18 100/59 (73) 96 Intake and Output 09/16/18 09/17/18 19:00 07:00 Intake Total 500 ml Output Total 450 ml Balance 500 ml -450 ml Intake Oral 500 ml Output Urine Total 450 ml # Voids 4 1 # Bowel Movements 2 1 Laboratory Tests Test 09/17/18 06:30 White Blood Count 5.9 K/UL (4.8-10.8) Red Blood Count 3.33 M/UL (4.70-6.10) L Hemoglobin 11.4 G/DL (14.2-18.0) L Hematocrit 34.1 % (42.0-52.0) L Mean Corpuscular Volume 102 FL (80-99) H Mean Corpuscular Hemoglobin 34.0 PG (27.0-31.0) H Mean Corpuscular Hemoglobin Concent 33.3 G/DL (32.0-36.0) Red Cell Distribution Width 11.9 % (11.6-14.8) Platelet Count 163 K/UL (150-450) Mean Platelet Volume 5.9 FL (6.5-10.1) L Neutrophils (%) (Auto) 40.7 % (45.0-75.0) L Lymphocytes (%) (Auto) 32.7 % (20.0-45.0) Monocytes (%) (Auto) 14.8 % (1.0-10.0) H Eosinophils (%) (Auto) 10.2 % (0.0-3.0) H Basophils (%) (Auto) 1.6 % (0.0-2.0) Sodium Level 137 MMOL/L (136-145) Potassium Level 4.0 MMOL/L (3.5-5.1) Chloride Level 103 MMOL/L (98-107) Carbon Dioxide Level 28 MMOL/L (21-32) Anion Gap 6 mmol/L (5-15) Blood Urea Nitrogen 8 mg/dL (7-18) Creatinine 1.0 MG/DL (0.55-1.30) Estimat Glomerular Filtration Rate > 60 mL/min (>60) Glucose Level 85 MG/DL (74-106) Calcium Level 8.2 MG/DL (8.5-10.1) L Magnesium Level 1.4 MG/DL (1.8-2.4) L Iron Level 100 ug/dL (50-175) Total Iron Binding Capacity 135 ug/dL (250-450) L Percent Iron Saturation 74 % (15-50) H Unsaturated Iron Binding 35 ug/dL (112-346) L Ferritin 179 NG/ML (8-388) Total Bilirubin 2.7 MG/DL (0.2-1.0) H Direct Bilirubin 1.4 MG/DL (0.0-0.3) H Aspartate Amino Transf (AST/SGOT) 33 U/L (15-37) Alanine Aminotransferase (ALT/SGPT) 16 U/L (12-78) Alkaline Phosphatase 122 U/L (46-116) H Total Protein 6.4 G/DL (6.4-8.2) Albumin 1.7 G/DL (3.4-5.0) L Globulin 4.7 g/dL Albumin/Globulin Ratio 0.4 (1.0-2.7) L Alpha Fetoprotein Pending Vitamin B12 Level 944 PG/ML (193-986) Folate 19.5 NG/ML (8.6-58.9) Thyroid Stimulating Hormone (TSH) 3.797 uiU/mL (0.358-3.740) Height (Feet): 6 Height (Inches): 3.00 Weight (Pounds): 235 General Appearance: WD/WN, no apparent distress, alert Cardiovascular: normal rate Respiratory/Chest: normal breath sounds, no respiratory distress Abdominal Exam: normal bowel sounds, non tender, soft, ascites Extremities: normal range of motion, non-tender Shari Mistry [employer] Sep 17, 2018 12:00
--- NOTE | 2018-09-17 12:07 | Pre-Procedure Note/Attestation ---
Pre-Procedure Note/Attestation Complete Prior to Procedure Planned Procedure: not applicable Procedure Narrative: Paracentesis Indications for Procedure Pre-Operative Diagnosis: Ascites Attestation I attest that I discussed the nature of the procedure; its benefits; risks and complications; and alternatives (and the risks and benefits of such alternatives ), prior to the procedure, with the patient (or the patient's legal public health representative). I attest that, if there was a reasonable possibility of needing a blood transfusion, the patient (or the patient's legal public health representative) was given the [facility] standardized written summary, pursuant to the Trent Anay Blood Safety Act ([place] Health and Safety Code # 1645, as amended). I attest that I re-evaluated the patient just prior to the surgery and that there has been no change in the patient's H&P, except as documented below: Prasanth Bates MD Sep 17, 2018 12:07
--- NOTE | 2018-09-17 12:13 | Brief Operative Note ---
Immediate Post Operative Note Operative Note Pre-op Diagnosis: Ascites Procedure: paracentesis Post-op Diagnosis: same as pre-op Surgeon: Kathy Curry Anesthesia: local Specimen: yes - clear yellow fluid, specimen sent to lab Complications: none Condition: stable Fluids: none Implant(s) used?: No Prasanth Curry MD Sep 17, 2018 12:13
--- NOTE | 2018-09-17 12:30 | NUR ---
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 CIRRHOSIS . RIGHT LOWER LOBE CONSOLIDATION VS ATELECTASIS VS: BP 94/52, P 84, T 97.6, RR 18, SpO2 96 RBC 3.33, Hgb 11.4, Hct 34.1, Ca 8.2, Mag 1.4 IS:LABETALOL 100mg ALDACTONE 50mg PROTONIX 40mg LASIX 40mg MED/SURG STATUS
[2018-09-17 16:00] VITALS: BP 121/71
[2018-09-17] MEDS: Lactulose 20gm/30ml UDC ORAL SCH ×2 (16:35→18:10)
[2018-09-17] MEDS: oxyCODONE HCL/Acetaminophen 5/325mg ORAL PRN (16:38)
--- NOTE | 2018-09-17 19:27 | Cardiology Report ---
APPROVED REPORT EKG Measurement Heart [id number] [id number] Normal sinus rhythm Voltage criteria for left ventricular hypertrophy Possible Lateral infarct, age undetermined Abnormal ECG
--- NOTE | 2018-09-17 19:30 | NUR ---
HAND-OFF: Report given to MOISES Anderson.
--- NOTE | 2018-09-17 19:34 | NUR ---
NURSE NOTES: Received patient awake,verbal,resting in bed comfortably without complaints.
[2018-09-17 20:00] VITALS: BP 90/57
[2018-09-18] VITALS (7 sets, daily range): BP systolic 90–101; BP diastolic 48–57
--- NOTE | 2018-09-18 07:00 | NUR ---
HAND-OFF: Report given to Ankit Velazquez RN.
--- NOTE | 2018-09-18 07:15 | NUR ---
NURSE NOTES: received report from MOISES Anderson. patient in bed. having breakfast. alert. verbally responsive. no respiratory distress noted.no c/o pain at thist time. bed in the lowest position. call light within reach. will continue to monitor.
[2018-09-18 07:35] LABS: BASOPHILS % (AUTO) 1.4 % (0.0-2.0); EOSINOPHILS % (AUTO) 9.8 % (0.0-3.0); HEMATOCRIT 32.7 % (42.0-52.0); LYMPHOCYTES % (AUTO) 39.3 % (20.0-45.0); MEAN CORPUSCULAR VOLUME 101 FL (80-99); MONOCYTES % (AUTO) 15.8 % (1.0-10.0); NEUTROPHILS % (AUTO) 33.7 % (45.0-75.0); PLATELET COUNT 134 K/UL (150-450); RED BLOOD COUNT 3.25 M/UL (4.70-6.10); RED CELL DISTRIBUTION WIDTH 12.1 % (11.6-14.8); WHITE BLOOD COUNT 4.7 K/UL (4.8-10.8)
[2018-09-18 07:46] LABS: ANION GAP 4 mmol/L (5-15); BLOOD UREA NITROGEN 7 mg/dL (7-18); CARBON DIOXIDE 28 MMOL/L (21-32); CHLORIDE 105 MMOL/L (98-107); CREATININE 0.9 MG/DL (0.55-1.30); POTASSIUM 3.4 MMOL/L (3.5-5.1); SODIUM 137 MMOL/L (136-145)
[2018-09-18 07:52] LABS: ALANINE AMINOTRANSFERASE 19 U/L (12-78); ALBUMIN 1.4 G/DL (3.4-5.0); ALKALINE PHOSPHATASE 102 U/L (46-116); ASPARTATE AMINO TRANSFERASE 31 U/L (15-37); BILIRUBIN,DIRECT 1.1 MG/DL (0.0-0.3)
--- NOTE | 2018-09-18 08:45 | Diagnostic Imaging Report ---
Indications: Ascites Technique: Ultrasound used to localize optimal puncture site. Sterile prepping and draping right lower quadrant. Local anesthesia with 1% lidocaine. Under real-time ultrasound guidance, puncture peritoneal space using paracentesis needle. Stylet removed. Catheter placed to vacuum bottle suction. Total 9400 liters of fluid aspirated. Patient tolerated procedure well, without immediate complication. Findings: Followup sonography demonstrates complete resolution of peritoneal fluid. Impression: Successful ultrasound-guided paracentesis, yielding 9400 liters of fluid
[2018-09-18] MEDS: Lactulose 20gm/30ml UDC ORAL SCH ×3 (08:52→17:34)
[2018-09-18] MEDS: Spironolactone 50mg tab ORAL SCH ×2 (08:54→20:47)
[2018-09-18] MEDS: Furosemide 40mg tab ORAL SCH (08:54)
[2018-09-18] MEDS: Thiamine 100mg tab ORAL SCH (08:54)
[2018-09-18] MEDS: Heparin 5000 units/ml inj SUBQ SCH ×2 (08:56→20:47)
--- NOTE | 2018-09-18 08:56 | General Progress Note ---
Assessment/Plan Assessment/Plan #Decompensated cirrhosis #abdominal pain #Ascites -s/p diagnostic paracentesis in ED without evidence for SBP -s/p therapeutic paracentesis with 10 liters removed yesterday -will give albumin infusion -GI following -continue furosemide/spironolactone -pain control/IV antiemetics as needed #anemia, macrocytic -No signs for GI bleed -continue to monitor closely -check B12, folate, TSH, iron studies, ferritin #HTN cont labetalol #Transaminitis #Elevated bilirubin -likely secondary to cirrhosis -GI recs appreciated- will need hepatitis panel to elucidate etiology of cirrhosis although likely alcoholic DVT Prophylaxis: SCD's, heparin Code Status: Full Disposition: Once the patient is stable to leave the hospital, I anticipate the patient will likely be discharged to the following environment:Home I spent 45 minutes on this patient's case, and 24 minutes was dedicated to counseling and/or care coordination. Time of note may not reflect time of encounter. Subjective Date patient seen: Sep 18, 2018 Time patient seen: 08:51 ROS Limited/Unobtainable: No Constitutional: Denies: chills, fever Cardiovascular: Reports: edema; Denies: chest pain Respiratory: Denies: cough, orthopnea Gastrointestinal/Abdominal: Reports: abdomen distended; Denies: abdominal pain Allergies: Coded Allergies: No Known Allergies (Unverified , 07/22/18) Subjective Medicine follow up for cirrhosis and ascites. Underwent therapeutic paracentesis yesterday with 10 liters removed. Patient reports having continued drainage from the paracentesis site and reports being soaked in fluids. Objective Last 24 Hour Vital Signs Date Time Temp Pulse Resp B/P (MAP) Pulse Ox O2 Delivery O2 Flow Rate FiO2 09/18/18 08:00 98.3 78 19 101/53 (69) 97 09/18/18 04:09 98.4 76 17 90/55 (67) 98 09/18/18 00:18 98.4 67 19 91/56 (68) 96 09/17/18 21:00 73 90/57 09/17/18 21:00 Room Air 09/17/18 20:00 98.5 73 18 90/57 (68) 96 09/17/18 16:00 99.9 86 19 121/71 (88) 96 09/17/18 09:20 84 135/69 Intake and Output 09/17/18 09/18/18 19:00 07:00 Intake Total 500 ml 360 ml Balance 500 ml 360 ml Intake Oral 360 ml Other 500 ml # Voids 3 Laboratory Tests 09/18/18 06:05: White Blood Count 4.7L, Red Blood Count 3.25L, Hemoglobin 11.0L, Hematocrit 32.7L, Mean Corpuscular Volume 101H, Mean Corpuscular Hemoglobin 33.8H, Mean Corpuscular Hemoglobin Concent 33.6, Red Cell Distribution Width 12.1, Platelet Count 134L, Mean Platelet Volume 5.8L, Neutrophils (%) (Auto) 33.7L, Lymphocytes (%) (Auto) 39.3, Monocytes (%) (Auto) 15.8H, Eosinophils (%) (Auto) 9.8H, Basophils (%) (Auto) 1.4, Sodium Level 137, Potassium Level 3.4L, Chloride Level 105, Carbon Dioxide Level 28, Anion Gap 4L, Blood Urea Nitrogen 7 , Creatinine 0.9, Estimat Glomerular Filtration Rate > 60, Glucose Level 80, Calcium Level 8.0L, Total Bilirubin 2.0H, Direct Bilirubin 1.1H, Aspartate Amino Transf (AST/SGOT) 31, Alanine Aminotransferase (ALT/SGPT) 19, Alkaline Phosphatase 102, Total Protein 5.5L, Albumin 1.4L, Hepatitis A IgM Antibody [ Pending], Hepatitis B Surface Antigen [Pending], Hepatitis B Core IgM Antibody [ Pending], Hepatitis C Antibody [Pending] Height (Feet): 6 Height (Inches): 3.00 Weight (Pounds): 235 General Appearance: no apparent distress, alert Neck: non-tender, normal alignment Respiratory/Chest: lungs clear, normal breath sounds Abdomen: non tender, soft, no mass 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
--- NOTE | 2018-09-18 10:31 | GI Progress Note ---
Assessment/Plan Problems: (1) Cirrhosis ICD Codes: K74.60 - Unspecified cirrhosis of liver SNOMED: 12572151 Qualifiers: Qualified Codes: K70.31 - Alcoholic cirrhosis of liver with ascites (2) Coagulopathy ICD Codes: D68.9 - Coagulation defect, unspecified SNOMED: 46930708 (3) Ascites ICD Codes: R18.8 - Other ascites SNOMED: 481208828 Qualifiers: Qualified Codes: K70.31 - Alcoholic cirrhosis of liver with ascites (4) Abdominal pain ICD Codes: R10.9 - Unspecified abdominal pain SNOMED: 70772195 Qualifiers: Qualified Codes: R10.84 - Generalized abdominal pain Status: progressing Status Narrative Discussed with Dr. Govea Assessment/Plan Status post paracentesis yielding approximately 9400 cc Replace albumin Patient will need to be on Lasix and Aldactone Lactulose plus Xifaxan Patient may benefit from a upper endoscopy as an outpatient Follow labs, follow-up hepatitis panel Avoid alcohol Advance to low-sodium diet Follow labs The patient was seen and examined at bedside and all new and available data was reviewed in the patients chart. I agree with the above findings, impression and plan. (Patient seen earlier today. Signature stamp does not reflect patient encounter time.). - Los Govea MD Subjective Subjective Abdominal distention improved Abdominal discomfort improved Objective Last 24 Hour Vital Signs Date Time Temp Pulse Resp B/P (MAP) Pulse Ox O2 Delivery O2 Flow Rate FiO2 09/18/18 08:57 78 101/53 09/18/18 08:00 98.3 78 19 101/53 (69) 97 09/18/18 04:09 98.4 76 17 90/55 (67) 98 09/18/18 00:18 98.4 67 19 91/56 (68) 96 09/17/18 21:00 73 90/57 09/17/18 21:00 Room Air 09/17/18 20:00 98.5 73 18 90/57 (68) 96 09/17/18 16:00 99.9 86 19 121/71 (88) 96 Intake and Output 09/17/18 09/18/18 19:00 07:00 Intake Total 500 ml 360 ml Balance 500 ml 360 ml Intake Oral 360 ml Other 500 ml # Voids 3 Laboratory Tests Test 09/18/18 06:05 White Blood Count 4.7 K/UL (4.8-10.8) L Red Blood Count 3.25 M/UL (4.70-6.10) L Hemoglobin 11.0 G/DL (14.2-18.0) L Hematocrit 32.7 % (42.0-52.0) L Mean Corpuscular Volume 101 FL (80-99) H Mean Corpuscular Hemoglobin 33.8 PG (27.0-31.0) H Mean Corpuscular Hemoglobin Concent 33.6 G/DL (32.0-36.0) Red Cell Distribution Width 12.1 % (11.6-14.8) Platelet Count 134 K/UL (150-450) L Mean Platelet Volume 5.8 FL (6.5-10.1) L Neutrophils (%) (Auto) 33.7 % (45.0-75.0) L Lymphocytes (%) (Auto) 39.3 % (20.0-45.0) Monocytes (%) (Auto) 15.8 % (1.0-10.0) H Eosinophils (%) (Auto) 9.8 % (0.0-3.0) H Basophils (%) (Auto) 1.4 % (0.0-2.0) Sodium Level 137 MMOL/L (136-145) Potassium Level 3.4 MMOL/L (3.5-5.1) L Chloride Level 105 MMOL/L (98-107) Carbon Dioxide Level 28 MMOL/L (21-32) Anion Gap 4 mmol/L (5-15) L Blood Urea Nitrogen 7 mg/dL (7-18) Creatinine 0.9 MG/DL (0.55-1.30) Estimat Glomerular Filtration Rate > 60 mL/min (>60) Glucose Level 80 MG/DL (74-106) Calcium Level 8.0 MG/DL (8.5-10.1) L Total Bilirubin 2.0 MG/DL (0.2-1.0) H Direct Bilirubin 1.1 MG/DL (0.0-0.3) H Aspartate Amino Transf (AST/SGOT) 31 U/L (15-37) Alanine Aminotransferase (ALT/SGPT) 19 U/L (12-78) Alkaline Phosphatase 102 U/L (46-116) Total Protein 5.5 G/DL (6.4-8.2) L Albumin 1.4 G/DL (3.4-5.0) L Hepatitis A IgM Antibody Pending Hepatitis B Surface Antigen Pending Hepatitis B Core IgM Antibody Pending Hepatitis C Antibody Pending Height (Feet): 6 Height (Inches): 3.00 Weight (Pounds): 235 General Appearance: WD/WN, no apparent distress, alert Cardiovascular: normal rate Respiratory/Chest: normal breath sounds, no respiratory distress Abdominal Exam: normal bowel sounds, non tender, soft, ascites, other - Colostomy bag for ascites drainage Extremities: normal range of motion, non-tender Shari Mistry APPLICATIONS ARCHITECT Sep 18, 2018 10:31
--- NOTE | 2018-09-18 11:59 | NUR ---
RD ASSESSMENT & RECOMMENDATIONS SEE CARE ACTIVITY FOR COMPLETE ASSESSMENT DAILY ESTIMATED NEEDS: Needs based on Liver dysfunction/ 95.6kg abw 25-30 kcals/kg [id number] total kcals 1-1.5 g protein/kg 96-143 g total protein Fluid per MD NUTRITION DIAGNOSIS: Decreased sodium intake needs R/T liver dysfunction as evidenced by dx of cirrhosis, w/ ascites, s/p paracentesis w/ 9.4 L removed. PO DIET RECOMMENDATIONS: LOW NA/ texture as tolerated ADDITIONAL RECOMMENDATIONS: * Standing wt as able for accurate CBW * Monitor lytes daily while on diuretics, replete as needed Low K, Low Mg * Fluid per MD
--- NOTE | 2018-09-18 12:42 | NUR ---
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 CIRRHOSIS . RIGHT LOWER LOBE CONSOLIDATION VS ATELECTASIS VS: BP 93/48, P 80, T 97.3, RR 21, SpO2 96 WBC 4.7, RBC 3.25, Hgb 11.0, Hct 32.7, Ca 8.0, K3.4 IS: ALBUMIN 50ml IV RIFAXIMIN 550mg LACTULOSE 30gm LASIX 40mg LABETALOL 100mg ALDACTONE 50mg PROTONIX 40mg MED/SURG STATUS
--- NOTE | 2018-09-18 18:56 | NUR ---
HAND-OFF: Report given to MOISES Hazel.
--- NOTE | 2018-09-18 19:43 | NUR ---
NURSE NOTES: received patient awake,alert,verbal,Thai speaking,speaks little Swedish,resting in bed,comfortable.
[2018-09-18] MEDS: oxyCODONE HCL/Acetaminophen 5/325mg ORAL PRN (20:47)
[2018-09-19 04:14] VITALS: BP 101/53
--- NOTE | 2018-09-19 07:17 | NUR ---
HAND-OFF: Report given to Ankit Velazquez RN.
[2018-09-19 07:20] LABS: BASOPHILS % (AUTO) 1.1 % (0.0-2.0); EOSINOPHILS % (AUTO) 8.4 % (0.0-3.0); HEMATOCRIT 30.1 % (42.0-52.0); HEMOGLOBIN 10.1 G/DL (14.2-18.0); LYMPHOCYTES % (AUTO) 36.8 % (20.0-45.0); MEAN CORPUSCULAR VOLUME 101 FL (80-99); MONOCYTES % (AUTO) 16.4 % (1.0-10.0); NEUTROPHILS % (AUTO) 37.3 % (45.0-75.0); PLATELET COUNT 133 K/UL (150-450); WHITE BLOOD COUNT 5.3 K/UL (4.8-10.8)
[2018-09-19 07:37] LABS: ALANINE AMINOTRANSFERASE 15 U/L (12-78); ALBUMIN 1.4 G/DL (3.4-5.0); ALBUMIN/GLOBULIN RATIO 0.3 (1.0-2.7); ALKALINE PHOSPHATASE 105 U/L (46-116); ANION GAP 3 mmol/L (5-15); ASPARTATE AMINO TRANSFERASE 34 U/L (15-37); BILIRUBIN,TOTAL 1.2 MG/DL (0.2-1.0); BLOOD UREA NITROGEN 7 mg/dL (7-18); CALCIUM 7.4 MG/DL (8.5-10.1); CARBON DIOXIDE 29 MMOL/L (21-32); CHLORIDE 106 MMOL/L (98-107); CREATININE 0.9 MG/DL (0.55-1.30); PHOSPHORUS 3.6 MG/DL (2.5-4.9); POTASSIUM 3.4 MMOL/L (3.5-5.1); SODIUM 138 MMOL/L (136-145)
[2018-09-19 07:38] LABS: BILIRUBIN,DIRECT 0.7 MG/DL (0.0-0.3)
--- NOTE | 2018-09-19 07:45 | NUR ---
NURSE NOTES: received report from MOISES Anderson. patient in bed. alert. verbally responsive. no respiratory distress noted. no c/o pain at this time. fluid from paracentesis still noted. draining to bag. clear yellow no blood noted. IV on RAC intact. bed in the lowest position. call light within reach. will continue to monitor.
[2018-09-19 08:00] VITALS: BP 89/55
[2018-09-19] MEDS: Heparin 5000 units/ml inj SUBQ SCH ×2 (08:31→21:00)
[2018-09-19] MEDS: Furosemide 40mg tab ORAL SCH (08:31)
[2018-09-19] MEDS: Spironolactone 50mg tab ORAL SCH ×2 (09:00→21:00)
[2018-09-19] MEDS: Thiamine 100mg tab ORAL SCH (09:00)
[2018-09-19] MEDS: Lactulose 20gm/30ml UDC ORAL SCH ×3 (09:00→17:37)
--- NOTE | 2018-09-19 11:22 | GI Progress Note ---
Assessment/Plan Problems: (1) Cirrhosis ICD Codes: K74.60 - Unspecified cirrhosis of liver SNOMED: 01776125 Qualifiers: Qualified Codes: K70.31 - Alcoholic cirrhosis of liver with ascites (2) Coagulopathy ICD Codes: D68.9 - Coagulation defect, unspecified SNOMED: 78341149 (3) Ascites ICD Codes: R18.8 - Other ascites SNOMED: 301233923 Qualifiers: Qualified Codes: K70.31 - Alcoholic cirrhosis of liver with ascites (4) Abdominal pain ICD Codes: R10.9 - Unspecified abdominal pain SNOMED: 41197046 Qualifiers: Qualified Codes: R10.84 - Generalized abdominal pain Status: stable, unchanged Status Narrative Discussed with Dr. Govea. Assessment/Plan Status post paracentesis yielding approximately 9400 cc -Ascites continues to leak Hepatitis panel pending Replace albumin prn Lasix and Aldactone Lactulose plus Xifaxan Patient may benefit from a upper endoscopy as an outpatient Avoid alcohol Advance to low-sodium diet Electrolyte correction Follow labs, hepatitis panel The patient was seen and examined at bedside and all new and available data was reviewed in the patients chart. I agree with the above findings, impression and plan. (Patient seen earlier today. Signature stamp does not reflect patient encounter time.). - oLs Govea MD Subjective Subjective Abdominal distention improved Abdominal discomfort improved Complaint of abdominal tenderness Objective Last 24 Hour Vital Signs Date Time Temp Pulse Resp B/P (MAP) Pulse Ox O2 Delivery O2 Flow Rate FiO2 09/19/18 09:00 80 89/55 09/19/18 08:00 97.6 80 16 89/55 (66) 98 09/19/18 04:14 98.8 83 16 101/53 (69) 97 09/18/18 23:45 98.7 88 17 96/57 (70) 98 09/18/18 21:17 99.3 09/18/18 20:49 Room Air 09/18/18 20:48 85 94/55 09/18/18 20:00 99.3 85 19 94/55 (68) 98 09/18/18 16:00 98.4 80 21 91/49 (63) 99 09/18/18 12:00 97.3 80 21 93/48 (63) Intake and Output 09/18/18 09/19/18 19:00 07:00 Intake Total 480 ml 240 ml Output Total 400 ml 500 ml Balance 80 ml -260 ml Intake Oral 480 ml 240 ml Output Urine Total 200 ml Other 400 ml 300 ml # Voids 1 1 # Bowel Movements 1 Laboratory Tests Test 09/19/18 05:15 White Blood Count 5.3 K/UL (4.8-10.8) Red Blood Count 3.00 M/UL (4.70-6.10) L Hemoglobin 10.1 G/DL (14.2-18.0) L Hematocrit 30.1 % (42.0-52.0) L Mean Corpuscular Volume 101 FL (80-99) H Mean Corpuscular Hemoglobin 33.7 PG (27.0-31.0) H Mean Corpuscular Hemoglobin Concent 33.5 G/DL (32.0-36.0) Red Cell Distribution Width 12.0 % (11.6-14.8) Platelet Count 133 K/UL (150-450) L Mean Platelet Volume 6.2 FL (6.5-10.1) L Neutrophils (%) (Auto) 37.3 % (45.0-75.0) L Lymphocytes (%) (Auto) 36.8 % (20.0-45.0) Monocytes (%) (Auto) 16.4 % (1.0-10.0) H Eosinophils (%) (Auto) 8.4 % (0.0-3.0) H Basophils (%) (Auto) 1.1 % (0.0-2.0) Sodium Level 138 MMOL/L (136-145) Potassium Level 3.4 MMOL/L (3.5-5.1) L Chloride Level 106 MMOL/L (98-107) Carbon Dioxide Level 29 MMOL/L (21-32) Anion Gap 3 mmol/L (5-15) L Blood Urea Nitrogen 7 mg/dL (7-18) Creatinine 0.9 MG/DL (0.55-1.30) Estimat Glomerular Filtration Rate > 60 mL/min (>60) Glucose Level 90 MG/DL (74-106) Calcium Level 7.4 MG/DL (8.5-10.1) L Phosphorus Level 3.6 MG/DL (2.5-4.9) Magnesium Level 1.3 MG/DL (1.8-2.4) L Total Bilirubin 1.2 MG/DL (0.2-1.0) H Direct Bilirubin 0.7 MG/DL (0.0-0.3) H Aspartate Amino Transf (AST/SGOT) 34 U/L (15-37) Alanine Aminotransferase (ALT/SGPT) 15 U/L (12-78) Alkaline Phosphatase 105 U/L (46-116) Total Protein 5.4 G/DL (6.4-8.2) L Albumin 1.4 G/DL (3.4-5.0) L Globulin 4.0 g/dL Albumin/Globulin Ratio 0.3 (1.0-2.7) L Height (Feet): 6 Height (Inches): 3.00 Weight (Pounds): 236 General Appearance: WD/WN, no apparent distress, alert Cardiovascular: normal rate Respiratory/Chest: normal breath sounds, no respiratory distress Abdominal Exam: normal bowel sounds, non tender, soft Extremities: normal range of motion, non-tender Shari Mistry NP Sep 19, 2018 11:22
--- NOTE | 2018-09-19 11:40 | General Progress Note ---
Assessment/Plan Status: stable Assessment/Plan #Decompensated cirrhosis #abdominal pain #Ascites #LLE swelling -s/p diagnostic paracentesis in ED without evidence for SBP -s/p therapeutic paracentesis with 10 liters removed and another 700 ml spontaneous drainage -S/p albumin infusion -GI following -hold furosemide/spironolactone due to borderline low pressues -pain control/IV antiemetics as needed -check LLE US to rule out DVT #anemia, macrocytic -No signs for GI bleed -continue to monitor closely -check B12, folate, TSH, iron studies, ferritin #HTN cont labetalol #Transaminitis #Elevated bilirubin -likely secondary to cirrhosis -GI recs appreciated- will need hepatitis panel to elucidate etiology of cirrhosis although likely alcoholic DVT Prophylaxis: SCD's, heparin Code Status: Full Disposition: Once the patient is stable to leave the hospital, I anticipate the patient will likely be discharged to the following environment:Home I spent 45 minutes on this patient's case, and 24 minutes was dedicated to counseling and/or care coordination. Time of note may not reflect time of encounter. Subjective Date patient seen: Sep 19, 2018 Time patient seen: 10:25 ROS Limited/Unobtainable: No Constitutional: Denies: chills, fever Cardiovascular: Denies: chest pain Respiratory: Denies: cough Gastrointestinal/Abdominal: Denies: abdomen distended, abdominal pain Genitourinary: Denies: burning Allergies: Coded Allergies: No Known Allergies (Unverified , 07/22/18) Subjective Medicine follow up for cirrhosis and ascites. Underwent therapeutic paracentesis with 10 liters removed. 700 ml of spontaneous drainage from the paracentesis site. Reports LLE edema and pain Objective Last 24 Hour Vital Signs Date Time Temp Pulse Resp B/P (MAP) Pulse Ox O2 Delivery O2 Flow Rate FiO2 09/19/18 09:00 80 89/55 09/19/18 08:00 97.6 80 16 89/55 (66) 98 09/19/18 04:14 98.8 83 16 101/53 (69) 97 09/18/18 23:45 98.7 88 17 96/57 (70) 98 09/18/18 21:17 99.3 09/18/18 20:49 Room Air 09/18/18 20:48 85 94/55 09/18/18 20:00 99.3 85 19 94/55 (68) 98 09/18/18 16:00 98.4 80 21 91/49 (63) 99 09/18/18 12:00 97.3 80 21 93/48 (63) Intake and Output 09/18/18 09/19/18 19:00 07:00 Intake Total 480 ml 240 ml Output Total 400 ml 500 ml Balance 80 ml -260 ml Intake Oral 480 ml 240 ml Output Urine Total 200 ml Other 400 ml 300 ml # Voids 1 1 # Bowel Movements 1 Laboratory Tests 09/19/18 05:15: White Blood Count 5.3, Red Blood Count 3.00L, Hemoglobin 10.1L, Hematocrit 30.1L , Mean Corpuscular Volume 101H, Mean Corpuscular Hemoglobin 33.7H, Mean Corpuscular Hemoglobin Concent 33.5, Red Cell Distribution Width 12.0, Platelet Count 133L, Mean Platelet Volume 6.2L, Neutrophils (%) (Auto) 37.3L, Lymphocytes (%) (Auto) 36.8, Monocytes (%) (Auto) 16.4H, Eosinophils (%) (Auto) 8.4H, Basophils (%) (Auto) 1.1, Sodium Level 138, Potassium Level 3.4L, Chloride Level 106, Carbon Dioxide Level 29, Anion Gap 3L, Blood Urea Nitrogen 7 , Creatinine 0.9, Estimat Glomerular Filtration Rate > 60, Glucose Level 90, Calcium Level 7.4L, Phosphorus Level 3.6, Magnesium Level 1.3L, Total Bilirubin 1.2H, Direct Bilirubin 0.7H, Aspartate Amino Transf (AST/SGOT) 34, Alanine Aminotransferase (ALT/SGPT) 15, Alkaline Phosphatase 105, Total Protein 5.4L, Albumin 1.4L, Globulin 4.0, Albumin/Globulin Ratio 0.3L Height (Feet): 6 Height (Inches): 3.00 Weight (Pounds): 236 Kurtis Mensah MD Sep 19, 2018 11:40
[2018-09-19 12:00] VITALS: BP 97/57
--- NOTE | 2018-09-19 14:10 | NUR ---
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 CIRRHOSIS . RIGHT LOWER LOBE CONSOLIDATION VS ATELECTASIS VS: BP 89/55, P 72, T 96.4, RR 18, SpO2 98 RBC 3.00, Hgb 10.1, Hct 30.1, K 3.4, Ca 7.4 IS:ALBUMIN HUMAN 50ml IV MAGNESIUM SULFATE 100ml IVPB K-DUR 40meq RIFAXIMIN 550mg LACTULOSE 30gm PROTONIX 40mg ALDACTONE 50mg MED/SURG STATUS
[2018-09-19 16:00] VITALS: BP 96/58
--- NOTE | 2018-09-19 17:24 | Consultation ---
History of Present Illness General Chief Complaint: Abdominal Pain Present Illness Allergies: Coded Allergies: No Known Allergies (Unverified , 07/22/18) Medication History Scheduled Folic Acid* (Folic Acid*), 1 MG ORAL DAILY, (Reported) Furosemide* (Lasix*), 40 MG ORAL DAILY, (Reported) Furosemide* (Lasix*), 20 MG ORAL DAILY, (Reported) Labetalol Hcl* (Normodyne*), 100 MG ORAL BID, (Reported) Pantoprazole* (Protonix*), 40 MG ORAL DAILY Spironolactone* (Aldactone*), 50 MG ORAL BID Thiamine Hcl* (Vitamin B-1*), 100 MG ORAL DAILY, (Reported) Scheduled PRN Oxycodone Hcl* (Oxycodone Hcl*), 5 MG ORAL Q6H PRN for For Pain Patient History Healthcare decision maker N Resuscitation status Full Code Advanced Directive on File Physical Exam Last 24 Hour Vital Signs Date Time Temp Pulse Resp B/P (MAP) Pulse Ox O2 Delivery O2 Flow Rate FiO2 09/19/18 16:00 98.1 70 18 96/58 (71) 99 09/19/18 12:33 Room Air 09/19/18 12:00 96.4 72 18 97/57 (70) 98 09/19/18 09:00 80 89/55 09/19/18 09:00 Room Air 09/19/18 08:00 97.6 80 16 89/55 (66) 98 09/19/18 04:14 98.8 83 16 101/53 (69) 97 09/18/18 23:45 98.7 88 17 96/57 (70) 98 09/18/18 21:17 99.3 09/18/18 20:49 Room Air 09/18/18 20:48 85 94/55 09/18/18 20:00 99.3 85 19 94/55 (68) 98 Intake and Output 09/18/18 09/19/18 19:00 07:00 Intake Total 480 ml 240 ml Output Total 400 ml 500 ml Balance 80 ml -260 ml Intake Oral 480 ml 240 ml Output Urine Total 200 ml Other 400 ml 300 ml # Voids 1 1 # Bowel Movements 1 Laboratory Tests Test 09/19/18 05:15 White Blood Count 5.3 K/UL (4.8-10.8) Red Blood Count 3.00 M/UL (4.70-6.10) L Hemoglobin 10.1 G/DL (14.2-18.0) L Hematocrit 30.1 % (42.0-52.0) L Mean Corpuscular Volume 101 FL (80-99) H Mean Corpuscular Hemoglobin 33.7 PG (27.0-31.0) H Mean Corpuscular Hemoglobin Concent 33.5 G/DL (32.0-36.0) Red Cell Distribution Width 12.0 % (11.6-14.8) Platelet Count 133 K/UL (150-450) L Mean Platelet Volume 6.2 FL (6.5-10.1) L Neutrophils (%) (Auto) 37.3 % (45.0-75.0) L Lymphocytes (%) (Auto) 36.8 % (20.0-45.0) Monocytes (%) (Auto) 16.4 % (1.0-10.0) H Eosinophils (%) (Auto) 8.4 % (0.0-3.0) H Basophils (%) (Auto) 1.1 % (0.0-2.0) Sodium Level 138 MMOL/L (136-145) Potassium Level 3.4 MMOL/L (3.5-5.1) L Chloride Level 106 MMOL/L (98-107) Carbon Dioxide Level 29 MMOL/L (21-32) Anion Gap 3 mmol/L (5-15) L Blood Urea Nitrogen 7 mg/dL (7-18) Creatinine 0.9 MG/DL (0.55-1.30) Estimat Glomerular Filtration Rate > 60 mL/min (>60) Glucose Level 90 MG/DL (74-106) Calcium Level 7.4 MG/DL (8.5-10.1) L Phosphorus Level 3.6 MG/DL (2.5-4.9) Magnesium Level 1.3 MG/DL (1.8-2.4) L Total Bilirubin 1.2 MG/DL (0.2-1.0) H Direct Bilirubin 0.7 MG/DL (0.0-0.3) H Aspartate Amino Transf (AST/SGOT) 34 U/L (15-37) Alanine Aminotransferase (ALT/SGPT) 15 U/L (12-78) Alkaline Phosphatase 105 U/L (46-116) Total Protein 5.4 G/DL (6.4-8.2) L Albumin 1.4 G/DL (3.4-5.0) L Globulin 4.0 g/dL Albumin/Globulin Ratio 0.3 (1.0-2.7) L Height (Feet): 6 Height (Inches): 3.00 Weight (Pounds): 236 Medications Current Medications Medications (Trade) Dose Ordered Sig/Jm Route PRN Reason Start Time Stop Time Status Last Admin Dose Admin Folic Acid (Folate) 1 mg DAILY ORAL 09/16/18 09:00 10/16/18 08:59 09/19/18 09:00 Furosemide (Lasix) 40 mg DAILY ORAL 09/16/18 09:00 10/16/18 08:59 09/18/18 08:54 Heparin Sodium (Porcine) (Heparin 5000 units/ml) 5,000 units EVERY 12 HOURS SUBQ 09/15/18 21:00 10/15/18 20:59 09/17/18 20:28 Labetalol HCl (Normodyne) 100 mg Q12HR ORAL 09/15/18 21:00 10/15/18 20:59 09/18/18 08:57 Lactulose (Cephulac) 30 gm THREE TIMES A DAY ORAL 09/17/18 13:00 10/17/18 12:59 09/19/18 12:30 Oxycodone/ Acetaminophen (Percocet 5-325) 1 tab Q6H PRN ORAL For Pain 09/16/18 09:30 09/23/18 09:29 09/18/18 20:47 Pantoprazole (Protonix) 40 mg DAILY ORAL 09/16/18 09:00 10/16/18 08:59 09/19/18 09:00 Rifaximin (Xifaxan) 550 mg EVERY 12 HOURS ORAL 09/17/18 21:00 09/24/18 20:59 09/19/18 09:00 Spironolactone (Aldactone) 50 mg EVERY 12 HOURS ORAL 09/15/18 21:00 10/15/18 20:59 09/19/18 09:00 Thiamine HCl (Vitamin B1) 100 mg DAILY ORAL 09/16/18 09:00 10/16/18 08:59 09/19/18 09:00 Assessment/Plan Assessment/Plan Hematology Consultation Note REQ MD: Mary Delaney DOS: 09/19/18 RFC: Coagulopathy, Pancytopenia Reason for Hospitalization: Abdominal Pain HPI CC: increased abdominal pain and distention. ID 48 yo man with history of recently diagnosed cirrhosis s/p paracentesis several weeks ago as an outpatient here at [facility] returns with abdominal pain and swelling. He states he has felt chills but has not documented a fever. The pain is significant and is abdomen diffusely. Does not radiate. He denies any dysuria. This feels somewhat similar to when he had his ascites before but the pain is sharper at this time. The pain is rated 9/10 in pressure and aching somewhat sharp. The patient has a history of cirrhosis. He denies confusion. His daughters oversee his care. There is no nausea, vomiting, diarrhea, melena. Patient has easy bruising. There is no trauma. He denies alcohol use recently. In the ED, a diagnostic paracentesis was performed and IV antibiotics started. Patient was admitted for symptom control, 9.4L of fluid were removed PMHX; As per HPI HTN SHx: History of EtOH abuse in past, none recently No tobacco FHx:Reviewed by me; not pertinent for this encounter Coded Allergies: No Known Allergies (Unverified , 07/22/18) Medication History Scheduled Folic Acid* (Folic Acid*), 1 MG ORAL DAILY, (Reported) Furosemide* (Lasix*), 40 MG ORAL DAILY, (Reported) Furosemide* (Lasix*), 20 MG ORAL DAILY, (Reported) Labetalol Hcl* (Normodyne*), 100 MG ORAL BID, (Reported) Pantoprazole* (Protonix*), 40 MG ORAL DAILY Spironolactone* (Aldactone*), 50 MG ORAL BID Thiamine Hcl* (Vitamin B-1*), 100 MG ORAL DAILY, (Reported) Scheduled PRN Oxycodone Hcl* (Oxycodone Hcl*), 5 MG ORAL Q6H PRN for For Pain Patient History Limited by: language barrier History Provided By: Patient, Medical Record, Caregiver Healthcare decision maker N Resuscitation status Full Code Advanced Directive on File ROS: Constitutional: Reports: malaise, weakness Eye: Reports: no symptoms Respiratory: Reports: no symptoms Cardiovascular: Reports: no symptoms Gastrointestinal: Reports: abdominal pain, nausea Genitourinary: Reports: no symptoms Musculoskeletal: Reports: no symptoms Psychiatric: Reports: no symptoms Neurological: Reports: no symptoms Endocrine: Reports: no symptoms Hematologic/Lymphatic: Reports: no symptoms All Other Systems: negative except mentioned in HPI PE Vitals: reviewed, stable General Appearance: NAD HEENT: normocephalic, atraumatic Neck: non-tender, normal alignment Respiratory/Chest: nromal breath sounds bilaterally Cardiovascular/Chest: normal peripheral pulses, normal rate Abdomen: normal bowel sounds, soft, nontender ++ ascites Extremities: normal range of motion Last 24 Hour Vital Signs Date Time Temp Pulse Resp B/P (MAP) Pulse Ox O2 Delivery O2 Flow Rate FiO2 09/15/18 16:06 Room Air 09/15/18 15:42 98.0 68 20 120/71 (87) 97 09/15/18 15:34 98.1 78 16 108/72 98 Room Air 21 09/15/18 13:27 98.1 78 16 108/72 98 Room Air 21 09/15/18 13:16 98.1 09/15/18 11:58 98.1 69 15 109/63 100 Room Air 21 09/15/18 11:15 83 18 09/15/18 10:45 98.1 83 18 110/74 96 Laboratory Tests Test 09/15/18 11:10 09/15/18 13:03 09/15/18 14:00 White Blood Count 7.1 K/UL (4.8-10.8) Red Blood Count 3.31 M/UL (4.70-6.10) L Hemoglobin 11.4 G/DL (14.2-18.0) L Hematocrit 33.3 % (42.0-52.0) L Mean Corpuscular Volume 101 FL (80-99) H Mean Corpuscular Hemoglobin 34.4 PG (27.0-31.0) H Mean Corpuscular Hemoglobin Concent 34.2 G/DL (32.0-36.0) Red Cell Distribution Width 12.4 % (11.6-14.8) Platelet Count 165 K/UL (150-450) Mean Platelet Volume 5.7 FL (6.5-10.1) L Neutrophils (%) (Auto) 42.2 % (45.0-75.0) L Lymphocytes (%) (Auto) 27.6 % (20.0-45.0) Monocytes (%) (Auto) 17.2 % (1.0-10.0) H Eosinophils (%) (Auto) 11.4 % (0.0-3.0) H Basophils (%) (Auto) 1.6 % (0.0-2.0) Prothrombin Time 14.2 SEC (9.30-11.50) H Prothromb Time International Ratio 1.4 (0.9-1.1) H Activated Partial Thromboplast Time 30 SEC (23-33) Sodium Level 138 MMOL/L (136-145) Potassium Level 4.0 MMOL/L (3.5-5.1) Chloride Level 105 MMOL/L (98-107) Carbon Dioxide Level 30 MMOL/L (21-32) Anion Gap 3 mmol/L (5-15) L Blood Urea Nitrogen 8 mg/dL (7-18) Creatinine 0.9 MG/DL (0.55-1.30) Estimat Glomerular Filtration Rate > 60 mL/min (>60) Glucose Level 79 MG/DL (74-106) Lactic Acid Level 1.60 mmol/L (0.4-2.0) Calcium Level 8.1 MG/DL (8.5-10.1) L Total Bilirubin 2.2 MG/DL (0.2-1.0) H Direct Bilirubin 1.4 MG/DL (0.0-0.3) H Aspartate Amino Transf (AST/SGOT) 34 U/L (15-37) Alanine Aminotransferase (ALT/SGPT) 17 U/L (12-78) Alkaline Phosphatase 131 U/L (46-116) H Ammonia 79 umol/L (11-32) H Total Creatine Kinase 45 U/L (26-308) Total Protein 6.8 G/DL (6.4-8.2) Albumin 1.9 G/DL (3.4-5.0) L Globulin 4.9 g/dL Albumin/Globulin Ratio 0.4 (1.0-2.7) L Lipase 118 U/L (73-393) Urine Color Pale yellow Urine Appearance Clear Urine pH 7 (4.5-8.0) Urine Specific [place] 1.005 (1.005-1.035) Urine Protein Negative (NEGATIVE) Urine Glucose (UA) Negative (NEGATIVE) Urine Ketones Negative (NEGATIVE) Urine Blood Negative (NEGATIVE) Urine Nitrite Negative (NEGATIVE) Urine Bilirubin Negative (NEGATIVE) Urine Urobilinogen 1 MG/DL (0.0-1.0) H Urine Leukocyte Esterase Negative (NEGATIVE) Body Fluid Source Paracentesis Body Fluid Volume 3 mL Body Fluid Appearance Clear (Clear) Body Fluid RBC 157 /CUMM Body Fluid Total Nucleated Cells 81 /CUMM Body Fluid Polynuclear WBCs (%) 11 % Body Fluid Mononuclear WBCs (%) 78 % Body Fluid Mesothelial Cells (%) 18 % Body Fluid Glucose Pending Body Fluid Total Protein Pending Body Fluid Lactate Dehydrogenase Pending Height (Feet): 6 Height (Inches): 3.00 Weight (Pounds): 235 Medications Current Medications Medications (Trade) Dose Ordered Sig/Jm Route PRN Reason Start Time Stop Time Status Last Admin Dose Admin Folic Acid (Folate) 1 mg DAILY ORAL 09/16/18 09:00 10/16/18 08:59 Furosemide (Lasix) 40 mg DAILY ORAL 09/16/18 09:00 10/16/18 08:59 Heparin Sodium (Porcine) (Heparin 5000 units/ml) 5,000 units EVERY 12 HOURS SUBQ 09/15/18 21:00 10/15/18 20:59 Labetalol HCl (Normodyne) 100 mg Q12HR ORAL 09/15/18 21:00 10/15/18 20:59 Pantoprazole (Protonix) 40 mg DAILY ORAL 09/16/18 09:00 10/16/18 08:59 Spironolactone (Aldactone) 50 mg EVERY 12 HOURS ORAL 09/15/18 21:00 10/15/18 20:59 Thiamine HCl (Vitamin B1) 100 mg DAILY ORAL 09/16/18 09:00 10/16/18 08:59 Assessment/Plan # Pancytopenia -- multiple etiologies very likely related to underlying liver disease, history of cirrhosis, decompensated, accompanied by coagulopathy as well --> peripheral smear has been ordered and does not show significant abnormalities --> Medications have been reviewed --> Continue to monitor for improvement, trend cbc --> Hep panel and HIV have been ordered --> US abd in past revealted cirrhosis, repeat q6mo for liver HCC r/o --> AFP [id number] to r/o HCC as well given this high risk patient --> consider other causes, infections that could contribute --> reverse isolation if ANC is <2000 --> Give neupogen if ANC <1000 --> Transfuse if hgb <7, with 1 unit prbc # Coaguloapathy is related to underlying liver cirrhosis --> vit K administer on prn basis, sq as needed if bleeding, inr 1.4 # Decompensated cirrhosis --> s/p paracentesis # Abdominal pain --> s/p diagnostic paracentesis in ED --> f/u peritoneal fluid analysis to r/o SBP --> IV antibiotics started in ED --> per gi and pain management recs # Transaminitis # Hyperbilirubinemia # HTN The timing of this note does not necessarily reflect the time of the patient was seen. Greatly appreciate consultation! Tate Kelsey MD Sep 19, 2018 17:24
--- NOTE | 2018-09-19 19:36 | NUR ---
HAND-OFF: Report given to Raul.
--- NOTE | 2018-09-19 19:37 | NUR ---
NURSE NOTES: Received patient in no apparent distress. A&OX4. IV site patent and intact. Noted leaking body fluid from right abdomen paracentesis area, drainage bag on, yellowish fluid noted. Bed in lowest position. Call light within reach. Will continue to monitor.
[2018-09-19 20:00] VITALS: BP 98/50
[2018-09-20] VITALS: BP 92/58
[2018-09-20 04:00] VITALS: BP 90/57
[2018-09-20 06:59] LABS: BASOPHILS % (AUTO) 1.2 % (0.0-2.0); EOSINOPHILS % (AUTO) 9.3 % (0.0-3.0); HEMATOCRIT 32.2 % (42.0-52.0); HEMOGLOBIN 10.7 G/DL (14.2-18.0); LYMPHOCYTES % (AUTO) 30.8 % (20.0-45.0); MEAN CORPUSCULAR VOLUME 101 FL (80-99); MONOCYTES % (AUTO) 14.9 % (1.0-10.0); NEUTROPHILS % (AUTO) 43.7 % (45.0-75.0); PLATELET COUNT 139 K/UL (150-450); RED BLOOD COUNT 3.18 M/UL (4.70-6.10); WHITE BLOOD COUNT 5.2 K/UL (4.8-10.8)
[2018-09-20 07:18] LABS: PHOSPHORUS 2.9 MG/DL (2.5-4.9)
--- NOTE | 2018-09-20 07:30 | NUR ---
HAND-OFF: Report given to Mary Jane DE LEON.
--- NOTE | 2018-09-20 07:58 | NUR ---
NURSE NOTES: Patient received in stable condition, resting in bed. Breathing unlabored on room air. Denies pain or distress at this time. Alert and oriented, responds appropriately. Urinal by the bedside. Drainage to right abdomen for drainage, connected to walker catheter bag. Bed locked in lowest position, walker by the bedside. Call light placed within reach. Will continue to monitor.
[2018-09-20 08:00] VITALS: BP 105/56
[2018-09-20] MEDS: Spironolactone 50mg tab ORAL SCH ×2 (09:00→20:49)
[2018-09-20] MEDS: Heparin 5000 units/ml inj SUBQ SCH ×2 (09:00→20:49)
[2018-09-20] MEDS: Thiamine 100mg tab ORAL SCH (09:22)
[2018-09-20] MEDS: Lactulose 20gm/30ml UDC ORAL SCH ×3 (09:22→17:46)
[2018-09-20] MEDS: Furosemide 40mg tab ORAL SCH (09:25)
--- NOTE | 2018-09-20 10:03 | NUR ---
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 CIRRHOSIS . RIGHT LOWER LOBE CONSOLIDATION VS ATELECTASIS VS: BP 90/57, P 84, T 97.4, RR 18, SpO2 94 RBC 3.18, Hgb 3.18, Hct 32.2, Mag 1.6 IS: RIFAXIMIN 550mg LACTULOSE 30gm LASIX 40mg PROTONIX 40mg MED/SURG STATUS
--- NOTE | 2018-09-20 10:43 | GI Progress Note ---
Assessment/Plan Problems: (1) Cirrhosis ICD Codes: K74.60 - Unspecified cirrhosis of liver SNOMED: 56169377 Qualifiers: Qualified Codes: K70.31 - Alcoholic cirrhosis of liver with ascites (2) Coagulopathy ICD Codes: D68.9 - Coagulation defect, unspecified SNOMED: 47065525 (3) Ascites ICD Codes: R18.8 - Other ascites SNOMED: 623964986 Qualifiers: Qualified Codes: K70.31 - Alcoholic cirrhosis of liver with ascites (4) Abdominal pain ICD Codes: R10.9 - Unspecified abdominal pain SNOMED: 82841219 Qualifiers: Qualified Codes: R10.84 - Generalized abdominal pain Status: stable, unchanged Status Narrative Discussed with Dr. Govea Assessment/Plan Negative status post paracentesis yielding approximately 9400 cc -Ascites continues to leak Hepatitis panel negative Low-sodium diet Occult blood stool to rule out GI bleed Patient may benefit from a upper endoscopy as an outpatient Replace albumin prn Lasix and Aldactone Lactulose plus Xifaxan Avoid alcohol Electrolyte correction Follow labs The patient was seen and examined at bedside and all new and available data was reviewed in the patients chart. I agree with the above findings, impression and plan. (Patient seen earlier today. Signature stamp does not reflect patient encounter time.). - Los Govea MD Subjective Subjective Abdominal distention improved Abdominal discomfort improved Complaint of abdominal tenderness Objective Last 24 Hour Vital Signs Date Time Temp Pulse Resp B/P (MAP) Pulse Ox O2 Delivery O2 Flow Rate FiO2 09/20/18 09:00 84 90/57 09/20/18 04:00 98.4 84 18 90/57 (68) 95 09/20/18 00:00 98.6 80 18 92/58 (69) 96 09/19/18 21:00 Room Air 09/19/18 21:00 82 98/50 09/19/18 20:00 97.4 82 18 98/50 (66) 94 09/19/18 16:00 98.1 70 18 96/58 (71) 99 09/19/18 12:33 Room Air 09/19/18 12:00 96.4 72 18 97/57 (70) 98 Intake and Output 09/19/18 09/20/18 19:00 07:00 Intake Total 1200 ml Output Total 900 ml 1700 ml Balance 300 ml -1700 ml IV Total 250 ml Other 950 ml Output Urine Total 900 ml 850 ml Other 850 ml # Voids 2 Laboratory Tests Test 09/20/18 05:10 White Blood Count 5.2 K/UL (4.8-10.8) Red Blood Count 3.18 M/UL (4.70-6.10) L Hemoglobin 10.7 G/DL (14.2-18.0) L Hematocrit 32.2 % (42.0-52.0) L Mean Corpuscular Volume 101 FL (80-99) H Mean Corpuscular Hemoglobin 33.5 PG (27.0-31.0) H Mean Corpuscular Hemoglobin Concent 33.2 G/DL (32.0-36.0) Red Cell Distribution Width 12.0 % (11.6-14.8) Platelet Count 139 K/UL (150-450) L Mean Platelet Volume 6.2 FL (6.5-10.1) L Neutrophils (%) (Auto) 43.7 % (45.0-75.0) L Lymphocytes (%) (Auto) 30.8 % (20.0-45.0) Monocytes (%) (Auto) 14.9 % (1.0-10.0) H Eosinophils (%) (Auto) 9.3 % (0.0-3.0) H Basophils (%) (Auto) 1.2 % (0.0-2.0) Phosphorus Level 2.9 MG/DL (2.5-4.9) Magnesium Level 1.6 MG/DL (1.8-2.4) L C-Reactive Protein, Quantitative 1.0 mg/dL (0.00-0.90) H Height (Feet): 6 Height (Inches): 3.00 Weight (Pounds): 236 General Appearance: WD/WN, no apparent distress, alert Cardiovascular: normal rate Respiratory/Chest: normal breath sounds, no respiratory distress Abdominal Exam: normal bowel sounds, non tender, soft, ascites Extremities: normal range of motion, non-tender Shari Mistry NP Sep 20, 2018 10:43
[2018-09-20 12:00] VITALS: BP 111/68
--- NOTE | 2018-09-20 12:43 | Diagnostic Imaging Report ---
APPROVED REPORT CPT Code: 58319 Present Symptoms Comments: LEFT LEG PAIN AND SWELLING. LEFT LEG: Venous imaging reveals a patent deep venous system. There is no evidence of thrombus within the femoral, popliteal or tibial segments. The greater saphenous vein is also within normal limits. Doppler indicates normal spontaneous flow within these segments.
[2018-09-20] MEDS ORDERED: Potassium Phosphate 30 MM in NS 275 ML IV SCH (13:00)
--- NOTE | 2018-09-20 14:49 | General Progress Note ---
Assessment/Plan Assessment/Plan #Decompensated cirrhosis #abdominal pain #Ascites #LLE swelling -s/p diagnostic paracentesis in ED without evidence for SBP -s/p therapeutic paracentesis with 10 liters removed and another 700 ml spontaneous drainage -S/p albumin infusion -GI following -resume furosemide/spironolactone -pain control/IV antiemetics as needed -check LLE US to rule out DVT #anemia, macrocytic -No signs for GI bleed -continue to monitor closely -check B12, folate, TSH, iron studies, ferritin -hematology following #HTN cont labetalol #Transaminitis #Elevated bilirubin -likely secondary to cirrhosis -GI recs appreciated- will need hepatitis panel to elucidate etiology of cirrhosis although likely alcoholic DVT Prophylaxis: SCD's, heparin Code Status: Folding Machine Setter of note may not reflect time of encounter. Subjective Date patient seen: Sep 20, 2018 Time patient seen: 12:25 Constitutional: Denies: chills, fever Cardiovascular: Reports: edema; Denies: chest pain Respiratory: Denies: cough, orthopnea Gastrointestinal/Abdominal: Denies: abdomen distended Allergies: Coded Allergies: No Known Allergies (Unverified , 07/22/18) Subjective Medicine follow up for cirrhosis and ascites. Underwent therapeutic paracentesis with 10 liters removed. Scant drainage from paracentesis site, mild pain abdominal reported Objective Last 24 Hour Vital Signs Date Time Temp Pulse Resp B/P (MAP) Pulse Ox O2 Delivery O2 Flow Rate FiO2 09/20/18 12:00 98.9 82 20 111/68 (82) 98 09/20/18 09:00 Room Air 09/20/18 09:00 84 90/57 09/20/18 08:00 98.5 79 17 105/56 (72) 99 09/20/18 04:00 98.4 84 18 90/57 (68) 95 09/20/18 00:00 98.6 80 18 92/58 (69) 96 09/19/18 21:00 Room Air 09/19/18 21:00 82 98/50 09/19/18 20:00 97.4 82 18 98/50 (66) 94 09/19/18 16:00 98.1 70 18 96/58 (71) 99 Intake and Output 09/19/18 09/20/18 19:00 07:00 Intake Total 1200 ml Output Total 900 ml 1700 ml Balance 300 ml -1700 ml IV Total 250 ml Other 950 ml Output Urine Total 900 ml 850 ml Other 850 ml # Voids 2 Laboratory Tests 09/20/18 05:10: White Blood Count 5.2, Red Blood Count 3.18L, Hemoglobin 10.7L, Hematocrit 32.2L , Mean Corpuscular Volume 101H, Mean Corpuscular Hemoglobin 33.5H, Mean Corpuscular Hemoglobin Concent 33.2, Red Cell Distribution Width 12.0, Platelet Count 139L, Mean Platelet Volume 6.2L, Neutrophils (%) (Auto) 43.7L, Lymphocytes (%) (Auto) 30.8, Monocytes (%) (Auto) 14.9H, Eosinophils (%) (Auto) 9.3H, Basophils (%) (Auto) 1.2, Phosphorus Level 2.9, Magnesium Level 1.6L, C- Reactive Protein, Quantitative 1.0H Height (Feet): 6 Height (Inches): 3.00 Weight (Pounds): 236 General Appearance: no apparent distress, alert Neck: normal alignment, supple Cardiovascular: normal rate, regular rhythm Respiratory/Chest: lungs clear, normal breath sounds Abdomen: normal bowel sounds, non tender, soft, no organomegaly Kurtis Mensah MD Sep 20, 2018 14:49
[2018-09-20 16:00] VITALS: BP 95/55
[2018-09-20] MEDS: oxyCODONE HCL/Acetaminophen 5/325mg ORAL PRN (17:47)
--- NOTE | 2018-09-20 17:50 | General Progress Note ---
Assessment/Plan Assessment/Plan Assessment/Plan # Pancytopenia -- multiple etiologies very likely related to underlying liver disease, history of cirrhosis, decompensated, accompanied by coagulopathy as well --> peripheral smear has been ordered and does not show significant abnormalities --> Medications have been reviewed --> Continue to monitor for improvement, trend cbc --> Hep panel and HIV have been ordered --> US abd in past revealted cirrhosis, repeat q6mo for liver HCC r/o --> AFP [id number] to r/o HCC as well given this high risk patient --> consider other causes, infections that could contribute --> reverse isolation if ANC is <2000 --> Give neupogen if ANC <1000 --> Transfuse if hgb <7, with 1 unit prbc # Coaguloapathy is related to underlying liver cirrhosis --> vit K administer on prn basis, sq as needed if bleeding, inr 1.4 --> currently w/o bleeding # Decompensated cirrhosis --> s/p paracentesis # Abdominal pain --> s/p diagnostic paracentesis in ED --> f/u peritoneal fluid analysis to r/o SBP --> IV antibiotics started in ED --> per gi and pain management recs # Transaminitis # Hyperbilirubinemia # HTN The timing of this note does not necessarily reflect the time of the patient was seen. Greatly appreciate consultation! Subjective Constitutional: Denies: no symptoms, chills, diaphoresis, fever, malaise, weakness, other Cardiovascular: Denies: no symptoms, chest pain, edema, irregular heart rate, lightheadedness, palpitations, syncope, other Respiratory: Denies: no symptoms, cough, orthopnea, shortness of breath, SOB with excertion, SOB at rest, sputum, stridor, wheezing, other Gastrointestinal/Abdominal: Denies: no symptoms, abdomen distended, abdominal pain, black stools, tarry stools, blood in stool, constipated, diarrhea, difficulty swallowing, nausea, poor appetite, poor fluid intake, rectal bleeding , vomiting, other Genitourinary: Denies: no symptoms, burning, discharge, frequency, flank pain, hematuria, incontinence, pain, urgency, other Neurologic/Psychiatric: Denies: no symptoms, anxiety, depressed, emotional problems, headache, numbness, paresthesia, pre-existing deficit, seizure, tingling, tremors, weakness, other Endocrine: Denies: no symptoms, excessive sweating, flushing, intolerance to cold, intolerance to heat, increased hunger, increased thirst, increased urine, unexplained weight gain, unexplained weight loss, other Hematologic/Lymphatic: Denies: no symptoms, anemia, easy bleeding, easy bruising, other Allergies: Coded Allergies: No Known Allergies (Unverified , 07/22/18) Subjective 09/20: no events, mildly worse abdomen today, prn para Objective Last 24 Hour Vital Signs Date Time Temp Pulse Resp B/P (MAP) Pulse Ox O2 Delivery O2 Flow Rate FiO2 09/20/18 12:00 98.9 82 20 111/68 (82) 98 09/20/18 09:00 Room Air 09/20/18 09:00 84 90/57 09/20/18 08:00 98.5 79 17 105/56 (72) 99 09/20/18 04:00 98.4 84 18 90/57 (68) 95 09/20/18 00:00 98.6 80 18 92/58 (69) 96 09/19/18 21:00 Room Air 09/19/18 21:00 82 98/50 09/19/18 20:00 97.4 82 18 98/50 (66) 94 Intake and Output 09/19/18 09/20/18 19:00 07:00 Intake Total 1200 ml Output Total 900 ml 1700 ml Balance 300 ml -1700 ml IV Total 250 ml Other 950 ml Output Urine Total 900 ml 850 ml Other 850 ml # Voids 2 Laboratory Tests 09/20/18 05:10: White Blood Count 5.2, Red Blood Count 3.18L, Hemoglobin 10.7L, Hematocrit 32.2L , Mean Corpuscular Volume 101H, Mean Corpuscular Hemoglobin 33.5H, Mean Corpuscular Hemoglobin Concent 33.2, Red Cell Distribution Width 12.0, Platelet Count 139L, Mean Platelet Volume 6.2L, Neutrophils (%) (Auto) 43.7L, Lymphocytes (%) (Auto) 30.8, Monocytes (%) (Auto) 14.9H, Eosinophils (%) (Auto) 9.3H, Basophils (%) (Auto) 1.2, Phosphorus Level 2.9, Magnesium Level 1.6L, C- Reactive Protein, Quantitative 1.0H 4/11/19 13:30: Stool Occult Blood [Pending] Height (Feet): 6 Height (Inches): 3.00 Weight (Pounds): 236 Objective PE Vitals: reviewed, stable General Appearance: NAD HEENT: normocephalic, atraumatic Neck: non-tender, normal alignment Respiratory/Chest: nromal breath sounds bilaterally Cardiovascular/Chest: normal peripheral pulses, normal rate Abdomen: normal bowel sounds, soft, nontender ++ ascites Extremities: normal range of motion Tate Kelsey MD Sep 20, 2018 17:50
--- NOTE | 2018-09-20 19:31 | NUR ---
HAND-OFF: Report given to Alee DE LEON.
--- NOTE | 2018-09-20 19:32 | NUR ---
NURSE NOTES: Received patient in no apparent distress. A&OX4. IV site patent and intact. Noted dry dressing on right abdomen paracentesis area, dry and intact. Family members are at bedside. Bed in lowest position. Call light within reach. Will continue to monitor.
[2018-09-20 20:00] VITALS: BP 94/54
[2018-09-21] VITALS: BP 92/59
[2018-09-21 04:00] VITALS: BP 96/58
[2018-09-21 06:14] LABS: BASOPHILS % (AUTO) 1.3 % (0.0-2.0); EOSINOPHILS % (AUTO) 9.6 % (0.0-3.0); HEMATOCRIT 32.3 % (42.0-52.0); HEMOGLOBIN 10.7 G/DL (14.2-18.0); LYMPHOCYTES % (AUTO) 24.5 % (20.0-45.0); MEAN CORPUSCULAR VOLUME 101 FL (80-99); MONOCYTES % (AUTO) 15.3 % (1.0-10.0); NEUTROPHILS % (AUTO) 49.3 % (45.0-75.0); PLATELET COUNT 135 K/UL (150-450); RED BLOOD COUNT 3.21 M/UL (4.70-6.10); RED CELL DISTRIBUTION WIDTH 12.2 % (11.6-14.8); WHITE BLOOD COUNT 4.5 K/UL (4.8-10.8)
--- NOTE | 2018-09-21 07:30 | NUR ---
NURSE NOTES: Received pt from [facility]. Pt is alert and orient x4. pt is in RA . No SOB or acute respiratory distress noted. pt has abdominal pad on the paracentesis site and it is wet. Dr sanchez is aware. All needs attended. bed is locked and is in the lowest position. call light within easy reach. will continue to monitor.
--- NOTE | 2018-09-21 07:30 | NUR ---
HAND-OFF: Report given to Edith DE LEON.
[2018-09-21 08:00] VITALS: BP 108/63
[2018-09-21 08:19] LABS: ALANINE AMINOTRANSFERASE 20 U/L (12-78); ALBUMIN 1.6 G/DL (3.4-5.0); ALBUMIN/GLOBULIN RATIO 0.4 (1.0-2.7); ALKALINE PHOSPHATASE 98 U/L (46-116); ANION GAP 6 mmol/L (5-15); ASPARTATE AMINO TRANSFERASE 37 U/L (15-37); BILIRUBIN,TOTAL 1.5 MG/DL (0.2-1.0); BLOOD UREA NITROGEN 8 mg/dL (7-18); CARBON DIOXIDE 26 MMOL/L (21-32); CHLORIDE 106 MMOL/L (98-107); CREATININE 0.9 MG/DL (0.55-1.30); PHOSPHORUS 3.6 MG/DL (2.5-4.9); POTASSIUM 3.9 MMOL/L (3.5-5.1); SODIUM 138 MMOL/L (136-145)
[2018-09-21 08:20] LABS: BILIRUBIN,DIRECT 0.7 MG/DL (0.0-0.3)
[2018-09-21] MEDS: Spironolactone 50mg tab ORAL SCH (08:49)
[2018-09-21] MEDS: Lactulose 20gm/30ml UDC ORAL SCH ×2 (08:49→12:56)
[2018-09-21] MEDS: Furosemide 40mg tab ORAL SCH (08:50)
[2018-09-21] MEDS: Thiamine 100mg tab ORAL SCH (08:50)
[2018-09-21] MEDS: Heparin 5000 units/ml inj SUBQ SCH (08:50)
--- NOTE | 2018-09-21 10:54 | GI Progress Note ---
Assessment/Plan Problems: (1) Cirrhosis ICD Codes: K74.60 - Unspecified cirrhosis of liver SNOMED: 23523122 Qualifiers: Qualified Codes: K70.31 - Alcoholic cirrhosis of liver with ascites (2) Coagulopathy ICD Codes: D68.9 - Coagulation defect, unspecified SNOMED: 90095542 (3) Ascites ICD Codes: R18.8 - Other ascites SNOMED: 334132927 Qualifiers: Qualified Codes: K70.31 - Alcoholic cirrhosis of liver with ascites (4) Abdominal pain ICD Codes: R10.9 - Unspecified abdominal pain SNOMED: 54583998 Qualifiers: Qualified Codes: R10.84 - Generalized abdominal pain Status: unchanged Status Narrative Discussed with Dr. Govea. Assessment/Plan Negative status post paracentesis yielding approximately 9400 cc -Ascites continues to leak Hepatitis panel negative Low-sodium diet Occult blood stool to rule out GI bleed Patient may benefit from a upper endoscopy as an outpatient Replace albumin prn Lasix and Aldactone Lactulose plus Xifaxan Avoid alcohol Electrolyte correction Follow labs The patient was seen and examined at bedside and all new and available data was reviewed in the patients chart. I agree with the above findings, impression and plan. (Patient seen earlier today. Signature stamp does not reflect patient encounter time.). - Los Govea MD Subjective Subjective Abdominal distention improved Abdominal discomfort improved Complaint of abdominal tenderness Objective Last 24 Hour Vital Signs Date Time Temp Pulse Resp B/P (MAP) Pulse Ox O2 Delivery O2 Flow Rate FiO2 09/21/18 08:49 91 108/63 09/21/18 08:00 98.0 91 19 108/63 (78) 97 09/21/18 04:00 97.5 74 19 96/58 (71) 97 09/21/18 00:00 98.2 78 18 92/59 (70) 97 09/20/18 21:00 Room Air 09/20/18 20:49 97 94/54 09/20/18 20:00 99.4 97 17 94/54 (67) 95 09/20/18 16:00 98.7 83 19 95/55 (68) 98 09/20/18 12:00 98.9 82 20 111/68 (82) 98 Intake and Output 09/20/18 09/21/18 19:00 07:00 Intake Total 400 ml Output Total 900 ml Balance -500 ml Intake Oral 400 ml Output Urine Total 900 ml # Voids 2 # Bowel Movements 1 Laboratory Tests Test 09/20/18 13:30 09/21/18 05:05 Stool Occult Blood Pending White Blood Count 4.5 K/UL (4.8-10.8) L Red Blood Count 3.21 M/UL (4.70-6.10) L Hemoglobin 10.7 G/DL (14.2-18.0) L Hematocrit 32.3 % (42.0-52.0) L Mean Corpuscular Volume 101 FL (80-99) H Mean Corpuscular Hemoglobin 33.2 PG (27.0-31.0) H Mean Corpuscular Hemoglobin Concent 33.0 G/DL (32.0-36.0) Red Cell Distribution Width 12.2 % (11.6-14.8) Platelet Count 135 K/UL (150-450) L Mean Platelet Volume 6.3 FL (6.5-10.1) L Neutrophils (%) (Auto) 49.3 % (45.0-75.0) Lymphocytes (%) (Auto) 24.5 % (20.0-45.0) Monocytes (%) (Auto) 15.3 % (1.0-10.0) H Eosinophils (%) (Auto) 9.6 % (0.0-3.0) H Basophils (%) (Auto) 1.3 % (0.0-2.0) Sodium Level 138 MMOL/L (136-145) Potassium Level 3.9 MMOL/L (3.5-5.1) Chloride Level 106 MMOL/L (98-107) Carbon Dioxide Level 26 MMOL/L (21-32) Anion Gap 6 mmol/L (5-15) Blood Urea Nitrogen 8 mg/dL (7-18) Creatinine 0.9 MG/DL (0.55-1.30) Estimat Glomerular Filtration Rate > 60 mL/min (>60) Glucose Level 89 MG/DL (74-106) Calcium Level 8.0 MG/DL (8.5-10.1) L Phosphorus Level 3.6 MG/DL (2.5-4.9) Magnesium Level 1.5 MG/DL (1.8-2.4) L Total Bilirubin 1.5 MG/DL (0.2-1.0) H Direct Bilirubin 0.7 MG/DL (0.0-0.3) H Aspartate Amino Transf (AST/SGOT) 37 U/L (15-37) Alanine Aminotransferase (ALT/SGPT) 20 U/L (12-78) Alkaline Phosphatase 98 U/L (46-116) Total Protein 5.7 G/DL (6.4-8.2) L Albumin 1.6 G/DL (3.4-5.0) L Globulin 4.1 g/dL Albumin/Globulin Ratio 0.4 (1.0-2.7) L Height (Feet): 6 Height (Inches): 3.00 Weight (Pounds): 236 General Appearance: WD/WN, no apparent distress, alert Cardiovascular: normal rate Respiratory/Chest: normal breath sounds, no respiratory distress Abdominal Exam: normal bowel sounds, non tender, soft, ascites, incision site Extremities: non-tender Shari Mistry NP Sep 21, 2018 10:54
--- NOTE | 2018-09-21 11:55 | NUR ---
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 CIRRHOSIS VS: BP 92/59, P 97, T 97.5, RR 19, SpO2 97 WBC 4.5, RVC 3.21, Hgb 10.7, Hct 32.3 IS:MAGNESIUM SULFATE 100ml IVPB RIFAXIMIN 550mg LACTULOSE 30gm LASIX 40mg PROTONIX 40mg ALDACTONE 50mg LABETALOL 100mg MED/SURG STATUS
[2018-09-21 12:00] VITALS: BP 106/66
--- NOTE | 2018-09-21 12:31 | Discharge Summary ---
Discharge Summary Hospital Course Date of Admission Sep 15, 2018 at 14:43 Date of Discharge Admitting Diagnosis abdominal pain/ascites HPI Zack Barrera is a 48 year old male who was admitted on Sep 15, 2018 at 14:43 for Abdominal Pain,Ascites Hospital Course Patient admitted to the medical service with recurrent ascites - seen by GI, underwent diagnostic and therapeutic paracentesis with 10 L removed. No evidence of SBP Patient will be discharged home with on Lasix, Aldactone and oxycodone. Patient was instructed to [facility] for new PCP #Decompensated cirrhosis #abdominal pain #Ascites #LLE swelling -s/p diagnostic paracentesis in ED without evidence for SBP -s/p therapeutic paracentesis with 10 liters removed and another 700 ml spontaneous drainage -S/p albumin infusion -continue furosemide/spironolactone #anemia, macrocytic -No signs for GI bleed -seen by hematology #HTN cont labetalol #Transaminitis #Elevated bilirubin -likely secondary to cirrhosis -seen by GI Time spent discharging the patient was 32 minutes Discharge Discharge Disposition Patient was discharged to home Discharge Diagnoses: (1) Ascites Kurtis Mensah MD Sep 21, 2018 12:31
--- NOTE | 2018-09-21 15:21 | General Progress Note ---
Assessment/Plan Assessment/Plan Assessment/Plan # Pancytopenia -- multiple etiologies very likely related to underlying liver disease, history of cirrhosis, decompensated, accompanied by coagulopathy as well --> peripheral smear has been ordered and does not show significant abnormalities --> Medications have been reviewed --> Continue to monitor for improvement, trend cbc --> Hep panel and HIV are negative, no hep b or hep C noted --> CT of the abd/pelvis shows Nodular liver surface suggestive of cirrhosis with moderate amount of ascites. Splenomegaly with paraesophageal varices suggestive of portal hypertension. --> AFP [id number] to r/o HCC, afp is 2.6 --> consider other causes, infections that could contribute --> reverse isolation if ANC is <2000 --> Give neupogen if ANC <1000 --> Transfuse if hgb <7, with 1 unit prbc # Coaguloapathy is related to underlying liver cirrhosis --> vit K administer on prn basis, sq as needed if bleeding, inr 1.4 --> currently w/o bleeding # Decompensated cirrhosis --> s/p paracentesis # Abdominal pain --> s/p diagnostic paracentesis in ED --> f/u peritoneal fluid analysis to r/o SBP --> IV antibiotics started in ED --> per gi and pain management recs # Transaminitis # Hyperbilirubinemia # HTN The timing of this note does not necessarily reflect the time of the patient was seen. Greatly appreciate consultation! Subjective HEENT: Denies: no symptoms, eye pain, blurred vision, tearing, double vision, ear pain, ear discharge, nose pain, nose congestion, throat pain, throat swelling, mouth pain, mouth swelling, other Cardiovascular: Denies: no symptoms, chest pain, edema, irregular heart rate, lightheadedness, palpitations, syncope, other Respiratory: Denies: no symptoms, cough, orthopnea, shortness of breath, SOB with excertion, SOB at rest, sputum, stridor, wheezing, other Gastrointestinal/Abdominal: Denies: no symptoms, abdomen distended, abdominal pain, black stools, tarry stools, blood in stool, constipated, diarrhea, difficulty swallowing, nausea, poor appetite, poor fluid intake, rectal bleeding , vomiting, other Genitourinary: Denies: no symptoms, burning, discharge, frequency, flank pain, hematuria, incontinence, pain, urgency, other Neurologic/Psychiatric: Denies: no symptoms, anxiety, depressed, emotional problems, headache, numbness, paresthesia, pre-existing deficit, seizure, tingling, tremors, weakness, other Endocrine: Denies: no symptoms, excessive sweating, flushing, intolerance to cold, intolerance to heat, increased hunger, increased thirst, increased urine, unexplained weight gain, unexplained weight loss, other Allergies: Coded Allergies: No Known Allergies (Unverified , 07/22/18) Subjective 09/20: no events, mildly worse abdomen today, prn para 09/21: no significant abdominal pain noted, cbc has been reviewed, no f/c Objective Last 24 Hour Vital Signs Date Time Temp Pulse Resp B/P (MAP) Pulse Ox O2 Delivery O2 Flow Rate FiO2 09/21/18 12:00 98.7 80 18 106/66 (79) 97 09/21/18 09:00 Room Air 09/21/18 08:49 91 108/63 09/21/18 08:00 98.0 91 19 108/63 (78) 97 09/21/18 04:00 97.5 74 19 96/58 (71) 97 09/21/18 00:00 98.2 78 18 92/59 (70) 97 09/20/18 21:00 Room Air 09/20/18 20:49 97 94/54 09/20/18 20:00 99.4 97 17 94/54 (67) 95 09/20/18 16:00 98.7 83 19 95/55 (68) 98 Intake and Output 09/20/18 09/21/18 19:00 07:00 Intake Total 400 ml Output Total 900 ml Balance -500 ml Intake Oral 400 ml Output Urine Total 900 ml # Voids 2 # Bowel Movements 1 Laboratory Tests 09/21/18 05:05: White Blood Count 4.5L, Red Blood Count 3.21L, Hemoglobin 10.7L, Hematocrit 32.3L, Mean Corpuscular Volume 101H, Mean Corpuscular Hemoglobin 33.2H, Mean Corpuscular Hemoglobin Concent 33.0, Red Cell Distribution Width 12.2, Platelet Count 135L, Mean Platelet Volume 6.3L, Neutrophils (%) (Auto) 49.3, Lymphocytes (%) (Auto) 24.5, Monocytes (%) (Auto) 15.3H, Eosinophils (%) (Auto) 9.6H, Basophils (%) (Auto) 1.3, Sodium Level 138, Potassium Level 3.9, Chloride Level 106, Carbon Dioxide Level 26, Anion Gap 6, Blood Urea Nitrogen 8, Creatinine 0.9 , Estimat Glomerular Filtration Rate > 60, Glucose Level 89, Calcium Level 8.0L , Phosphorus Level 3.6, Magnesium Level 1.5L, Total Bilirubin 1.5H, Direct Bilirubin 0.7H, Aspartate Amino Transf (AST/SGOT) 37, Alanine Aminotransferase ( ALT/SGPT) 20, Alkaline Phosphatase 98, Total Protein 5.7L, Albumin 1.6L, Globulin 4.1, Albumin/Globulin Ratio 0.4L Height (Feet): 6 Height (Inches): 3.00 Weight (Pounds): 236 Objective PE Vitals: reviewed, stable General Appearance: NAD HEENT: normocephalic, atraumatic Neck: non-tender, normal alignment Respiratory/Chest: nromal breath sounds bilaterally Cardiovascular/Chest: normal peripheral pulses, normal rate Abdomen: normal bowel sounds, soft, nontender ++ ascites Extremities: normal range of motion Tate Kelsey MD Sep 21, 2018 15:21
[2018-09-21 16:00] VITALS: BP 110/84
--- NOTE | 2018-09-21 16:56 | NUR ---
NURSE NOTES: Pt has D/C order. all discharge assessments and instructions done and pt verbally confirmed to understand all. pt is stable. V/S stable. prescription sent to pharmacy. med received and given to pt. pt still has leaking from paracentesis site, Dr zhu notified , visited pt and stated pt is ok to D/C. HOSPITAL PROVIDE TAXI FOR PT, iv access D/C, pt left hospital with accompany of his mother.
== END 2018-09-21 17:00 | disposition home or self-care (01) | DRG 280 ==
LOC: EMR 11:05 → EDBEDREQ 14:32 → 4E 14:43
PROC: 0W9G3ZX Drainage of Peritoneal Cavity, Percutaneous Approach, Diagnostic (ICD-10-PCS; principal; 2018-09-15)
DX: K70.31 Alcoholic cirrhosis of liver with ascites (principal); D61.818 Other pancytopenia; D68.4 Acquired coagulation factor deficiency; D68.9 Coagulation defect, unspecified; R18.8 Other ascites; D53.9 Nutritional anemia, unspecified; I10 Essential (primary) hypertension; R74.0 Nonspecific elevation of levels of transaminase and lactic acid dehydrogenase [LDH]
CPT/HCPCS: 36415; 71045; 74018; 76942; 80048; 80053; 80076; 81003; 82105; 82140; 82248; 82270; 82550; 82607; 82728; 82746; 83540; 83550; 83605; 83690; 83735; 84100; 84443; 85025; 85610; 85730; 86140; 86703; 86705; 86709; 86803; 87040; 87070; 87081; 87205; 87340; 89051; 93005; 93971; 96365; 96372; 96375; 99285; J2405; J8499

== ENCOUNTER 2018-10-20 17:04 | Emergency (ER) | payer MEDICAID ==
[~2018-10-20] VITALS: Ht 180.3 cm; Wt 93.0 kg
--- NOTE | 2018-10-20 17:15 | NUR ---
ED Nurse Note: Pt ambulated to Ed from home c/o abdominal pain 02/19 r/t ascites. Pt regularly requires paracentesis. Pt is A&Ox4, denies sob or chest pain. VSS
[2018-10-20 17:20] VITALS: BP 108/66
--- NOTE | 2018-10-20 17:33 | Emergency Room Report ---
History of Present Illness General Chief Complaint: Abdominal Pain Source: Patient Present Illness HPI Patient is a 48-year-old male presented after increased abdominal pain. Patient reports having a recent procedure where he had a paracentesis to the right side of his abdomen. Patient reports having worsening pain since the procedure. Patient's physician was unsuccessful at removing any fluid at that time. Patient had prior history of cirrhosis as well as alcohol abuse. He denies any vomiting or hematemesis. He had been having increased generalized discomfort. Reports having increased distention. Allergies: Coded Allergies: No Known Allergies (Unverified , 07/22/18) Patient History Past Medical History: see triage record Reviewed Nursing Documentation: PMH: Agreed; PSxH: Agreed Nursing Documentation-PMH Past Medical History: No History, Except For Hx Cardiac Problems: Yes Hx Hypertension: Yes Hx Cancer: No Hx Gastrointestinal Problems: Yes Hx Neurological Problems: No Hx Cerebrovascular Accident: No Hx Transient Ischemic Attacks: No Hx Dementia: No Hx Alzheimer's Disease: No Hx Parkinson's Disease: No Hx Meningitis: No Hx Encephalitis: No Hx Seizures: No Hx Epilepsy: No Hx Multiple Sclerosis: No Hx Cerebral Palsy: No Hx Amyotrophic Lat Sclerosis: No Hx Guillian-[place] Syndrome: No Hx Paralysis: No Hx Peripheral Neuropathy: No Hx Spinal Cord Injury: No Hx Head Trauma: No Hx Traumatic Brain Injury: No Hx Memory Loss: No Hx Concentration Difficulty: No Hx Tremors: No Hx Vertigo: No Hx Headaches: No Hx Aphasia: No Hx Dysphasia: No Hx Weakness: Yes Hx Fatigue: Yes Review of Systems All Other Systems: negative except mentioned in HPI Physical Exam Vital Signs Date Time Temp Pulse Resp B/P (MAP) Pulse Ox O2 Delivery O2 Flow Rate FiO2 10/20/18 17:11 98.8 80 22 95 Room Air Sp02 EP Interpretation: reviewed, normal General Appearance: normal inspection, well appearing, no apparent distress, alert, GCS 15, non-toxic Head: atraumatic ENT: normal ENT inspection, hearing grossly normal, normal voice Neck: normal inspection, full range of motion, supple, no bony tend Respiratory: normal inspection, lungs clear, normal breath sounds, no respiratory distress, no retraction, no wheezing Cardiovascular #1: regular rate, rhythm, no edema Gastrointestinal: normal inspection, normal bowel sounds, non tender, soft, no guarding, no hernia Genitourinary: no CVA tenderness Musculoskeletal: normal inspection, back normal, normal range of motion Neurologic: normal inspection, alert, oriented x3, responsive, 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 Differential diagnoses included Spontaneous bacterial peritonitis, perforated bowel,ischemic bowel, appendicitis , perforated viscus, abdominal aortic aneurysm, inferior myocardial infarction, viral gastroenteritis among others. Because of complexity of patient's case laboratory testing and imaging studies were ordered.Because of complexity of patient's case laboratory testing and imaging studies were ordered. Patient was noted to have some evidence of prior procedure. Bedside ultrasound did show some evidence of ascites. Patient's previous paracentesis site appears to be clean and dry without evidence of erythema or discharge. Patient does not have any evidence of tense ascites. He does not appear to have any focal tenderness at this time. Patient was offered paracentesis which he declined. He states he has an appointment in 1 week to have paracentesis performed. Patient appears to be awake and alert. Labs Test 10/20/18 17:44 White Blood Count 7.2 K/UL (4.8-10.8) Red Blood Count 3.29 M/UL (4.70-6.10) Hemoglobin 10.6 G/DL (14.2-18.0) Hematocrit 30.5 % (42.0-52.0) Mean Corpuscular Volume 93 FL (80-99) Mean Corpuscular Hemoglobin 32.1 PG (27.0-31.0) Mean Corpuscular Hemoglobin Concent 34.6 G/DL (32.0-36.0) Red Cell Distribution Width 11.9 % (11.6-14.8) Platelet Count 155 K/UL (150-450) Mean Platelet Volume 5.4 FL (6.5-10.1) Neutrophils (%) (Auto) 43.4 % (45.0-75.0) Lymphocytes (%) (Auto) 32.5 % (20.0-45.0) Monocytes (%) (Auto) 14.5 % (1.0-10.0) Eosinophils (%) (Auto) 7.7 % (0.0-3.0) Basophils (%) (Auto) 1.9 % (0.0-2.0) Prothrombin Time 13.9 SEC (9.30-11.50) Prothromb Time International Ratio 1.3 (0.9-1.1) Activated Partial Thromboplast Time 30 SEC (23-33) Sodium Level 138 MMOL/L (136-145) Potassium Level 3.7 MMOL/L (3.5-5.1) Chloride Level 105 MMOL/L (98-107) Carbon Dioxide Level 28 MMOL/L (21-32) Anion Gap 5 mmol/L (5-15) Blood Urea Nitrogen 7 mg/dL (7-18) Creatinine 1.0 MG/DL (0.55-1.30) Estimat Glomerular Filtration Rate > 60 mL/min (>60) Glucose Level 85 MG/DL (74-106) Calcium Level 8.2 MG/DL (8.5-10.1) Serum Alcohol < 3 mg/dL Last Vital Signs Date Time Temp Pulse Resp B/P (MAP) Pulse Ox O2 Delivery O2 Flow Rate FiO2 10/20/18 17:11 98.8 80 22 95 Room Air Status: improved Disposition: HOME, SELF-CARE Condition: Stable Referrals: NOT CHOSEN IPA/,REFERRING (PCP) Segundo Henderson MD October 20, 2018 17:33
[2018-10-20 17:58] LABS: BASOPHILS % (AUTO) 1.9 % (0.0-2.0); EOSINOPHILS % (AUTO) 7.7 % (0.0-3.0); HEMATOCRIT 30.5 % (42.0-52.0); HEMOGLOBIN 10.6 G/DL (14.2-18.0); LYMPHOCYTES % (AUTO) 32.5 % (20.0-45.0); MEAN CORPUSCULAR VOLUME 93 FL (80-99); MONOCYTES % (AUTO) 14.5 % (1.0-10.0); NEUTROPHILS % (AUTO) 43.4 % (45.0-75.0); PLATELET COUNT 155 K/UL (150-450); RED BLOOD COUNT 3.29 M/UL (4.70-6.10); RED CELL DISTRIBUTION WIDTH 11.9 % (11.6-14.8); WHITE BLOOD COUNT 7.2 K/UL (4.8-10.8)
--- NOTE | 2018-10-20 17:59 | NUR ---
ED Nurse Note: Paracentesis found not appropriate at this time per Dr Henderson. Pt VSS. Pain has lessened since arrival, from 02/19 to 11/19. Will continue to monitor
[2018-10-20 18:07] LABS: ANION GAP 5 mmol/L (5-15); BLOOD UREA NITROGEN 7 mg/dL (7-18); CALCIUM 8.2 MG/DL (8.5-10.1); CARBON DIOXIDE 28 MMOL/L (21-32); CHLORIDE 105 MMOL/L (98-107); INR 1.3 (0.9-1.1); POTASSIUM 3.7 MMOL/L (3.5-5.1); SODIUM 138 MMOL/L (136-145)
[2018-10-20 18:18] LABS: ALANINE AMINOTRANSFERASE 16 U/L (12-78); ALBUMIN 2.2 G/DL (3.4-5.0); ALBUMIN/GLOBULIN RATIO 0.4 (1.0-2.7); ALKALINE PHOSPHATASE 119 U/L (46-116); ASPARTATE AMINO TRANSFERASE 30 U/L (15-37); BILIRUBIN,TOTAL 1.7 MG/DL (0.2-1.0)
[2018-10-20 18:20] LABS: BILIRUBIN,DIRECT 0.9 MG/DL (0.0-0.3)
[2018-10-20 18:41] VITALS: BP 105/70
--- NOTE | 2018-10-20 18:41 | NUR ---
ER DISCHARGE NOTE: Patient is cleared to be discharged per ERMD, pt is aox4, on room air, with stable vital signs. pt was given dc and prescription instructions, pt was able to verbalize understanding, pt id band and iv site removed without complications. pt is able to ambulate with steady gait. pt took all belongings.
== END 2018-10-20 18:43 | disposition home or self-care (01) ==
LOC: EMR 17:20
DX: R10.9 Unspecified abdominal pain (principal); I10 Essential (primary) hypertension
CPT/HCPCS: 36415; 80053; 80329; 82248; 83690; 85025; 85610; 85730; 96374; 96375; 99284; J2405; S0028

== ENCOUNTER 2019-12-11 10:32 | Emergency (ER) | payer MEDICAID, OTHER ==
[~2019-12-11] VITALS: Ht 177.8 cm; Wt 102.1 kg
[2019-12-11 10:41] VITALS: BP 131/83
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
[2019-12-11] MEDS ORDERED: Fluorescein Strips LEFT EYE ONE (11:00)
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
--- NOTE | 2019-12-11 11:26 | NUR ---
ED Nurse Note: pt back from CT
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
--- NOTE | 2019-12-11 12:05 | Diagnostic Imaging Report ---
EXAM: CT CT Facial Bones no Contrast CLINICAL HISTORY: Trauma with facial pain. TECHNIQUE: Axial images obtained through the face with subsequent sagittal and coronal reformat images. All CT scans at this facility are performed using dose modulation techniques as appropriate to a performed exam including the following: automated exposure control with adjustment of the mA and/or kV according to patient size. RADIATION DOSE: CTDIvol: 6.2 mGy DLP: 156.8 mGy-cm Dose information generated by the CT scanner is available in PACS. COMPARISON: None FINDINGS: There is a nasal fracture of undetermined age. The orbits appear unremarkable. The zygomatic arches are intact. The pterygoid plates show normal configuration. Mild mucosal thickening noted in the maxillary sinuses. No hemorrhage level identified. The mandible and TMJs are congruent. There is soft tissue contusion noted in the left cheek and left periorbital region. IMPRESSION: NASAL FRACTURE OF UNDETERMINED AGE. NO OTHER DISTINCT MAXILLOFACIAL FRACTURES SEEN PRESENTLY. SOFT TISSUE CONTUSION LEFT MIDFACE AND LEFT PERIORBITAL REGION.
--- NOTE | 2019-12-11 12:07 | Diagnostic Imaging Report ---
EXAM: CT CT C Spine no Contrast CLINICAL HISTORY: Trauma with neck pain. TECHNIQUE: Axial images obtained through the cervical spine with subsequent sagittal and coronal reformat images. All CT scans at this facility are performed using dose modulation techniques as appropriate to a performed exam including the following: automated exposure control with adjustment of the mA and/or kV according to patient size. RADIATION DOSE: CTDIvol: 6.2 mGy DLP: 156.8 mGy-cm Dose information generated by the CT scanner is available in PACS. COMPARISON: None FINDINGS: There is anatomic alignment. Vertebral bodies are intact without compression deformity. There is no fracture, bony lesions or erosions. Mild degenerative disc space narrowing noted in the lower cervical spine. There is also mild degenerative changes at the atlantodens interval. Odontoid is intact. There is no prevertebral soft tissue swelling. IMPRESSION: MILD DEGENERATIVE CHANGES. NO ACUTE FRACTURE OR TRAUMATIC MALALIGNMENT.
[2019-12-11] MEDS ORDERED: LIDODERM700 M1 TOPIC (13:01)
[2019-12-11] MEDS ORDERED: ROBAXIN-750750 MG PO (13:01)
--- NOTE | 2019-12-11 13:38 | NUR ---
ED Nurse Note: Pt cleared by health care Provider for discharge. DC instructions/prescription was given and explained to pt and verbalized understanding of teachings. All medical deviecs such as ID band removed. Pt is AAO x4, ambulatory and left with all personal belongings.
[2019-12-11 13:39] VITALS: BP 131/83
== END 2019-12-11 13:39 | disposition home or self-care (01) ==
LOC: EMR 11:12
DX: S02.2XXA Fracture of nasal bones, initial encounter for closed fracture (principal); S00.12XA Contusion of left eyelid and periocular area, initial encounter; H11.32 Conjunctival hemorrhage, left eye; Y04.8XXA Assault by other bodily force, initial encounter; Y92.9 Unspecified place or not applicable; I10 Essential (primary) hypertension; K74.60 Unspecified cirrhosis of liver
CPT/HCPCS: 70450; 70486; 72125; Z7502; 99284

== ENCOUNTER 2020-03-11 18:31 | Emergency (ER) | payer OTHER ==
[~2020-03-11] VITALS: Ht 165.1 cm; Wt 98.0 kg
[~2020-03-11 18:31] MED LIST changes: +LIDODERM700 M1 TOPIC; +ROBAXIN-750750 MG PO
[2020-03-11 18:54] VITALS: BP 123/78
[2020-03-11] MEDS ORDERED: Morphine Sulfate 2mg/ml Inj(IV/IM USE ONLY) IVP ONE (19:15)
[2020-03-11 19:19] LABS: HEMATOCRIT 36.1 % (42.0-52.0); MEAN CORPUSCULAR VOLUME 117 FL (80-99); PLATELET COUNT 93 K/UL (150-450); RED BLOOD COUNT 3.09 M/UL (4.70-6.10); RED CELL DISTRIBUTION WIDTH 14.6 % (11.6-14.8); WHITE BLOOD COUNT 6.9 K/UL (4.8-10.8)
[2020-03-11 19:34] VITALS: BP 139/82
[2020-03-11 19:37] LABS: ANION GAP 6 mmol/L (5-15); BLOOD UREA NITROGEN 9 mg/dL (7-18); CALCIUM 8.3 MG/DL (8.5-10.1); CARBON DIOXIDE 25 MMOL/L (21-32); CHLORIDE 97 MMOL/L (98-107); CREATININE 0.8 MG/DL (0.55-1.30); POTASSIUM 4.1 MMOL/L (3.5-5.1); SODIUM 128 MMOL/L (136-145)
--- NOTE | 2020-03-11 19:39 | Emergency Room Report ---
History of Present Illness General Chief Complaint: Abdominal Pain Source: Patient (Sabina Latif) Present Illness HPI 50-year-old male with no known significant past medical history who lives in a custodial here complaining of 2 days of left-sided abdominal pain, acid reflux, shortness of breath when walking, chest pain, bilateral leg swelling. Complains of cough however denies any loss of taste or smell. Denies any diarrhea. Has not taken medication for symptom relief. Reports that the custodial that he lives that has people who are positive for COVID. Patient has scleral icterus in both eyes and reports that he has a history of drinking alcohol however has not drank any alcohol in a long time. Denies any drug use. Patient is neurovascularly intact. Denies tobacco smoke and drug use. Leg swelling appears to be chronic, bilateral legs, with pitting edema. Denies fall or injury. (Sabina Latif) Allergies: Coded Allergies: No Known Allergies (Unverified , 07/22/18) COVID-19 Screening Contact w/high risk pt: No Recent Travel to affected area: No Experienced COVID-19 symptoms?: Yes COVID-19 Testing performed PREVENTION COORDINATOR: Yes COVID-19 Screening: Negative COVID-19 COVID-19 Testing Source: 2 weeks ago (Sabina Latif) Patient History Past Medical History: see triage record Past Surgical History: none Pertinent Family History: none Reviewed Nursing Documentation: PMH: Agreed; PSxH: Agreed (Sabina Latif) Nursing Documentation-PMH Past Medical History: No History, Except For Hx Cardiac Problems: Yes Hx Hypertension: Yes Hx Cancer: No Hx Gastrointestinal Problems: Yes - cirrhosis Hx Neurological Problems: No Hx Cerebrovascular Accident: No Hx Transient Ischemic Attacks: No Hx Dementia: No Hx Alzheimer's Disease: No Hx Parkinson's Disease: No Hx Meningitis: No Hx Encephalitis: No Hx Seizures: No Hx Epilepsy: No Hx Multiple Sclerosis: No Hx Cerebral Palsy: No Hx Amyotrophic Lat Sclerosis: No Hx Guillian-[place] Syndrome: No Hx Paralysis: No Hx Peripheral Neuropathy: No Hx Spinal Cord Injury: No Hx Head Trauma: No Hx Traumatic Brain Injury: No Hx Memory Loss: No Hx Concentration Difficulty: No Hx Tremors: No Hx Vertigo: No Hx Headaches: No Hx Aphasia: No Hx Dysphasia: No Hx Weakness: Yes Hx Fatigue: Yes (Sabina Latif) Review of Systems All Other Systems: negative except mentioned in HPI (Sabina Latif) Physical Exam Vital Signs Date Time Temp Pulse Resp B/P (MAP) Pulse Ox O2 Delivery O2 Flow Rate FiO2 03/11/20 18:35 98.1 122 20 132/79 (96) 95 Room Air Sp02 EP Interpretation: reviewed, abnormal - Tachycardic General Appearance: mild distress Head: normocephalic, atraumatic Eyes: bilateral eye PERRL, bilateral eye scleral icterus ENT: hearing grossly normal, normal pharynx, no angioedema, normal voice Neck: full range of motion, supple/symm/no masses Respiratory: chest non-tender, lungs clear, normal breath sounds, no rhonchi, speaking full sentences Cardiovascular #1: normal inspection, no murmur Cardiovascular #2: 2+ carotid (R), 2+ carotid (L), 2+ radial (R), 2+ radial (L), 2+ dorsalis pedis (R), 2+ dorsalis pedis (L) Gastrointestinal: non tender, soft Genitourinary: no CVA tenderness Musculoskeletal: back normal, no calf tenderness, swelling - Bilateral lower legs with pitting edema Neurologic: alert, motor strength/tone normal, oriented x3, sensory intact, responsive, speech normal Psychiatric: judgement/insight normal, memory normal, mood/affect normal, no suicidal/homicidal ideation Skin: no rash Lymphatic: no adenopathy (Sabina Latif) Medical Decision Making PA Attestation All my diagnosis and treatment plans were reviewed ad discussed with my supervising physician Dr. Manriquez (Sabina Latif) Medicare Attestation The history of Zack Edward has been reviewed and management options for him have been examined and discussed by Marni Manriquez. I have personally examined and interviewed the patient. (Marni Manriquez DO) Diagnostic Impression: Primary Impression: Tachycardia Additional Impressions: Gastritis Pedal edema Liver cirrhosis Portal hypertension Fluid overload ER Course 50-year-old male with no known significant past medical history who lives in a custodial here complaining of 2 days of left-sided abdominal pain, acid reflux, shortness of breath when walking, chest pain, bilateral leg swelling. Complains of cough however denies any loss of taste or smell. Denies any diarrhea. Has not taken medication for symptom relief. Reports that the custodial that he lives that has people who are positive for COVID. Patient has scleral icterus in both eyes and reports that he has a history of drinking alcohol however has not drank any alcohol in a long time. Denies any drug use. Patient is neurovascularly intact. Denies tobacco smoke and drug use. Leg swelling appears to be chronic, bilateral legs, with pitting edema. Denies fall or injury. Ddx considered but are not limited to: Coronavirus, PAGE, gastritis, PE, generalized abdominal pain, pneumonia, respiratory distress, liver cirrhosis, portal hypertension Vital signs: are WNL, pt. is afebrile H&PE are most consistent with:fluid overload , Liver cirrhosis, portal hypertension, tachycardia ORDERS: Sepsis order set, d-dimer, rapid covert test ED INTERVENTIONS: NS bolus, Pepcid, Zofran, morphine, lasix 20IV Patient was admitted with diagnosis of liver cirrhosis, portal hypertension, tachycardia to [facility] under supervision of Dr.: Manriquez pt stable at time of admission (Sabina Latif) EKG Diagnostic Results Rate: tachycardiac Rhythm: other - tachy ST Segments: no acute changes Other Impression No acute ST changes ASA given to the pt in ED: No (Sabina Latif) Chest X-Ray Diagnostic Results Chest X-Ray Diagnostic Results : Chest X-Ray Ordered: Yes # of Views/Limited/Complete: 1 View Indication: Chest Pain EP Interpretation: Yes PA Xray: Interpretation reviewed, and agrees with findings. Interpretation: no consolidation, no effusion, no pneumothorax, no acute cardiopulmonary disease Impression: No acute disease Electronically Signed by: Sabina Sunshine PA-C (Sabina Latif) CT/MRI/US Diagnostic Results CT/MRI/US Diagnostic Results #1: Imaging Test Ordered: CTA chest abd pelvis with contrast Impression COMPARISON: No relevant prior studies available. FINDINGS: Lungs: No consolidation, interstitial edema, or suspicious pulmonary nodule. Pleural space: Unremarkable. No pneumothorax. No significant effusion. Heart: Heart size is normal. No pericardial effusion. Bones/joints: Unremarkable. Soft tissues: Unremarkable. Vasculature: Normal caliber of the aorta. No acute aortic syndrome. No pulmonary embolism. Lymph nodes: Unremarkable. IMPRESSION: 1. No pulmonary embolism or acute aortic syndrome. 2. No acute abnormality in the chest. EXAM: CT Abdomen and Pelvis Without and With Intravenous Contrast CLINICAL HISTORY: PE TECHNIQUE: Axial computed tomography images of the abdomen and pelvis without and with intravenous contrast. CTDI is 13.7 mGy and DLP is 1004.8 mGy-cm. One or more of the following dose reduction techniques were used: automated exposure control, adjustment of the mA and/or kV according to patient size, use of iterative reconstruction technique. COMPARISON: No relevant prior studies available. FINDINGS: Lung bases: Unremarkable. ABDOMEN: Liver: Cirrhotic liver. Gallbladder and bile ducts: Status post cholecystectomy. Pancreas: Unremarkable. No mass. No ductal dilation. Spleen: Splenomegaly measuring 15 cm. Adrenals: Unremarkable. Kidneys and ureters: Unremarkable. No solid mass. No obstructing stones. No hydronephrosis. Stomach and bowel: Mucosal thickening within the small bowel favored related to portal hypertension. No bowel obstruction. No acute colonic abnormality. PELVIS: Appendix: No findings to suggest acute appendicitis. Bladder: Unremarkable. No mass. No stones. Reproductive: Unremarkable as visualized. ABDOMEN and PELVIS: Intraperitoneal space: Moderate volume ascites. No free air. Bones/joints: No acute fracture. Soft tissues: Body wall edema. Vasculature: Patent portal vein. Extensive portosystemic varices. Lymph nodes: Unremarkable. IMPRESSION: 1. Cirrhotic liver with sequela of portal hypertension including moderate ascites, portosystemic varices, and splenomegaly. 2. Mucosal thickening in the small bowel, favored portal enteropathy. Radiologist: Beto Marcos MD Electronically Signed: 03/11/20 20:45 CT/MRI/US Diagnostic Results #2: Imaging Test Ordered: venous duplex BL lower extremities Impression negative DVT (Sabina Latif) Last Vital Signs Date Time Temp Pulse Resp B/P (MAP) Pulse Ox O2 Delivery O2 Flow Rate FiO2 03/11/20 18:54 115 20 Room Air 03/11/20 18:54 98.1 123/78 95 (Sabina Latif) Disposition: SHORT-TERM HOSP Condition: Serious Sabina Latif Mar 11, 2020 19:39 Marni Manriquez DO Mar 11, 2020 22:19
[2020-03-11 19:42] LABS: INR 1.6 (0.9-1.1)
[2020-03-11 19:47] LABS: APPEARANCE,URINE SLIGHTLY CLOUDY; BILIRUBIN, URINE 3+ (NEGATIVE); GLUCOSE, URINE (UA) NEGATIVE (NEGATIVE); KETONES,URINE 1+ (NEGATIVE); LEUKOCYTE ESTERASE ,URINE 1+ (NEGATIVE); NITRITE,URINE POSITIVE (NEGATIVE); PH,URINE 5 (4.5-8.0); PROTEIN,URINE 1+ (NEGATIVE); UROBILINOGEN,URINE 12 MG/DL (0.0-1.0)
[2020-03-11 19:51] LABS: ALANINE AMINOTRANSFERASE 62 U/L (12-78); ALBUMIN 2.3 G/DL (3.4-5.0); ALBUMIN/GLOBULIN RATIO 0.5 (1.0-2.7); ALKALINE PHOSPHATASE 170 U/L (46-116); ASPARTATE AMINO TRANSFERASE 130 U/L (15-37); BILIRUBIN,TOTAL 9.8 MG/DL (0.2-1.0); CKMB 4.1 NG/ML (0.0-3.6); CREATINE KINASE 279 U/L (26-308)
[2020-03-11 19:53] LABS: COLOR,URINE AMBER
[2020-03-11 19:54] LABS: BILIRUBIN,DIRECT 5.9 MG/DL (0.0-0.3)
[2020-03-11] MEDS ORDERED: Omnipaque-300 100ml vial INJ PRN (20:00)
[2020-03-11] MEDS ORDERED: Omnipaque 350 100ml vial INJ PRN (20:00)
--- NOTE | 2020-03-11 20:46 | Diagnostic Imaging Report ---
EXAM: CT Chest Without and With Intravenous Contrast CLINICAL HISTORY: PE TECHNIQUE: Axial computed tomography images of the chest without and with intravenous contrast. CTDI is 13.7 mGy and DLP is 1004.8 mGy-cm. One or more of the following dose reduction techniques were used: automated exposure control, adjustment of the mA and/or kV according to patient size, use of iterative reconstruction technique. COMPARISON: No relevant prior studies available. FINDINGS: Lungs: No consolidation, interstitial edema, or suspicious pulmonary nodule. Pleural space: Unremarkable. No pneumothorax. No significant effusion. Heart: Heart size is normal. No pericardial effusion. Bones/joints: Unremarkable. Soft tissues: Unremarkable. Vasculature: Normal caliber of the aorta. No acute aortic syndrome. No pulmonary embolism. Lymph nodes: Unremarkable. IMPRESSION: 1. No pulmonary embolism or acute aortic syndrome. 2. No acute abnormality in the chest. EXAM: CT Abdomen and Pelvis Without and With Intravenous Contrast CLINICAL HISTORY: PE TECHNIQUE: Axial computed tomography images of the abdomen and pelvis without and with intravenous contrast. CTDI is 13.7 mGy and DLP is 1004.8 mGy-cm. One or more of the following dose reduction techniques were used: automated exposure control, adjustment of the mA and/or kV according to patient size, use of iterative reconstruction technique. COMPARISON: No relevant prior studies available. FINDINGS: Lung bases: Unremarkable. ABDOMEN: Liver: Cirrhotic liver. Gallbladder and bile ducts: Status post cholecystectomy. Pancreas: Unremarkable. No mass. No ductal dilation. Spleen: Splenomegaly measuring 15 cm. Adrenals: Unremarkable. Kidneys and ureters: Unremarkable. No solid mass. No obstructing stones. No hydronephrosis. Stomach and bowel: Mucosal thickening within the small bowel favored related to portal hypertension. No bowel obstruction. No acute colonic abnormality. PELVIS: Appendix: No findings to suggest acute appendicitis. Bladder: Unremarkable. No mass. No stones. Reproductive: Unremarkable as visualized. ABDOMEN and PELVIS: Intraperitoneal space: Moderate volume ascites. No free air. Bones/joints: No acute fracture. Soft tissues: Body wall edema. Vasculature: Patent portal vein. Extensive portosystemic varices. Lymph nodes: Unremarkable. IMPRESSION: 1. Cirrhotic liver with sequela of portal hypertension including moderate ascites, portosystemic varices, and splenomegaly. 2. Mucosal thickening in the small bowel, favored portal enteropathy.
[2020-03-11 23:00] VITALS: BP 123/89
--- NOTE | 2020-03-12 12:21 | Diagnostic Imaging Report ---
Indication: Shortness of breath Technique: One view of the chest Comparison: 09/15/2018 Findings: There is minimal atelectasis at the lung bases, lungs and pleural spaces otherwise clear. Previously demonstrated right basilar opacity is no longer evident. The heart size is normal. Inspiration is suboptimal Impression: No acute process
--- NOTE | 2020-03-12 12:22 | Diagnostic Imaging Report ---
Indication: Leg pain Technique: Grayscale and duplex images of the bilateral lower extremity veins Comparison: None Findings: Bilaterally, grayscale and duplex images demonstrate no evidence of intraluminal thrombus. Normal phasic Doppler waveforms, demonstrating normal augmentation response and no evidence of valvular insufficiency. Greater saphenous vein(s) and tibial veins are patent. Normal compressibility. Impression: Negative for evidence of lower extremity deep venous thrombosis bilaterally
--- NOTE | 2020-03-12 17:37 | Cardiology Report ---
APPROVED REPORT EKG Measurement Heart [id number] <Conclusion> Sinus tachycardia Moderate voltage criteria for LVH, may be normal variant Possible Lateral infarct, age undetermined Abnormal ECG
== END 2020-03-11 23:00 | disposition short-term general hospital (02) ==
LOC: EMR 19:30
DX: R00.0 Tachycardia, unspecified (principal); K29.70 Gastritis, unspecified, without bleeding; R60.9 Edema, unspecified; K74.60 Unspecified cirrhosis of liver; K76.6 Portal hypertension; I10 Essential (primary) hypertension; F10.21 Alcohol dependence, in remission
CPT/HCPCS: 36415; 71045; 71275; 74174; 80053; 81003; 82248; 82550; 82553; 83605; 83615; 83880; 84484; 85007; 85025; 85379; 85610; 85730; 86140; 87040; 87086; 93005; 93970; 96361; 96374; 96375; G0480; J1940; J2270; J2405; J7030; Q9967; S0028; U0002; Z7502; 99285